=== PATIENT | male | born 1950 | race Caucasian/White ===

== ENCOUNTER 2018-08-12 10:24 | Outpatient (CLI) | payer BC ==
--- NOTE | 2018-08-12 13:38 | ULT ---
BILATERAL LOWER EXTREMITY ULTRASOUND WITH VENOUS DOPPLER DUPLEX: CPT: 16622 ICD-10-PCS: B54D INDICATIONS: Lower extremity edema. TECHNIQUE: Color-flow Doppler, spectral wave-form analysis of pulsed Doppler, and sargent-scale imaging with compre ssion and augmentation, were used to evaluate the bilateral common femoral, femoral, popliteal, poste rior tibial, and superficial femoral veins, and the proximal portions of the profunda femoral and gre ater saphenous veins. FINDINGS: There is appropriate compressibility and flow within the imaged deep venous system of each lower extr emity. There is a heterogeneous, oval-shaped mass of the right inguinal region, slightly greater than 4 cm i n length. This may relate to an enlarged lymph node. There is incidental note of soft tissue edema. IMPRESSION: 1. No deep venous thrombosis of the visualized bilateral lower extremity. 2. Probable enlarged right inguinal lymph node. Recommend clinical correlation. 3. Soft tissue edema. POS: [facility]
== END 2018-08-12 10:25 | disposition home or self-care (01) ==
LOC: BICULT 10:24
PROVIDERS: ATTEND Family Medicine
DX: R60.0 Localized edema (principal)
CPT/HCPCS: 93970

== ENCOUNTER 2018-11-09 08:25 | Outpatient (CLI) | payer BC, OTHER ==
[2018-11-09 09:23] LABS: #Basophils 0.1 thou/uL (0.0-0.2); #Eosinphils 0.2 thou/uL (0.0-0.7); #Lymphocytes 0.7 thou/uL (1.20-3.40); #Monocytes 1.2 thou/uL (0.11-0.59); #Neutrophils 6.3 thou/uL (1.40-6.50); %Basophils 0.8 % (0.0-1.0); %Eosinophils 2.9 % (0.0-10.0); %Lymphocytes 8.4 % (21.0-51.0); %Neutrophils 73.8 % (42.0-75.0); Hemoglobin 13.9 g/dL (14.0-18.0); Mean Corpuscular HGB CONC 32.2 g/dL (32.0-36.0); Mean Corpuscular Hemoglobin 28.1 pg (27.0-31.0); Mean Corpuscular Volume 87.2 fL (78.0-98.0); Mean Platelet Volume 9.3 fL (7.4-10.4); Platelet Count 187 thou/uL (130-400); RBC Distribution Width 14.9 % (11.5-14.5); Red Blood Cell (RBC) Count 4.94 mill/uL (4.70-6.10); White Blood Cell (WBC) Count 8.5 thou/uL (4.8-10.8)
[2018-11-09 09:37] LABS: ALT (SGPT) 25 U/L (8-55); AST (SGOT) 24 U/L (5-34); Albumin 3.9 g/dL (3.4-4.8); Alkaline Phosphatase 144 U/L (40-150); Anion Gap 15 mmol/L (10-20); BUN (Urea Nitrogen) 25 mg/dL (8.4-25.7); Calc. Creatinine Clearance 0 mL/min (70-130); Calcium 9.9 mg/dL (7.8-10.44); Carbon Dioxide 27 mmol/L (23-31); Chloride 96 mmol/L (98-107); Estimated GFR-MDRD 72; Globulin 3.4 g/dL (2.4-3.5); Glucose 265 mg/dL (80-115); Potassium 4.5 mmol/L (3.5-5.1); Protein, Total 7.3 g/dL (5.8-8.1); Sodium 133 mmol/L (136-145)
== END 2018-11-09 08:26 | disposition home or self-care (01) ==
LOC: LABBT 08:25
PROVIDERS: ATTEND Internal Medicine Cardiovascular Disease
DX: Z01.812 Encounter for preprocedural laboratory examination (principal); I42.9 Cardiomyopathy, unspecified
CPT/HCPCS: 80053; 85025

== ENCOUNTER 2018-11-11 05:52 | Day surgery (SDC) | payer BC, OTHER ==
[2018-11-03 09:05] VITALS: BMI 33.6
[2018-11-11] MEDS ORDERED: Midazolam HCl 2 mg/2 ml Vial ONE (06:30)
[2018-11-11] MEDS ORDERED: Fentanyl 100 MCG/2 ML VIAL ONE (06:31)
[2018-11-11] MEDS ORDERED: Lidocaine 1% (PF) 30 ML VIAL ONE (07:10)
[2018-11-11] MEDS ORDERED: Iopamidol 370 76% 100 ML VIAL ONE (10:14)
== END 2018-11-11 12:50 | disposition home or self-care (01) ==
LOC: CCL 05:52
PROVIDERS: ATTEND Internal Medicine Cardiovascular Disease
PROC: 4A023N7 Measurement of Cardiac Sampling and Pressure, Left Heart, Percutaneous Approach (ICD-10-PCS; principal; 2018-11-11)
PROC: B2111ZZ Fluoroscopy of Multiple Coronary Arteries using Low Osmolar Contrast (ICD-10-PCS; principal; 2018-11-11)
DX: I25.10 Atherosclerotic heart disease of native coronary artery without angina pectoris (principal); I42.9 Cardiomyopathy, unspecified; E11.9 Type 2 diabetes mellitus without complications; I10 Essential (primary) hypertension; E78.5 Hyperlipidemia, unspecified; K21.9 Gastro-esophageal reflux disease without esophagitis; I48.1 Persistent atrial fibrillation; I83.893 Varicose veins of bilateral lower extremities with other complications; Z79.01 Long term (current) use of anticoagulants; Z79.4 Long term (current) use of insulin; Z79.82 Long term (current) use of aspirin; Z79.899 Other long term (current) drug therapy; Z88.2 Allergy status to sulfonamides
CPT/HCPCS: 36416; 76942; 93458; C1769; J1644; J2001; J2250; J3010; Q9967

== ENCOUNTER 2018-12-21 17:10 | Inpatient (IN) | payer BC, OTHER ==
[2018-12-21 17:58] LABS: #Eosinphils 0.8 thou/uL (0.0-0.7); #Lymphocytes 0.5 thou/uL (1.20-3.40); #Neutrophils 4.9 thou/uL (1.40-6.50); %Basophils 0.2 % (0.0-1.0); %Eosinophils 11.3 % (0.0-10.0); %Monocytes 13.6 % (0.0-10.0); Mean Corpuscular HGB CONC 32.1 g/dL (32.0-36.0); Mean Corpuscular Hemoglobin 27.2 pg (27.0-31.0); Mean Corpuscular Volume 84.6 fL (78.0-98.0); Mean Platelet Volume 8.6 fL (7.4-10.4); Platelet Count 224 thou/uL (130-400); RBC Distribution Width 15.3 % (11.5-14.5); Red Blood Cell (RBC) Count 4.79 mill/uL (4.70-6.10); White Blood Cell (WBC) Count 7.2 thou/uL (4.8-10.8)
[2018-12-21 18:26] LABS: ALT (SGPT) 13 U/L (8-55); AST (SGOT) 22 U/L (5-34); Albumin 3.6 g/dL (3.4-4.8); Alkaline Phosphatase 198 U/L (40-150); Anion Gap 11 mmol/L (10-20); BUN (Urea Nitrogen) 12 mg/dL (8.4-25.7); Bilirubin, Total 1.2 mg/dL (0.2-1.2); CK (CPK) 52 U/L (30-200); Calc. Creatinine Clearance 0 mL/min (70-130); Calcium 9.5 mg/dL (7.8-10.44); Carbon Dioxide 26 mmol/L (23-31); Chloride 99 mmol/L (98-107); Estimated GFR-MDRD 87; Lipase 58 U/L (8-78); Potassium 4.3 mmol/L (3.5-5.1); Protein, Total 6.6 g/dL (5.8-8.1); Sodium 132 mmol/L (136-145)
[2018-12-21 18:31] LABS: Glucose 58 mg/dL (80-115)
--- NOTE | 2018-12-21 19:04 | RAD ---
EXAM: CHEST ONE VIEW HISTORY: Dyspnea and shortness of breath which started today. COMPARISON: 08/25/2018 FINDINGS: Cardiac silhouette is magnified by projection but does appear mildly enlarged. The left lung base is not well evaluated due to the enlarged cardiac silhouette and portable technique of the study. Visualized lungs are otherwise clear. Degenerative changes are again seen in the spine. Vascular calc ifications are seen in the thoracic aorta. IMPRESSION: 1. Suboptimal evaluation left lung base, but there is otherwise no acute cardiopulmonary process. 2. Mild cardiomegaly.
[2018-12-21 22:08] VITALS: BMI 36.8
[2018-12-21] MEDS ORDERED: HYDROcodone/Acetaminophen 5/325 mg Tablet PO PRN (23:00)
[2018-12-21] MEDS ORDERED: Ondansetron ODT 4 MG TAB PO PRN (23:00)
[2018-12-21] MEDS ORDERED: Acetaminophen 325 MG TAB PO PRN (23:00)
[2018-12-21] MEDS ORDERED: Dextrose 50% Abboject 50 ML SYRINGE SLOW IVP PRN (23:06)
[2018-12-21] MEDS ORDERED: Mupirocin 2% Ointment 22 GM Tube TOP PRN (23:06)
[2018-12-21] MEDS ORDERED: Insulin Regular 300 UNITS/3 ML VIAL SC PRN (23:06)
[2018-12-21] MEDS ORDERED: Dextrose 5% in Water 1,000 ML IV PRN (23:06)
[2018-12-21] MEDS ORDERED: Metolazone 5 MG TAB PO SCH (23:30)
[2018-12-22] MEDS: Clindamycin/D5W 600 MG in Premix Bag 1 BAG IVPB SCH ×3 (00:28→17:10)
[2018-12-22] MEDS ORDERED: HumaLOG 300 UNITS/3 ML VIAL SC SCH (01:00)
--- NOTE | 2018-12-22 03:23 | HP ---
HISTORY OF PRESENT ILLNESS: This is a 68-year-old white male with history of polio, atrial fibrillation, cardiomyopathy, who presents with a 1-hour history of shortness of breath. The patient was at home watching TV and suddenly became short of breath. States he felt his abdomen was swelling. 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 He wears a LifeVest sporadically, he is supposed to wear 24 hours. He was also placed on warfarin for anticoagulation; however, he stopped this due to the diarrhea and dizziness. He was also found to be allergic to Eliquis, Pradaxa, as well as Lasix, important medicines in his condition. The patient even had a recent venous Doppler which was unremarkable. He also forgot to bring his LifeVest to the hospital. Other than some noncompliance, he is a relatively pleasant individual. He has been followed by Dr. Henry and Dr. Watkins for years. He also was found to have a drug eruption rash due to Lasix. He did see Dermatology. He was on clindamycin for a period time; however, his skin infection is returning. He has multiple sores all over. PAST MEDICAL HISTORY: Polio with left leg atrophy since 1951, severe hypertension, hyperlipidemia, recurrent umbilical hernia, history of elevated liver function test, peptic ulcer disease, hypertension, hyperlipidemia, chronic atrial fibrillation, and cardiomyopathy with ejection fraction of 33%. PAST SURGICAL HISTORY: Tonsillectomy. FAMILY HISTORY: Father at 90, mother at 68. Does have siblings with pancreatic cancer, brain cancer. SOCIAL HISTORY: He is a nonsmoker. Does not drink alcohol. He lives with his children. ALLERGIES: PENICILLIN, WHICH CAUSES ANAPHYLAXIS. ELIQUIS AND PRADAXA CAUSE A RASH. WARFARIN CAUSES DIZZINESS AND FEELING OF CHOKING, AND LASIX CAUSES A DRUG ERUPTION RASH. REVIEW OF SYSTEMS: As above. PHYSICAL EXAMINATION: VITAL SIGNS: Temp 97.5, pulse 74, respirations 20, blood pressure 164/108. GENERAL: The patient in no acute distress at this time. He is doing well on his O2. HEENT: Clear. NECK: Supple. HEART: Regular rate and rhythm. LUNGS: Bibasilar rales. ABDOMEN: Soft, nontender. EXTREMITIES: Erythema, multiple ulcer type lesions consistent with drug eruption. ASSESSMENT: 1. Coronary artery disease with acute exacerbation of congestive heart failure. 2. Shortness of breath. 3. Noncompliance with LifeVest and anticoagulation. 4. Chronic atrial fibrillation. 5. Cellulitis of the lower extremity. 6. Drug eruption from Lasix. PLAN: 1. Admit. 2. The patient needs diuresis. However, Lasix causes a drug eruption type rash. We will give a 5 mg of metolazone tonight. I doubt the patient will tolerate torsemide either. 3. We will do Accu-Cheks. 4. We will start clindamycin for cellulitis. He has responded to this in the past. 5. Consult Dr. Watkins in the a.m. Need to figure out what we can do for anticoagulation. 6. We will continue to follow. Job ID: [id number]
[2018-12-22 07:06] LABS: Hemoglobin 12.5 g/dL (14.0-18.0); Mean Corpuscular HGB CONC 31.3 g/dL (32.0-36.0); Mean Corpuscular Hemoglobin 26.7 pg (27.0-31.0); Mean Corpuscular Volume 85.3 fL (78.0-98.0); Mean Platelet Volume 8.9 fL (7.4-10.4); Platelet Count 223 thou/uL (130-400); RBC Distribution Width 15.3 % (11.5-14.5); Red Blood Cell (RBC) Count 4.68 mill/uL (4.70-6.10); White Blood Cell (WBC) Count 6.2 thou/uL (4.8-10.8)
[2018-12-22 07:16] LABS: ALT (SGPT) 13 U/L (8-55); AST (SGOT) 18 U/L (5-34); Albumin 3.5 g/dL (3.4-4.8); Alkaline Phosphatase 187 U/L (40-150); Anion Gap 14 mmol/L (10-20); BUN (Urea Nitrogen) 12 mg/dL (8.4-25.7); Bilirubin, Total 1.2 mg/dL (0.2-1.2); Calc. Creatinine Clearance 132 mL/min (70-130); Calcium 9.3 mg/dL (7.8-10.44); Carbon Dioxide 25 mmol/L (23-31); Chloride 98 mmol/L (98-107); Estimated GFR-MDRD Greater than 90; Globulin 3.2 g/dL (2.4-3.5); Glucose 102 mg/dL (80-115); Protein, Total 6.7 g/dL (5.8-8.1); Sodium 133 mmol/L (136-145)
[2018-12-22 08:20] LABS: Band 4 % (5-11); Eosinophils 20 % (0-10); Lymphocytes 5 % (21-51); MDiff Complete? YES; Monocytes 13 % (0-10); Neutrophil 56 % (42-75); Platelet Morphology Comment Appears Adequate; Polychromasia SLIGHT = 2-3 cells (100X) (0-2/hpf); Reactive Lymphocytes 1 % (0-10)
[2018-12-22] MEDS: Alogliptin 6.25 MG TAB PO SCH ×2 (08:53→21:35)
[2018-12-22] MEDS: Rosuvastatin 5 MG TAB PO SCH (08:54)
[2018-12-22] MEDS: metFORMIN 500 MG TAB PO SCH ×2 (08:54→21:35)
[2018-12-22] MEDS: Metolazone 5 MG TAB PO SCH (08:54)
[2018-12-22] MEDS: Carvedilol 6.25 MG TAB PO SCH (08:55)
[2018-12-22] MEDS: Aspirin 325 MG TAB PO SCH (08:55)
[2018-12-22] MEDS ORDERED: Lisinopril 10 MG TAB PO SCH (09:00)
[2018-12-22] MEDS ORDERED: Enoxaparin Sodium 100 MG/ML SYRINGE SC SCH (09:00)
--- NOTE | 2018-12-22 10:24 | PRG ---
DATE OF SERVICE: 12/22/2018 SUBJECTIVE: The patient is breathing easier this morning. He is feeling better. States that his leg swelling has gone down from yesterday also. OBJECTIVE: VITAL SIGNS: Temperature 97.4, pulse 71, respirations 20, pulse ox 97, and blood pressure 155/87. I's and O's, the patient is a -410 for the night. He did put out 650 mL and took in 240 mL. HEART: Regular rate and rhythm. LUNGS: Decreased bibasilar rales. ABDOMEN: Soft. EXTREMITIES: Still with marked erythema, may be slightly less edematous. Although, the patient states his legs are feeling better. ASSESSMENT: 1. Acute exacerbation of congestive heart failure with improvement on metolazone only. The patient is allergic to Lasix, which has caused a drug eruption. 2. Shortness of breath, improved. 3. Cellulitis of the lower extremities, presently on clindamycin. 4. Noncompliance with LifeVest and anticoagulation. 5. Chronic atrial fibrillation. 6. Drug eruption from Lasix. PLAN: 1. Continue with metolazone for now. 2. Consult Dr. Watkins today. 3. Continue clindamycin. 4. Elevate legs. 5. CBC and comp still pending. Job ID: [id number]
[2018-12-22] MEDS: HumaLOG 300 UNITS/3 ML VIAL SC SCH (14:05)
[2018-12-22] MEDS ORDERED: Enoxaparin Sodium 40 MG/0.4 ML SYRINGE SC SCH (21:00)
[2018-12-22] MEDS: Enoxaparin Sodium 100 MG/ML SYRINGE SC SCH (21:36)
[2018-12-23] MEDS: Clindamycin/D5W 600 MG in Premix Bag 1 BAG IVPB SCH ×3 (00:06→15:59)
--- NOTE | 2018-12-23 01:25 | CON ---
DATE OF CONSULTATION: 12/22/2018 REASON FOR CONSULTATION: Congestive heart failure. PRIMARY PICTURE COPYIST: Dr. Watkins. HISTORY OF PRESENT ILLNESS: Mr. Aguilar is a pleasant 68-year-old gentleman with severely depressed left ventricular function. He had undergone cardiac catheterization here recently and found to have nonobstructive atherosclerotic heart disease. He had a nonischemic cardiomyopathy diagnosed. The patient is being maintained on furosemide, but developed a rash and it was thought that this was likely the source of the rash. He was taken off furosemide, but developed increasing swelling and then more and more trouble breathing. Finally came to the emergency room, was found to be in congestive heart failure. The patient did receive diuretics here and is breathing better. He is responding to the diuretics here. No chest pain or pressure. MEDICATION: At home, he was takin. Rosuvastatin. 2. Insulin. 3. Lisinopril. 4. Carvedilol. 5. Not on a diuretic from the list, that is on the chart. ALLERGIES: 1. POSSIBLY TO LASIX. 2. ? APIXABAN. 3. WARFARIN IS ALSO LISTED. 4. DABIGATRAN IS LISTED. 5. IT IS NOT CERTAIN, IF HE IS ALLERGIC TO FUROSEMIDE, BUT IT IS THOUGHT THIS IS POSSIBLE. REVIEW OF SYSTEMS: CONSTITUTIONAL: No significant weight loss. He is retaining fluid. VISION: No changes. HEARING: No changes. PULMONARY: No cough or wheezing. GASTROINTESTINAL: No nausea, vomiting or diarrhea. SKIN: No rashes. NEUROLOGIC: No unilateral weakness or numbness. PSYCHIATRIC: No unusual depression or anxiety. PHYSICAL EXAMINATION: GENERAL: This is a pleasant gentleman, 5 feet 8 inches tall, 244 pounds. EYES: Sclerae nonicteric. MOUTH: Mucous membranes moist. NECK: Supple. No lymphadenopathy. LUNGS: Clear. CARDIAC: Normal S1, normal S2. I do not hear murmur, rub, or gallop. ABDOMEN: Soft and nontender. No hepatosplenomegaly. EXTREMITIES: Warm, dry. No clubbing or cyanosis. There is moderate edema. There is some reddish discoloration of the lower extremities from the midcalf down compatible with cellulitis. PERTINENT LABORATORY DATA: Hemoglobin is 12.5, WBC 6.2, sodium is 133, potassium is 4.0. Cardiac enzymes were negative. BNP is 2214. IMAGING: EKG does reveal atrial fibrillation. ASSESSMENT: 1. Congestive heart failure, systolic-diastolic mixed. 2. Volume overloaded. 3. Possible allergic response to furosemide. 4. Atrial fibrillation. 5. ? allergy to apixaban and dabigatran and Coumadin according to the notes. 6. Diabetes. PLAN: 1. Continue anticoagulation with enoxaparin. 2. Stop lisinopril. 3. Substitute Entresto and increase dose as tolerated. 4. We will need to hold that for at least one dose at 36 to 48 hours before the Entresto can be started. 5. He is on metolazone. 6. Dr. Watkins will resume care tomorrow. Most likely, the patient will be here a few nights to compensate his congestive heart failure, which is currently not compensated. Job ID: [id number]
[2018-12-23 06:14] LABS: ALT (SGPT) 13 U/L (8-55); AST (SGOT) 20 U/L (5-34); Albumin 3.4 g/dL (3.4-4.8); Alkaline Phosphatase 195 U/L (40-150); Anion Gap 11 mmol/L (10-20); BUN (Urea Nitrogen) 15 mg/dL (8.4-25.7); Bilirubin, Total 1.1 mg/dL (0.2-1.2); Calc. Creatinine Clearance 108 mL/min (70-130); Calcium 9.2 mg/dL (7.8-10.44); Carbon Dioxide 29 mmol/L (23-31); Chloride 98 mmol/L (98-107); Estimated GFR-MDRD 73; Glucose 90 mg/dL (80-115); Potassium 3.9 mmol/L (3.5-5.1); Protein, Total 6.4 g/dL (5.8-8.1); Sodium 134 mmol/L (136-145)
[2018-12-23 06:26] LABS: Eosinophils 1 % (0-10); Hemoglobin 12.2 g/dL (14.0-18.0); Hypochromia SLIGHT = 6-15 cells (100X) (0-5/hpf); Lymphocytes 4 % (21-51); MDiff Complete? YES; Mean Corpuscular HGB CONC 31.6 g/dL (32.0-36.0); Mean Corpuscular Volume 85.4 fL (78.0-98.0); Mean Platelet Volume 8.4 fL (7.4-10.4); Monocytes 6 % (0-10); Neutrophil 89 % (42-75); Platelet Count 213 thou/uL (130-400); Platelet Morphology Comment Appears Adequate; RBC Distribution Width 15.4 % (11.5-14.5); Red Blood Cell (RBC) Count 4.54 mill/uL (4.70-6.10)
[2018-12-23] MEDS: Metolazone 5 MG TAB PO SCH (08:04)
[2018-12-23] MEDS: Alogliptin 6.25 MG TAB PO SCH ×2 (08:05→20:47)
[2018-12-23] MEDS: Carvedilol 6.25 MG TAB PO SCH (08:05)
[2018-12-23] MEDS: Aspirin 325 MG TAB PO SCH (08:05)
[2018-12-23] MEDS: metFORMIN 500 MG TAB PO SCH ×2 (08:05→20:47)
[2018-12-23] MEDS: Rosuvastatin 5 MG TAB PO SCH (08:05)
[2018-12-23] MEDS: Enoxaparin Sodium 100 MG/ML SYRINGE SC SCH (08:05)
--- NOTE | 2018-12-23 10:48 | PRG ---
DATE OF SERVICE: 12/23/2018 SUBJECTIVE: The patient has 2 major issues. One is congestive heart failure with limited ability to treat due to allergy to Lasix. He was started on Entresto by Dr. Bates. The patient is breathing easier and is slowly improving. He has a positive diuresis. His second issue is cellulitis of his lower extremity. He does have a drug eruption and is on clindamycin. His redness and swelling are slowly resolving, but still significantly present. Both situations may require the patient to stay several more days in the hospital. He is trying to elevate as much as possible. OBJECTIVE: VITAL SIGNS: Temperature 97.3, pulse 70, respirations 20, and blood pressure 176/86. GENERAL: No acute distress on 2 L O2 nasal cannula. HEART: Regular rate. LUNGS: Appears to be improved from yesterday. Left basilar rales present. ABDOMEN: Soft. EXTREMITIES: The diffuse erythema is starting to show blotchy areas of improvement. Drug eruption type rash is improving also. LABORATORY DATA: White count 7.0, hemoglobin and hematocrit of 12 and 38, platelet of 213. Sodium 134, creatinine 1.01. Blood sugar 133, 85, and 71. ASSESSMENT: 1. Acute exacerbation of combined systolic/diastolic congestive heart failure with an allergy to Lasix. 2. Drug eruption, improving. 3. Cellulitis of the lower extremity, presently on clindamycin, improving. 4. Noncompliance with LifeVest and anticoagulation. 5. Chronic atrial fibrillation, presently on Lovenox. 6. Drug eruption from Lasix, improving. PLAN: 1. Continue metolazone. 2. Entresto to begin. 3. Continue clindamycin. 4. Continue with leg elevation. 5. We will continue to follow the patient in the hospital for the next several days. Job ID: [id number]
[2018-12-23] MEDS: HumaLOG 300 UNITS/3 ML VIAL SC SCH (13:51)
--- NOTE | 2018-12-23 17:36 | PDOC.CTH ---
Cardiology Progress Note - Subjective Feels beter today. Has diuresed - Objective Vital Signs Temp Pulse Resp BP BP Pulse Ox 12/23/18 16:00 97.4 F L 68 20 137/87 98 12/23/18 12:00 97.6 F 69 20 144/82 H 97 12/23/18 08:05 176/86 H 12/23/18 07:55 97.3 F L 70 20 176/86 H 98 Weight 240 lb 11.2 oz 12/22/18 12/23/18 12/24/18 06:59 06:59 06:59 Intake Total 240 1100 Output Total 650 1350 Balance -410 -250 - Physical Examination General/Neuro: NAD Neck: carotid US brisk, no JVD present Lungs: unlabored respirations Heart: PMI normal, other: (irr) Abdomen: NT/ND, soft Extremities: + femoral B Other PE findings: diffuse rash, mainly to LE - Labs Result Diagrams: 12/23/18 05:35 12/23/18 05:35 - Assessment/Plan NICM Afib Rash Rash may be related to lasix I called pharmacy Ethacrynic acid is an alternative but not available Continue with zaroxyln Restart eliquis; unlikely culprit for rash
[2018-12-23] MEDS: Apixaban 5 MG TAB PO SCH (20:46)
[2018-12-24] MEDS: Clindamycin 150 MG CAP PO SCH ×3 (00:15→15:46)
[2018-12-24 04:46] LABS: Hemoglobin 12.5 g/dL (14.0-18.0); Platelet Count 238 thou/uL (130-400)
[2018-12-24 05:05] LABS: Anion Gap 13 mmol/L (10-20); BUN (Urea Nitrogen) 14 mg/dL (8.4-25.7); Calc. Creatinine Clearance 119 mL/min (70-130); Calcium 9.1 mg/dL (7.8-10.44); Carbon Dioxide 28 mmol/L (23-31); Chloride 96 mmol/L (98-107); Estimated GFR-MDRD 82; Glucose 82 mg/dL (80-115); Potassium 3.6 mmol/L (3.5-5.1); Sodium 133 mmol/L (136-145)
--- NOTE | 2018-12-24 06:44 | PDOC.CTH ---
Cardiology Progress Note - Subjective Feels better. Rasha lso better. - Objective Vital Signs Temp Pulse Resp BP Pulse Ox 12/24/18 03:49 97.8 F 67 19 134/86 98 12/23/18 19:34 97.4 F L 64 18 137/64 98 Weight 240 lb 9.6 oz 12/22/18 12/23/18 12/24/18 06:59 06:59 06:59 Intake Total 240 1100 960 Output Total 650 1350 1475 Balance -410 -825 -846 - Physical Examination General/Neuro: alert & oriented x3, NAD Neck: carotid US brisk, no JVD present Lungs: unlabored respirations Heart: PMI normal, other: Abdomen: no HSM, NT/ND, soft - Telemetry Telemetry Rhythm: irr - Labs Result Diagrams: 12/24/18 04:12 12/24/18 04:12 - Assessment/Plan NICM Afib Rash REC Avoid lasix Continued diuresis with metolazone home soon? Restart ACT REC 12/23/2018 Rash may be related to lasix I called pharmacy Ethacrynic acid is an alternative but not available Continue with zaroxyln Restart eliquis; unlikely culprit for rash
[2018-12-24] MEDS: Metolazone 5 MG TAB PO SCH (08:16)
[2018-12-24] MEDS: Carvedilol 6.25 MG TAB PO SCH (08:16)
[2018-12-24] MEDS: Alogliptin 6.25 MG TAB PO SCH ×2 (08:17→20:24)
[2018-12-24] MEDS: metFORMIN 500 MG TAB PO SCH ×2 (08:17→20:25)
[2018-12-24] MEDS: Aspirin 325 MG TAB PO SCH (08:18)
[2018-12-24] MEDS: Apixaban 5 MG TAB PO SCH ×2 (08:18→20:25)
[2018-12-24] MEDS: Rosuvastatin 5 MG TAB PO SCH (08:18)
[2018-12-24] MEDS: Sacubitril 24.5 MG/Valsartan 25.5 MG TABLET PO SCH ×2 (08:18→20:25)
[2018-12-24] MEDS: Mupirocin 2% Ointment 22 GM Tube TOP SCH ×3 (08:19→20:25)
[2018-12-24] MEDS: Hydrocerin (Eucerin) Cream 120 gm Jar TOP SCH (10:27)
[2018-12-24] MEDS: HumaLOG 300 UNITS/3 ML VIAL SC SCH (12:25)
--- NOTE | 2018-12-24 16:36 | PRG ---
DATE OF SERVICE: 12/24/2018 SUBJECTIVE: The patient without complaints. No complaints of chest pain, shortness of breath, nausea, or vomiting. Does complain of itchiness of his lower extremity. OBJECTIVE: VITAL SIGNS: Temperature 97.8, pulse 67, respirations 19, pulse ox 98, and blood pressure 134/86. HEART: Irregular rhythm. LUNGS: Clear. ABDOMEN: Soft. EXTREMITIES: Lower extremity, erythema much improved. Erythema of the foots resolved. Still has of the lower extremity. Skin lesions are slowly improving. 1+ edema is present in the lower extremity. LABORATORY DATA: H and H 12 and 39. Sodium 133 and potassium 3.6. BNP 1778. ASSESSMENT: 1. Acute exacerbation combined systolic/diastolic congestive heart failure. 2. Drug eruption secondary to Lasix. 3. Cellulitis of lower extremity, presently on clindamycin, slowly improving. 4. Chronic atrial fibrillation. Eliquis restarted. PLAN: 1. Obtain a PT consult. Need to immobilize the patient. 2. Eliquis started. 3. Clindamycin, change to p.o. 4. Bactroban and Eucerin ointment to lower extremities b.i.d. Job ID: [id number]
[2018-12-25] MEDS: Clindamycin 150 MG CAP PO SCH ×3 (00:09→15:02)
[2018-12-25 05:35] LABS: Anion Gap 10 mmol/L (10-20); BUN (Urea Nitrogen) 12 mg/dL (8.4-25.7); Calc. Creatinine Clearance 124 mL/min (70-130); Calcium 9.3 mg/dL (7.8-10.44); Carbon Dioxide 33 mmol/L (23-31); Chloride 95 mmol/L (98-107); Estimated GFR-MDRD 88; Glucose 106 mg/dL (80-115); Potassium 3.9 mmol/L (3.5-5.1); Sodium 134 mmol/L (136-145)
[2018-12-25] MEDS: Metolazone 5 MG TAB PO SCH (08:12)
[2018-12-25] MEDS: Carvedilol 6.25 MG TAB PO SCH (08:13)
[2018-12-25] MEDS: Alogliptin 6.25 MG TAB PO SCH (08:13)
[2018-12-25] MEDS: Apixaban 5 MG TAB PO SCH (08:13)
[2018-12-25] MEDS: Aspirin 325 MG TAB PO SCH (08:13)
[2018-12-25] MEDS: Rosuvastatin 5 MG TAB PO SCH (08:14)
[2018-12-25] MEDS: Hydrocerin (Eucerin) Cream 120 gm Jar TOP SCH (08:14)
[2018-12-25] MEDS: Sacubitril 24.5 MG/Valsartan 25.5 MG TABLET PO SCH (08:14)
[2018-12-25] MEDS: metFORMIN 500 MG TAB PO SCH (08:14)
[2018-12-25] MEDS: Mupirocin 2% Ointment 22 GM Tube TOP SCH ×2 (08:15→15:03)
[2018-12-25 12:20] VITALS: BP 112/58; TEMP 98.3
[2018-12-25] MEDS: HumaLOG 300 UNITS/3 ML VIAL SC SCH (12:30)
--- NOTE | 2018-12-25 14:20 | CON ---
DATE OF CONSULTATION: 12/25/2018 TIME: 8 a.m. SUBJECTIVE: The patient continues to improve. He was seen by Dr. Watkins this morning and stated that from a cardiac standpoint, he is ready to go home. His redness of his lower extremities has improved dramatically. The patient is desiring to go home. He did well with Physical Therapy yesterday. OBJECTIVE: VITAL SIGNS: Temperature 98.1, pulse 68, respirations 20, pulse ox 98 on 2 L, and blood pressure 132/72. HEART: Irregular rhythm. LUNGS: Clear. ABDOMEN: Soft. EXTREMITIES: The patient's cellulitis continues to improve on a daily basis. LABORATORY DATA: Sodium 134, potassium 3.9. Blood sugar 106, 128. ASSESSMENT: 1. Acute exacerbation of combined systolic/diastolic congestive heart failure. 2. Drug eruption secondary to Lasix. 3. Cellulitis of lower extremity, improving. 4. Chronic atrial fibrillation. PLAN: 1. The patient to receive physical therapy today. 2. Wean O2. 3. Continue clindamycin p.o. for another 10 days. 4. Continue Eliquis. 5. Continue Bactroban and Eucerin to the lower extremities. 6. Instructed the patient to continue to elevate his legs at home. 7. To follow up with Dr. Henry next week. Job ID: [id number]
--- NOTE | 2018-12-26 02:34 | DIS ---
DATE OF ADMISSION: 12/21/2018 DATE OF DISCHARGE: 12/25/2018 DISCHARGE DIAGNOSES: 1. Acute exacerbation of combined systolic/diastolic congestive heart failure with a previous ejection fraction of 30%. 2. Drug eruption secondary to Lasix. 3. Cellulitis of the lower extremity. 4. Chronic atrial fibrillation. 5. Coronary artery disease status post stent. DISCHARGE MEDICATIONS: Include; 1. Entresto 24.5/25.5 p.o. b.i.d. 2. Crestor 5 daily. 3. Bactroban b.i.d. 4. Metolazone 5 mg p.o. daily. 5. Glucophage 1000 p.o. b.i.d. 6. NovoLog 18 units subcu daily. 7. Clindamycin 300 p.o. t.i.d. #30. 8. Alogliptin 12.5 p.o. b.i.d. 9. Eliquis 5 b.i.d. 10. Aspirin 325 daily. 11. Coreg 6.25 daily. BRIEF HISTORY: This is a 68-year-old white male with history of polio, atrial fibrillation, and cardiomyopathy, who presents with a 1 hour history of shortness of breath of sudden onset while watching TV. He felt his abdomen swelling. He has a long history of AFib. He was prescribed a LifeVest; however, he has not been wearing it lately. He was also started on warfarin, but stopped this due to diarrhea and dizziness. He was recently discovered to be allergic to Lasix and broke out in a rash. He did see Dermatology who confirmed a drug rash. He is followed by Dr. Henry and Dr. Watkins. HOSPITAL COURSE: The patient was started on metolazone 5 mg in over several days, he did diurese slowly. His drug eruption rash also improved slowly during his hospital stay. The redness and swelling of his legs also improved dramatically. He still has some erythema of his lower extremity. We have also been using Bactroban and Eucerin cream to his extremities. He is doing well. He is breathing easier. He has diuresed. We will keep him on metolazone. Entresto was also started. He has been instructed to keep his legs elevated as much as possible. He has also been instructed on the importance of wearing the LifeVest 24/7. He will follow up with Dr. Henry next week. His new medications to include Entresto, Bactroban, clindamycin, and Eliquis will be called out to his pharmacy. Latest H and H 12 and 39, electrolytes normal; blood sugars 106, 128, 139; creatinine 0.86, BUN 12. Job ID: [id number]
== END 2018-12-25 15:16 | disposition home or self-care (01) | DRG 292 ==
LOC: ERS 17:10 → OBSVTOIN 21:55 → 2SW 21:55 → 2NO 12-23 19:37
PROVIDERS: ADMIT Family Medicine; ATTEND Family Medicine
DX: I11.0 Hypertensive heart disease with heart failure (principal); L03.116 Cellulitis of left lower limb; L03.115 Cellulitis of right lower limb; I48.2 Chronic atrial fibrillation; I50.43 Acute on chronic combined systolic (congestive) and diastolic (congestive) heart failure; E78.5 Hyperlipidemia, unspecified; I25.10 Atherosclerotic heart disease of native coronary artery without angina pectoris; I42.8 Other cardiomyopathies; Z88.0 Allergy status to penicillin; Z86.12 Personal history of poliomyelitis; Z88.8 Allergy status to other drugs, medicaments and biological substances; Z87.11 Personal history of peptic ulcer disease; Z79.01 Long term (current) use of anticoagulants; Z91.14 Patient's other noncompliance with medication regimen
CPT/HCPCS: 36415; 36416; 71045; 80048; 80053; 82550; 83690; 83735; 83880; 85014; 85018; 85025; 85049; 93005; 93798; 94760; J1650; J3490

== ENCOUNTER 2019-02-27 08:58 | Emergency (ER) | payer BC, OTHER ==
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
== END 2019-02-27 11:02 | disposition home or self-care (01) ==
LOC: ERS 08:58
DX: M25.512 Pain in left shoulder (principal); I11.0 Hypertensive heart disease with heart failure; I50.9 Heart failure, unspecified; I49.9 Cardiac arrhythmia, unspecified; I48.91 Unspecified atrial fibrillation; E11.9 Type 2 diabetes mellitus without complications; E78.5 Hyperlipidemia, unspecified; E78.00 Pure hypercholesterolemia, unspecified; V49.9XXA Car occupant (driver) (passenger) injured in unspecified traffic accident, initial encounter
CPT/HCPCS: 71046; 72040

== ENCOUNTER 2019-06-04 08:44 | Day surgery (SDC) | payer BC, OTHER ==
[2019-06-03 13:01] VITALS: BMI 28.3
[2019-06-04] MEDS ORDERED: Lidocaine 1% PF 5 ML VIAL ONE ×2 (09:14→11:46)
[2019-06-04] MEDS ORDERED: PROPOFOL 0 ML ONE (09:14)
[2019-06-04] MEDS ORDERED: PROPOFOL 20 ML ONE (09:15)
[2019-06-04 09:31] LABS: Hemoglobin 16.1 g/dL (14.0-18.0); Mean Corpuscular HGB CONC 34.5 g/dL (32.0-36.0); Mean Corpuscular Hemoglobin 29.4 pg (27.0-31.0); Mean Corpuscular Volume 85.3 fL (78.0-98.0); Mean Platelet Volume 7.7 fL (7.4-10.4); Platelet Count 203 thou/uL (130-400); Red Blood Cell (RBC) Count 5.48 mill/uL (4.70-6.10); White Blood Cell (WBC) Count 6.5 thou/uL (4.8-10.8)
[2019-06-04 09:32] LABS: INR-International Normal Ratio 1.2; PTT 31.1 SEC (22.9-36.1); Prothrombin Time 15.4 SEC (12.0-14.7)
[2019-06-04 09:48] LABS: Band 5 % (5-11); Eosinophils 7 % (0-10); Lymphocytes 12 % (21-51); MDiff Complete? YES; Monocytes 22 % (0-10); Neutrophil 51 % (42-75); Platelet Morphology Comment Appears Adequate; RBC Morphology Normal; Reactive Lymphocytes 2 % (0-10)
[2019-06-04 09:50] LABS: Anion Gap 12 mmol/L (10-20); BUN (Urea Nitrogen) 13 mg/dL (8.4-25.7); Calc. Creatinine Clearance 82 mL/min (70-130); Calcium 9.9 mg/dL (7.8-10.44); Carbon Dioxide 29 mmol/L (23-31); Chloride 89 mmol/L (98-107); Estimated GFR-MDRD 73; Glucose 376 mg/dL (80-115); Potassium 4.4 mmol/L (3.5-5.1); Sodium 126 mmol/L (136-145)
[2019-06-04] MEDS ORDERED: PROPOFOL 200 MG/20 ML VIAL ONE (11:46)
--- NOTE | 2019-06-04 16:38 | OP ---
DATE OF PROCEDURE: 06/04/2019 PROCEDURE PERFORMED: Electrical cardioversion. REFERRING PHYSICIANS: Leobardo Henry DO REASON FOR PROCEDURE: Mr. Aguilar is a pleasant 69-year-old gentleman with history of nonischemic cardiomyopathy, severely reduced LVEF, who had persisting atrial fibrillation. He had never had prior cardioversion and a cardioversion is planned, hence adequate anticoagulation is on board. DESCRIPTION OF PROCEDURE: The patient received propofol by Anesthesia specialist. After adequate level of sedation achieved, a synchronized 200-joule shock promptly converted the patient back to sinus rhythm. Converted rhythm is sinus rhythm at 80 beats per minute. The patient tolerated the procedure well. No complications noted. CONCLUSION: Successful cardioversion. PLAN: Check ICD and monitor for recurrent arrhythmias. Consider antiarrhythmic agents versus ablation if symptomatic atrial fibrillation recurs. Job ID: [id number]
== END 2019-06-04 10:55 | disposition home or self-care (01) ==
LOC: CCL 08:44
PROVIDERS: ATTEND Internal Medicine Cardiovascular Disease
PROC: 5A2204Z Restoration of Cardiac Rhythm, Single (ICD-10-PCS; principal; 2019-06-04)
DX: I48.11 Longstanding persistent atrial fibrillation (principal); I11.0 Hypertensive heart disease with heart failure; I50.22 Chronic systolic (congestive) heart failure; E11.9 Type 2 diabetes mellitus without complications; E78.00 Pure hypercholesterolemia, unspecified; I25.10 Atherosclerotic heart disease of native coronary artery without angina pectoris; Z79.01 Long term (current) use of anticoagulants; Z79.899 Other long term (current) drug therapy; Z88.0 Allergy status to penicillin; Z88.8 Allergy status to other drugs, medicaments and biological substances; Z95.810 Presence of automatic (implantable) cardiac defibrillator
CPT/HCPCS: 80048; 85025; 85610; 85730; 92960; J2001; J2704

== ENCOUNTER 2019-06-12 00:31 | Emergency (ER) | payer BC, OTHER ==
[2019-06-12] MEDS ORDERED: Oxymetazoline HCl 0.05% (30 ML BOT) ONE (00:54)
== END 2019-06-12 02:09 | disposition home or self-care (01) ==
LOC: ERS 00:31
DX: R04.0 Epistaxis (principal); I11.0 Hypertensive heart disease with heart failure; I50.9 Heart failure, unspecified; I25.10 Atherosclerotic heart disease of native coronary artery without angina pectoris; I49.9 Cardiac arrhythmia, unspecified; I48.91 Unspecified atrial fibrillation; E11.9 Type 2 diabetes mellitus without complications; E78.5 Hyperlipidemia, unspecified; E78.00 Pure hypercholesterolemia, unspecified
CPT/HCPCS: 99283

== ENCOUNTER 2019-12-28 14:40 | Inpatient (IN) | payer BC, OTHER, MEDICARE ==
[2019-12-28 16:31] LABS: Hemoglobin 5.9 g/dL (14.0-18.0); Mean Corpuscular HGB CONC 29.7 g/dL (32.0-36.0); Mean Corpuscular Volume 60.8 fL (78.0-98.0); RBC Distribution Width 17.5 % (11.5-14.5); Red Blood Cell (RBC) Count 3.25 mill/uL (4.70-6.10)
[2019-12-28 16:34] LABS: INR-International Normal Ratio 1.4; PTT 37.2 sec (22.9-36.1); Prothrombin Time 17.4 sec (12.0-14.7)
[2019-12-28 16:46] LABS: ALT (SGPT) 10 U/L (8-55); AST (SGOT) 13 U/L (5-34); Albumin 3.9 g/dL (3.4-4.8); Alkaline Phosphatase 54 U/L (40-110); Anion Gap 12 mmol/L (10-20); BUN (Urea Nitrogen) 12 mg/dL (8.4-25.7); Bilirubin, Total 0.8 mg/dL (0.2-1.2); Calc. Creatinine Clearance 0 mL/min (70-130); Carbon Dioxide 28 mmol/L (23-31); Chloride 87 mmol/L (98-107); Estimated GFR-MDRD Greater than 90; Globulin 2.7 g/dL (2.4-3.5); Glucose 133 mg/dL (80-115); Potassium 3.7 mmol/L (3.5-5.1); Protein, Total 6.6 g/dL (5.8-8.1); Sodium 123 mmol/L (136-145)
[2019-12-28 16:56] LABS: Band 13 % (5-11); Eosinophils 5 % (0-10); Hypochromia MODERATE=16-30 cells (100X) (0-5/hpf); Large Platelets SLIGHT; Lymphocytes 5 % (21-51); MDiff Complete? YES; Mean Platelet Volume 12.2 fL (7.4-10.4); Microcytosis MODERATE=15-30 cells (100X) (0-5/hpf); Monocytes 16 % (0-10); Neutrophil 60 % (42-75); Platelet Count 225 thou/uL (130-400); Platelet Morphology Comment Appears Adequate; Polychromasia SLIGHT = 2-3 cells (100X) (0-2/hpf); Schistocytes SLIGHT = 2-5 cells (100X) (0-1/hpf); Target Cells SLIGHT = 2-5 cells (100X) (0-1/hpf)
[2019-12-28] MEDS ORDERED: Pantoprazole 40 MG VIAL ONE (17:45)
--- NOTE | 2019-12-28 17:59 | RAD ---
AP CHEST: 12/28/19 INDICATIONS: CHF. Comparison made to exam of 02/27/19. Mild cardiomegaly. Dual lead pacemaker device is unchanged. The lungs appear clear. No infiltrate. No evidence of vascular congestion or edema. No significant effusion. IMPRESSION: No acute lung process. POS: AGW
[2019-12-28] MEDS ORDERED: Furosemide 40 MG/4 ML VIAL SLOW IVP SCH (19:00)
[2019-12-28] MEDS ORDERED: Dextrose 5% in Water 1,000 ML IV PRN (19:07)
[2019-12-28] MEDS ORDERED: Ondansetron PF 4 MG/2 ML Vial IVP PRN (19:07)
[2019-12-28] MEDS ORDERED: Dextrose 50% Abboject 50 ML SYRINGE SLOW IVP PRN (19:07)
[2019-12-28] MEDS ORDERED: Guaifenesin DM 100-10/5 ML UDCUP PO PRN (19:07)
[2019-12-28] MEDS ORDERED: Acetaminophen 325 MG TAB PO PRN (19:07)
[2019-12-28 20:04] LABS: Troponin I 0.014 ng/mL (< 0.028)
[2019-12-28] MEDS: Carvedilol 6.25 MG TAB PO SCH (20:11)
[2019-12-28] MEDS: Sacubitril 49 MG/Valsartan 51 MG TABLET PO SCH (20:11)
[2019-12-28] MEDS ORDERED: Triamterene/Hydrochlorothiazide 37.5 mg/25 mg Tablet PO SCH (21:00)
--- NOTE | 2019-12-28 21:02 | HP ---
REASON FOR ADMISSION: Acute blood loss anemia and GI bleed. HISTORY OF PRESENTING ILLNESS: The patient gives history of having gone to his primary care physician yesterday for blood work. Around 2 p.m., the patient was called and told that his hemoglobin is 6.1 g and he needs to go to the emergency room immediately. He has history of having black stools off and on for the last 3 months. The patient in fact had seen Dr. Samayoa, billiard player when his hemoglobin was 8.2 g. He had seen her last week, I believe. The plan was for colonoscopy in the hospital due to him having a defibrillator in the coming weeks. On arrival here, the patient was found to have had hemoglobin of 5.9 g and 2 units of packed cell transfusion has been ordered here. He has no complaints of abdominal pain, nausea, or vomiting. His last colonoscopy was in 1991. He is on Eliquis for atrial fibrillation. PAST MEDICAL AND SURGICAL HISTORY: Chronic atrial fibrillation, hypertension, diabetes mellitus type 2, dyslipidemia, history of CHF which has improved from 20% ejection fraction to 47% around 2 months back when he saw Dr. Watkins GERD, AICD with a pacemaker, prior cardiac catheterization with mild coronary artery disease, cardioversion for his atrial fibrillation in the past. History of polio with left lower extremity paralysis, ambulates with a brace. CURRENT MEDICATIONS: The patient is on 1. Entresto 24/26 mg twice daily. 2. Doxycycline, which was initiated yesterday for multiple skin sores by his primary care physician. 3. Coreg 6.25 mg twice daily. 4. Metolazone 5 mg daily. Please note, the patient is allergic to Lasix. 5. Rosuvastatin 5 mg p.o. daily. 6. Janumet mg twice daily. 7. Eliquis 5 mg twice daily. ALLERGIES: PRADAXA, LASIX, PENICILLIN, AND COUMADIN. PERSONAL HISTORY: Drinks 2-4 beers daily. Does not abuse drugs or smoke. The patient usually ambulates with braces on his left lower extremity due to polio. If not, he will need crutches to ambulate. FAMILY HISTORY: Both parents of natural causes, mother was 70, father was 89. REVIEW OF SYSTEMS: CONSTITUTIONAL: Negative for weight loss or gain, ability to conduct usual activities. SKIN: Negative for rash, itching. EYES: Negative for double vision, pain. ENT/MOUTH: Negative for nose bleeding, neck stiffness, pain, tenderness. CARDIOVASCULAR: Negative for palpitations, dyspnea on exertion, orthopnea. RESPIRATORY: Negative for shortness of breath, wheezing, cough, hemoptysis, fever or night sweats. GASTROINTESTINAL: Negative for poor appetite, abdominal pain, heartburn, nausea, vomiting, constipation, or diarrhea. GENITOURINARY: Negative for urgency, frequency, dysuria, nocturia. MUSCULOSKELETAL: Negative for pain, swelling. NEUROLOGIC/PSYCHIATRIC: Negative for anxiety, depression. ALLERGY/IMMUNOLOGIC: Negative for skin rash, bleeding tendency. CODE STATUS: Full. POWER OF REGISTERED MEDICAL ASSISTANT: His son, Mr. Yarbrough. PHYSICAL EXAMINATION: GENERAL: The patient is a 69-year-old male, who is currently not in any acute distress. VITAL SIGNS: Blood pressure 136/64, pulse 80 per minute, respiratory rate 18 per minute, temperature 98.4 degrees Fahrenheit, saturating 99% on room air. NECK: Supple. There is elevated JVD. HEENT: Eyes, extraocular muscles are intact. Pupils, reacting to light. Oral cavity, mucous membranes are moist. No exudates or congestion. CARDIOVASCULAR: S1, S2 heard. Regular rhythm. RESPIRATORY: Air entry 1+ bilateral. Scattered rales in the infrascapular area. No rhonchi or wheezes. ABDOMEN: Soft. Bowel sounds heard. The patient has a chronic ventral hernia which is reducible. EXTREMITIES: There is 2+ peripheral edema in the right lower extremity and 1+ peripheral edema in the left lower extremity. Left lower extremity, there is gross wasting of muscles due to polio. CENTRAL NERVOUS SYSTEM: No new gross deficits noted. The patient has paralysis in the left lower extremity due to polio. He is alert, awake, and oriented well. PSYCHIATRIC: No obvious hallucinations or delusions. LABORATORY DATA: Chest x-ray done shows no acute lung process. Stool occult blood was positive. BNP 1079. Troponin I 0.01, albumin 3.9. Liver enzymes within normal limits. Serum glucose 133, sodium 123, chloride 87, serum bicarb 28, BUN 12, creatinine 0.8. PT/INR 17.4 and 1.4, PTT 37.2. White count of 6, H and H 5.9 and 19.8, platelet count is 225 with 60% neutrophils, 13% bands, 5% lymphocytes. MCV is 60.8. CLINICAL IMPRESSION AND PLAN: The patient will be admitted to telemetry for acute blood loss anemia with gastrointestinal bleed and the patient being on Eliquis for chronic atrial fibrillation. He will be given 2 units of packed cell transfusion with Zaroxolyn in between transfusions. H and H q.6 hourly will be obtained. We will obtain GI consultation with Dr. Simon Little who is air sampling and monitoring. The patient will be transfused as needed and will also be closely monitored for volume overload in view of elevated BNP and clinically having elevated jugular venous distention. He has known history of congestive heart failure and we will continue his Entresto as before along with Coreg. He will be closely monitored on telemetry. Job ID: [id number]
[2019-12-28 23:18] LABS: Troponin I 0.017 ng/mL (< 0.028)
[2019-12-29 00:32] LABS: Hemoglobin 6.5 g/dL (14.0-18.0)
[2019-12-29 06:53] LABS: Hemoglobin 7.4 g/dL (14.0-18.0)
[2019-12-29 07:08] LABS: Anion Gap 12 mmol/L (10-20); BUN (Urea Nitrogen) 10 mg/dL (8.4-25.7); Calc. Creatinine Clearance 118 mL/min (70-130); Calcium 8.9 mg/dL (7.8-10.44); Carbon Dioxide 24 mmol/L (23-31); Chloride 92 mmol/L (98-107); Estimated GFR-MDRD Greater than 90; Glucose 135 mg/dL (80-115); Potassium 3.4 mmol/L (3.5-5.1); Sodium 125 mmol/L (136-145)
[2019-12-29] MEDS: Metolazone 5 MG TAB PO SCH (08:06)
[2019-12-29] MEDS: Sacubitril 49 MG/Valsartan 51 MG TABLET PO SCH ×2 (08:07→20:02)
[2019-12-29] MEDS: Carvedilol 6.25 MG TAB PO SCH ×2 (08:07→20:02)
[2019-12-29] MEDS: Triamterene/Hydrochlorothiazide 37.5 mg/25 mg Tablet PO SCH (08:07)
[2019-12-29] MEDS: Rosuvastatin 5 MG TAB PO SCH (08:07)
[2019-12-29] MEDS: HumaLOG 300 UNITS/3 ML VIAL SC PRN ×2 (12:12→20:03)
--- NOTE | 2019-12-29 12:32 | CON ---
DATE OF CONSULTATION: 12/29/2019 CONSULTING PHYSICIAN: Dr. Castillo. REASON FOR CONSULT: Need for diuretics and Lasix allergy, edema and hyponatremia. REASON FOR ADMISSION: GI bleed. HISTORY OF PRESENT ILLNESS: This is a 69-year-old male with history of atrial fibrillation, hypertension, type 2 diabetes, CHF, came to the hospital with above complaints and was found to be hyponatremic. He is fluid overload, but is allergic to Lasix. He was tried on triamterene/hydrochlorothiazide plus metolazone. He had urine output and swelling is better. No fever or chills. He was also anemic and is being evaluated for gastrointestinal bleed. PAST MEDICAL HISTORY: Positive for atrial fibrillation, hypertension, type 2 diabetes, hyperlipidemia, CHF. PAST SURGICAL HISTORY: Cardiac cath, cardioversion. HOME MEDICATIONS: Reviewed. ALLERGIES: REVIEWED. NO SULFA ALLERGY. ALLERGIC TO PENICILLIN, LASIX, PRADAXA, AND COUMADIN. SOCIAL HISTORY: Drinks 2 to 4 beers, 12 to 16 ounce cans, and drinks a lot of Coke. No smoking. FAMILY HISTORY: No history of kidney disease. REVIEW OF SYSTEMS: CONSTITUTIONAL: Negative for weight loss or gain, ability to conduct usual activities. SKIN: Negative for rash, itching. EYES: Negative for double vision, pain. ENT/MOUTH: Negative for nose bleeding, neck stiffness, pain, tenderness. CARDIOVASCULAR: Negative for palpitations, dyspnea on exertion, orthopnea. RESPIRATORY: Negative for shortness of breath, wheezing, cough, hemoptysis, fever or night sweats. GASTROINTESTINAL: Negative for poor appetite, abdominal pain, heartburn, nausea, vomiting, constipation, or diarrhea. GENITOURINARY: Negative for urgency, frequency, dysuria, nocturia. MUSCULOSKELETAL: Negative for pain, swelling. NEUROLOGIC/PSYCHIATRIC: Negative for anxiety, depression. ALLERGY/IMMUNOLOGIC: Negative for skin rash, bleeding tendency. PHYSICAL EXAMINATION: GENERAL: This is a well-built male, in no apparent distress. VITAL SIGNS: Temperature 98, pulse 60, respiratory rate 18, blood pressure 132/63. HEENT: Atraumatic, normocephalic. Oral mucosa moist. NECK: Supple. CV: S1 and S2. Rate and rhythm regular. RESPIRATORY: Clear. GI: Abdomen is soft. MUSCULOSKELETAL: 1+ edema. DERMATOLOGIC: No skin rash. NEUROLOGIC: Alert and awake. PSYCHIATRIC: Mood and affect normal. LABORATORY DATA: Hemoglobin is 7.4 from 5.9. Sodium is 125, potassium 3.4, BUN 10, creatinine 0.7. ASSESSMENT AND PLAN: 1. Hyponatremia most likely from increased fluid intake. Advised limit fluid intake. Continue diuretics. 2. Edema. Continue diuretics. Consider Bumex. Seems like the patient does not have sulfa allergy and he says he is tolerating metolazone and hydrochlorothiazide and he has taken sulfa antibiotics in the past without any allergies. Okay with trying Bumex with close monitoring here at the hospital. Advised to use metolazone as needed and limit fluid and salt intake. 3. Hypokalemia. 4. History of hypertension. 5. Anemia. Follow up with GI. 6. We will continue close monitoring. Continue diuretics. Job ID: [id number]
--- NOTE | 2019-12-29 12:35 | PDOC.HOSPP ---
- Subjective Encounter Date: 12/29/19 Encounter Time: 10:45 Subjective: no further bleeding per rectum no nausea or abd pain has tolerated triamterene with hctz 2 doses so far without side effects no sob or chest pain - Objective Vital Signs & Weight: Vital Signs (12 hours) Temp Pulse Pulse Pulse Pulse Resp BP 12/29/19 11:10 98.1 F 60 18 12/29/19 10:32 71 60 131/64 12/29/19 07:03 98.8 F 60 18 12/29/19 03:41 97.6 F 61 18 12/29/19 01:27 98.3 F 60 16 BP BP BP Pulse Ox Pulse Ox Pulse Ox 12/29/19 11:10 122/58 L 99 12/29/19 10:32 124/60 99 100 12/29/19 07:03 132/63 98 12/29/19 03:41 134/64 98 12/29/19 01:27 134/67 Weight Weight 192 lb 14.4 oz I&O: 12/28/19 12/29/19 12/30/19 06:59 06:59 06:59 Intake Total 800 Output Total 1900 Balance -1100 Result Diagrams: 12/29/19 06:43 12/29/19 06:43 Additional Labs: Accuchecks 12/29/19 12/28/19 11:12 20:13 POC Glucose 209 H 172 H Hospitalist ROS - Medication Medications: Active Medications Generic Name Dose Route Start Last Admin Trade Name Freq PRN Reason Stop Dose Admin Carvedilol 6.25 mg 12/28/19 21:00 12/29/19 08:07 Coreg PO 6.25 mg BID NEVA Administration Insulin Human Lispro 0 units 12/28/19 19:07 12/29/19 12:12 Humalog SC 4 unit .MODERATE SLIDING SC PRN Administration Moderate Correctional Scale Metolazone 5 mg 12/29/19 09:00 12/29/19 08:06 Zaroxolyn PO 5 mg DAILY NEVA Administration Rosuvastatin Calcium 5 mg 12/29/19 09:00 12/29/19 08:07 Crestor PO 5 mg DAILY NEVA Administration Sacubitril/Valsartan 1 tab 12/28/19 21:00 12/29/19 08:07 Entresto 49 Mg-51 Mg Tablet PO 1 tab BID NEVA Administration Triamterene/HCTZ 1 tab 12/29/19 09:00 12/29/19 08:07 Maxzide-25 PO 1 tab DAILY NEVA Administration - Exam General Appearance: awake alert Eye: PERRL, anicteric sclera ENT: no oropharyngeal lesions, moist mucosa Neck: supple, no JVD Heart: RRR, no murmur Respiratory: no wheezes, no ronchi, rales Gastrointestinal: soft, non-tender, non-distended, normal bowel sounds Extremities: no cyanosis, 1+ LE edema Neurological: cranial nerve grossly intact, no new deficit Psychiatric: normal affect, A&O x 3 Hosp A/P (1) Acute blood loss anemia Code(s): D62 - ACUTE POSTHEMORRHAGIC ANEMIA Status: Acute (2) GI bleed Code(s): K92.2 - GASTROINTESTINAL HEMORRHAGE, UNSPECIFIED Status: Acute Qualifiers: GI bleed type/associated pathology: unspecified gastrointestinal hemorrhage type Qualified Code(s): K92.2 - Gastrointestinal hemorrhage, unspecified (3) Afib Code(s): I48.91 - UNSPECIFIED ATRIAL FIBRILLATION Status: Chronic Qualifiers: Atrial fibrillation type: paroxysmal Qualified Code(s): I48.0 - Paroxysmal atrial fibrillation (4) Acute exacerbation of CHF (congestive heart failure) Code(s): I50.9 - HEART FAILURE, UNSPECIFIED Status: Acute Qualifiers: Heart failure type: combined systolic and diastolic Qualified Code(s): I50.43 - Acute on chronic combined systolic (congestive) and diastolic ( congestive) heart failure (5) DM type 2 (diabetes mellitus, type 2) Status: Chronic Qualifiers: Diabetes mellitus group home insulin use: without termite control representative use (6) Dyslipidemia Code(s): E78.5 - HYPERLIPIDEMIA, UNSPECIFIED Status: Chronic (7) HTN (hypertension) Code(s): I10 - ESSENTIAL (PRIMARY) HYPERTENSION Status: Chronic Qualifiers: Hypertension type: essential hypertension Qualified Code(s): I10 - Essential (primary) hypertension (8) H/O post-polio syndrome Code(s): Z86.12 - PERSONAL HISTORY OF POLIOMYELITIS Status: Chronic (9) Alcohol abuse Code(s): F10.10 - ALCOHOL ABUSE, UNCOMPLICATED Status: Chronic - Plan recieved 2 u prbc, Hb around 7g await gi opinion will switch him from triamterene/hctz to bumex with or without metolazone to see if he tolerates chronic hyponatremia has diuresed well so far PT to mobilize as tolerated continue liq diet until GI clears him d/w son and patient at bedside
--- NOTE | 2019-12-29 13:28 | CON ---
DATE OF CONSULTATION: REASON FOR CONSULTATION: History of congestive heart failure. HISTORY OF PRESENT ILLNESS: Mr. Aguilar is a very pleasant 69-year-old gentleman with previous history of nonischemic cardiomyopathy. He was last seen and evaluated on November 23, 2019. He recently presented with anemia. Hemoglobin was 5.9. He denied chest pain, pressure, shortness of breath, or other associated symptoms. He did have some mild crackles noted in the bases bilaterally after infusion of blood overnight. GI consult is pending. HOME MEDICATIONS: Include, 1. Entresto / one p.o. b.i.d. 2. Eliquis 5 mg b.i.d. 3. Metolazone. 4. Rosuvastatin. 5. Carvedilol. 6. Janumet. PAST MEDICAL HISTORY: Diabetes mellitus, hyperlipidemia, nonischemic cardiomyopathy, umbilical hernia, peptic ulcer disease, acid reflux, hypertension, chronic atrial fibrillation, hernia repair, tonsillectomy. FAMILY HISTORY: Negative for CAD. SOCIAL HISTORY: No current tobacco or alcohol use. ALLERGIES: PENICILLIN AND LASIX. REVIEW OF SYSTEMS: A 10-point review of systems is reviewed and as above, otherwise negative. PHYSICAL EXAMINATION: GENERAL: Patient is a pleasant gentleman, who is in no acute distress. The patient appears their stated age. VITAL SIGNS: Blood pressure 122/58, pulse 60, temperature 98.1. NEUROLOGIC: The patient is alert and oriented x3 with no focal neurologic deficits. HEENT: Sclerae without icterus. Mouth has moist mucous membranes with normal pallor. NECK: No JVD. Carotid upstroke brisk. No bruits bilaterally. LUNGS: Clear to auscultation with unlabored respirations. BACK: No scoliosis or kyphosis. CARDIAC: Regular rate and rhythm with normal S1 and S2. No S3 or S4 noted. No significant rubs, murmurs, thrills, or gallops noted throughout the precordium. PMI is not displaced. There is no parasternal heave. ABDOMEN: Soft, nontender, nondistended. No peritoneal signs present. No hepatosplenomegaly. No abnormal striae. EXTREMITIES: 2+ femoral and 2+ dorsalis pedis pulses. No cyanosis, clubbing, or edema. SKIN: No gross abnormalities. PERTINENT LABORATORY DATA: Hemoglobin 7.4. Initial hemoglobin 5.9. Troponin negative. BNP of 1079. IMPRESSION: 1. Anemia. 2. Nonischemic cardiomyopathy. 3. Elevated BNP. RECOMMENDATIONS: Mr. Aguilar appears to be clinically stable. He does have mild crackles noted at bases bilaterally. I would agree with diuretic therapy. Would otherwise place him on his outpatient medications as blood pressure and heart rate tolerated. He is currently on carvedilol in addition to Entresto and rosuvastatin. Otherwise, I have no further recommendations. Job ID: [id number]
[2019-12-29 14:07] LABS: Hemoglobin 7.7 g/dL (14.0-18.0)
--- NOTE | 2019-12-29 17:49 | CON ---
DATE OF CONSULTATION: 12/29/2019 REASON FOR CONSULTATION: Hematochezia/melena, iron-deficiency anemia. CONSULTING PROVIDER: Jeana Castillo MD HISTORY OF PRESENT ILLNESS: The patient is a 69-year-old male with past medical history of atrial fibrillation, on anticoagulation; hypertension; diabetes; hyperlipidemia; congestive heart failure with AICD placement; GERD; coronary artery disease; and polio with left lower extremity paralysis, presenting with complaints of hematochezia and anemia. Per the patient's chart review, both in the outpatient clinic and during this hospitalization, the patient states that he had been having hematochezia that has been present for the last 3 months. The hematochezia was characterized as maroon and dark/black-colored stools, they would occur approximately 2 times per week and were associated with increased diarrhea with those particular bowel movements. However, in between these episodes of bloody type stools, he would have more normal solid type stools that were brown in coloration. As part of a wellness workup from his PCP, he had a CBC performed as an outpatient, which showed a hemoglobin of approximately 8.1, as well as a decreased MCV and elevated RDW, concerning for iron-deficiency anemia. He was subsequently referred to Gastroenterology, for which he was seen by Dr. Samayoa on 12/22/2019, with plans to proceed with both EGD and colonoscopy as part of evaluation of a probable iron-deficiency anemia. However, the patient was followed up by his PCP earlier this /Friday, and was informed on Friday that his hemoglobin and hematocrit had decreased even further when compared to his prior CBC and urged an ER evaluation for transfusion of blood. While in the ER, he was noted to have a hemoglobin of 5.9 and was ultimately admitted to the hospital for further evaluation of a probable GI bleed. At the current time, he states that he is doing well with no acute events or problems overnight. He currently denies any nausea, vomiting, fevers, chills, hematemesis, dysphagia, odynophagia, constipation, or weight loss. He did receive approximately 2 units of PRBCs last night and tolerated them well with no transfusion-related reactions. He has also been seen by both Cardiology and Nephrology Services thus far for his cardiac disease and hyponatremia respectively. REVIEW OF SYSTEMS: A 10-category review of systems was obtained with all responses negative except for the pertinent positives as listed in HPI. PAST MEDICAL HISTORY: As per HPI. PAST SURGICAL HISTORY: 1. Cardiac catheterization. 2. Pacemaker placement with AICD. 3. Cardioversion secondary to atrial fibrillation. FAMILY HISTORY: Denies any GI malignancies. SOCIAL HISTORY: He drinks approximately 2 to 4 beers daily, but denies any tobacco or illicit drug use. OUTPATIENT MEDICATIONS: Reviewed. ALLERGIES: PRADAXA, LASIX, PENICILLIN, AND COUMADIN. PHYSICAL EXAMINATION: VITAL SIGNS: Temperature 98, pulse 60, blood pressure 131/64, respiratory rate 18, and saturating 100% on room air. GENERAL: The patient was lying in bed, in no acute distress. Alert and oriented x4. HEENT: Normocephalic and atraumatic. Neck is supple. No JVD or scleral icterus noted. CARDIOVASCULAR: Regular rate and rhythm with no discernable murmurs, gallops, or rubs. RESPIRATORY: Clear to auscultation bilaterally with no discernable wheezes or rales. ABDOMEN: Normoactive bowel sounds. Soft, nontender, and nondistended. A large ventral hernia was noted in the periumbilical region, that was not tender to palpation and easy to reduce. EXTREMITIES: No cyanosis, clubbing, or edema. LABORATORY DATA: CBC with a white blood cell count of 6, hemoglobin 7.4, hematocrit 23.8, and platelets 225. INR 1.4. Chemistry with a sodium of 125, potassium 3.4, chloride 92, CO2 of 24, BUN 10, creatinine 0.73, and glucose 135. AST 13, ALT 10, alkaline phosphatase 54, and total bilirubin 0.8. BNP 1079. IMAGING DATA: Chest x-ray performed on 12/28/2019 showed mild cardiomegaly with dual-lead pacemaker unchanged in terms of position. There was no evidence of vascular congestion or edema and no significant effusion, ultimately read as no acute cardiopulmonary process. ASSESSMENT AND PLAN: The patient is a 69-year-old male with a past medical history of atrial fibrillation, on anticoagulation (Eliquis); hypertension; diabetes; hyperlipidemia; congestive heart failure with automatic implantable cardioverter-defibrillator placement secondary to low ejection fraction in the 20%, gastroesophageal reflux disease, coronary artery disease, and polio with left lower extremity paralysis, presenting with iron-deficiency anemia and hematochezia. Iron deficiency anemia/hematochezia: The patient is presenting with a 3-month history of intermittent hematochezia, characterized as maroonish and dark/black colored stools, that would occur around twice weekly. On evaluation of his CBC a few weeks ago by his primary physician, he was noted to have a significantly decreased hemoglobin of 8.1 as well as indices consistent with iron-deficiency anemia. He was ultimately evaluated by the GI service (Dr. Samayoa) on 12/22/2019 for this iron-deficiency anemia with plans to undergo both esophagogastroduodenoscopy and colonoscopy at [facility] secondary to the defibrillator placement and need for closer monitoring both during and after the procedure. However, repeat CBC performed during this week showed continued decrease in his hemoglobin and hematocrit, which was echoed on the CBC obtained on admission to the ER during this hospitalization. He was subsequently given 2 units of packed red blood cells and has responded appropriately to the transfusion thus far. He has not had any further episodes of hematochezia during the course of this admission nor does he describe any other symptoms concerning for bleeding or bleeding source. At this time, the origin of his hematochezia is unknown, but is potentially made worse with the concurrent administration of Eliquis. Differential could include esophagitis, gastritis, duodenitis, peptic ulcer disease, arteriovenous malformation, Dieulafoy lesion, inflammatory bowel disease (less likely), hemorrhoidal bleeding (less likely), and/or gastrointestinal malignancy. RECOMMENDATIONS: 1. Would continue to trend the patient's hemoglobin and hematocrit and transfuse as necessary to maintain the hemoglobin and hematocrit of 7/21. 2. Continue to monitor clinically for signs of active GI bleeding. 3. Would continue to hold any anticoagulation in light of active GI bleeding. 4. Given the patient's hyponatremia and elevated BNP secondary to hypervolemia, I would recommend optimization of his cardiac status over the next 24 hours prior to endoscopic evaluation. 5. We will place the patient on a clear liquid diet tomorrow in anticipation of both EGD and colonoscopy on Friday (after cardiac optimization).e will continue to follow. Please call with any questions. Job ID: [id number]
[2019-12-30 05:34] LABS: Carbon Dioxide 22 mmol/L (23-31); Globulin 2.6 g/dL (2.4-3.5)
[2019-12-30 05:46] LABS: Band 4 % (5-11); Eosinophils 11 % (0-10); Hemoglobin 7.5 g/dL (14.0-18.0); Hypochromia MODERATE=16-30 cells (100X) (0-5/hpf); Lymphocytes 6 % (21-51); MDiff Complete? YES; Mean Corpuscular HGB CONC 29.6 g/dL (32.0-36.0); Mean Corpuscular Hemoglobin 19.8 pg (27.0-31.0); Mean Corpuscular Volume 66.9 fL (78.0-98.0); Mean Platelet Volume 12.5 fL (7.4-10.4); Microcytosis SLIGHT = 6-15 cells (100X) (0-5/hpf); Monocytes 15 % (0-10); Neutrophil 63 % (42-75); Platelet Count 267 thou/uL (130-400); Platelet Morphology Comment Appears Adequate; Poikilocytosis SLIGHT = 6-15 cells (100X) (0-5/hpf); Red Blood Cell (RBC) Count 3.77 mill/uL (4.70-6.10); Schistocytes SLIGHT = 2-5 cells (100X) (0-1/hpf); White Blood Cell (WBC) Count 5.7 thou/uL (4.8-10.8)
[2019-12-30 06:31] LABS: ALT (SGPT) 9 U/L (8-55); AST (SGOT) 17 U/L (5-34); Albumin 3.9 g/dL (3.4-4.8); Alkaline Phosphatase 53 U/L (40-110); Anion Gap 17 mmol/L (10-20); BUN (Urea Nitrogen) 8 mg/dL (8.4-25.7); Bilirubin, Total 1.4 mg/dL (0.2-1.2); Calc. Creatinine Clearance 119 mL/min (70-130); Calcium 8.7 mg/dL (7.8-10.44); Chloride 93 mmol/L (98-107); Estimated GFR-MDRD Greater than 90; Glucose 118 mg/dL (80-115); Potassium 3.4 mmol/L (3.5-5.1); Protein, Total 6.5 g/dL (5.8-8.1); Sodium 128 mmol/L (136-145)
[2019-12-30] MEDS: Carvedilol 6.25 MG TAB PO SCH ×2 (08:43→21:57)
[2019-12-30] MEDS: Rosuvastatin 5 MG TAB PO SCH (08:44)
[2019-12-30] MEDS: Metolazone 5 MG TAB PO SCH (08:44)
[2019-12-30] MEDS: Sacubitril 49 MG/Valsartan 51 MG TABLET PO SCH ×2 (08:44→21:57)
[2019-12-30] MEDS: Triamterene/Hydrochlorothiazide 37.5 mg/25 mg Tablet PO SCH (08:44)
--- NOTE | 2019-12-30 09:04 | PRG ---
DATE OF SERVICE: 12/30/2019 SUBJECTIVE: Mr. Aguilar is feeling well. He has 2 units of RBC transfusion and hemoglobin came up from 5.9 to 7.5, stable this morning. He is not having any shortness of breath or chest pain. He started a clear liquid diet this morning. There is no abdominal pain. No other complaints. OBJECTIVE: VITAL SIGNS: Temperature 97.7, pulse 60, blood pressure 143/62, and 99% oxygen saturation on room air. GENERAL: Pale, sitting up in bed comfortably, in no distress. HEART: Regular rate and rhythm. LUNGS: Clear to auscultation bilaterally. ABDOMEN: Soft, nontender to palpation. EXTREMITIES: No peripheral edema. LABORATORY STUDIES: WBC 5.7, hemoglobin 7.5, platelets 267. INR was 1.4 on admission. Note, Eliquis has been held for a couple of days now. Sodium 128, potassium 3.4, BUN 8, creatinine 0.75, glucose 144, total bilirubin 1.4. Alkaline phosphatase 53, AST 17, ALT 9. TSH 1.76. ASSESSMENT AND PLAN: 1. Iron-deficiency anemia. 2. Hematochezia, intermittent for the past 3 months. The patient is feeling well after initial transfusion. Further transfusion plans per Primary Service. We are going to stick with the plan to proceed with EGD and colonoscopy tomorrow for investigation of the anemia and hematochezia. Administer bowel preparation this evening. Please call if there are any issues. 3. Further recommendations following endoscopy tomorrow. Continue to hold anticoagulation in the meantime. Job ID: [id number]
[2019-12-30] MEDS: HumaLOG 300 UNITS/3 ML VIAL SC PRN (11:56)
--- NOTE | 2019-12-30 12:01 | PDOC.HOSPP ---
- Subjective Encounter Date: 12/30/19 Encounter Time: 10:30 Subjective: no sob or further rectal bleed says he is amb in room no abd pain or nausea - Objective Vital Signs & Weight: Vital Signs (12 hours) Temp Pulse Resp BP Pulse Ox 12/30/19 07:33 97.7 F 60 14 143/62 H 99 12/30/19 04:05 97.7 F 60 16 131/62 97 Weight Weight 199 lb 14.4 oz I&O: 12/29/19 12/30/19 12/31/19 06:59 06:59 06:59 Intake Total 800 Output Total 1900 Balance -1100 Result Diagrams: 12/30/19 04:01 12/30/19 04:01 Additional Labs: Accuchecks 12/30/19 12/29/19 12/29/19 05:20 19:47 05:49 POC Glucose 144 H 247 H 159 H Hospitalist ROS - Medication Medications: Active Medications Generic Name Dose Route Start Last Admin Trade Name Freq PRN Reason Stop Dose Admin Carvedilol 6.25 mg 12/28/19 21:00 12/30/19 08:43 Coreg PO 6.25 mg BID NEVA Administration Insulin Human Lispro 0 units 12/28/19 19:07 12/30/19 11:56 Humalog SC 4 unit .MODERATE SLIDING SC PRN Administration Moderate Correctional Scale Metolazone 5 mg 12/29/19 09:00 12/30/19 08:44 Zaroxolyn PO 5 mg DAILY NEVA Administration Rosuvastatin Calcium 5 mg 12/29/19 09:00 12/30/19 08:44 Crestor PO 5 mg DAILY NEVA Administration Sacubitril/Valsartan 1 tab 12/28/19 21:00 12/30/19 08:44 Entresto 49 Mg-51 Mg Tablet PO 1 tab BID NEVA Administration Triamterene/HCTZ 1 tab 12/29/19 09:00 12/30/19 08:44 Maxzide-25 PO 1 tab DAILY NEVA Administration - Exam General Appearance: awake alert Eye: PERRL, anicteric sclera ENT: no oropharyngeal lesions, moist mucosa Neck: supple, no JVD Heart: RRR, no murmur Respiratory: no wheezes, no rales Gastrointestinal: soft, non-tender, non-distended, normal bowel sounds Extremities: no cyanosis, no edema Neurological: cranial nerve grossly intact, no focal deficits Psychiatric: A&O x 3 Hosp A/P (1) Acute blood loss anemia Code(s): D62 - ACUTE POSTHEMORRHAGIC ANEMIA Status: Acute (2) GI bleed Code(s): K92.2 - GASTROINTESTINAL HEMORRHAGE, UNSPECIFIED Status: Acute Qualifiers: GI bleed type/associated pathology: unspecified gastrointestinal hemorrhage type Qualified Code(s): K92.2 - Gastrointestinal hemorrhage, unspecified (3) Afib Code(s): I48.91 - UNSPECIFIED ATRIAL FIBRILLATION Status: Chronic Qualifiers: Atrial fibrillation type: paroxysmal Qualified Code(s): I48.0 - Paroxysmal atrial fibrillation (4) Acute exacerbation of CHF (congestive heart failure) Code(s): I50.9 - HEART FAILURE, UNSPECIFIED Status: Acute Qualifiers: Heart failure type: combined systolic and diastolic Qualified Code(s): I50.43 - Acute on chronic combined systolic (congestive) and diastolic ( congestive) heart failure (5) DM type 2 (diabetes mellitus, type 2) Status: Chronic Qualifiers: Diabetes mellitus shelter insulin use: without shelter use (6) Dyslipidemia Code(s): E78.5 - HYPERLIPIDEMIA, UNSPECIFIED Status: Chronic (7) HTN (hypertension) Code(s): I10 - ESSENTIAL (PRIMARY) HYPERTENSION Status: Chronic Qualifiers: Hypertension type: essential hypertension Qualified Code(s): I10 - Essential (primary) hypertension (8) H/O post-polio syndrome Code(s): Z86.12 - PERSONAL HISTORY OF POLIOMYELITIS Status: Chronic (9) Alcohol abuse Code(s): F10.10 - ALCOHOL ABUSE, UNCOMPLICATED Status: Chronic (10) Hyponatremia Code(s): E87.1 - HYPO-OSMOLALITY AND HYPONATREMIA Status: Chronic - Plan recieved 2 u prbc 12/29/2019, Hb around 7g and stable for egd/colonoscopy in am is on triamterene/hctz and metolazone, he is tolerating well, edema has resolved from his legs chronic hyponatremia has diuresed well so far PT to mobilize as tolerated continue liq diet until GI clears him d/w patient at bedside
--- NOTE | 2019-12-30 13:03 | PRG ---
DATE OF SERVICE: 12/30/2019 SUBJECTIVE: Patient was seen and examined at bedside and overnight events noted. Patient denies any shortness of breath or chest pain or palpitation. No history of nausea or vomiting or diarrhea or fever or chills or cramps. OBJECTIVE: GENERAL: This is a well-built male, in no apparent distress. VITAL SIGNS: Temperature 97.9. Heart rate 61. Respiratory rate . Blood pressure 133/61. HEENT: Atraumatic, normocephalic. Oral mucosa is moist NECK: Supple. CARDIOVASCULAR: S1, S2 heard. Rate and rhythm regular. RESPIRATORY: Clear to auscultation. GASTROINTESTINAL: Abdomen is soft. MUSCULOSKELETAL: No tenderness. No edema. DERMATOLOGIC: No skin rash. NEUROLOGIC: Alert and awake and oriented X3. No focal neurologic deficits. Moving all the extremities. PSYCHIATRIC: Mood and affect normal. LABORATORY DATA: Potassium is 3.4, BUN is 8, creatinine is 0.7. ASSESSMENT AND PLAN: 1. Hyponatremia, better, limit fluid intake. 2. Edema, better with triamterene and hydrochlorothiazide. 3. Hypokalemia. 4. Hypertension. 5. Anemia. Labs are stable. Job ID: [id number]
[2019-12-30] MEDS ORDERED: GoLYTELY 4,000 ml Bottle PO SCH (20:00)
[2019-12-31] MEDS: Sacubitril 49 MG/Valsartan 51 MG TABLET PO SCH ×2 (08:06→20:41)
[2019-12-31] MEDS: Carvedilol 6.25 MG TAB PO SCH ×2 (08:06→20:41)
[2019-12-31 08:30] LABS: Hemoglobin 8.2 g/dL (14.0-18.0); Mean Corpuscular HGB CONC 30.5 g/dL (32.0-36.0); Mean Corpuscular Hemoglobin 20.6 pg (27.0-31.0); Mean Corpuscular Volume 67.6 fL (78.0-98.0); Platelet Count 262 thou/uL (130-400); RBC Distribution Width 23.9 % (11.5-14.5); Red Blood Cell (RBC) Count 3.97 mill/uL (4.70-6.10); White Blood Cell (WBC) Count 5.4 thou/uL (4.8-10.8)
[2019-12-31 08:33] LABS: Anion Gap 10 mmol/L (10-20); BUN (Urea Nitrogen) 6 mg/dL (8.4-25.7); Calc. Creatinine Clearance 120 mL/min (70-130); Calcium 8.7 mg/dL (7.8-10.44); Carbon Dioxide 29 mmol/L (23-31); Chloride 93 mmol/L (98-107); Estimated GFR-MDRD Greater than 90; Glucose 157 mg/dL (80-115); Potassium 3.5 mmol/L (3.5-5.1); Sodium 128 mmol/L (136-145)
[2019-12-31] MEDS ORDERED: Iopamidol-370 76% 500 ML 1 ML ONE (09:32)
[2019-12-31] MEDS ORDERED: Iopamidol 370 76% 50 ML VIAL FS ONE (09:32)
[2019-12-31] MEDS ORDERED: PROPOFOL 200 MG/20 ML VIAL ONE (10:07)
[2019-12-31] MEDS ORDERED: PHENYLEPHRINE-NS 100 MCG/ML 10 ML SYRINGE ONE (10:07)
[2019-12-31 11:33] LABS: Band 3 % (5-11); Eosinophils 3 % (0-10); Hypochromia MODERATE=16-30 cells (100X) (0-5/hpf); Lymphocytes 7 % (21-51); MDiff Complete? YES; Microcytosis MODERATE=15-30 cells (100X) (0-5/hpf); Monocytes 11 % (0-10); Myelocyte 1 % (0-0); Neutrophil 72 % (42-75); Ovalocytes SLIGHT = 2-5 cells (100X) (0-1/hpf); Platelet Morphology Comment Appears Adequate; Polychromasia SLIGHT = 2-3 cells (100X) (0-2/hpf)
--- NOTE | 2019-12-31 11:42 | PDOC.HOSPP ---
- Subjective Encounter Date: 12/31/19 Encounter Time: 11:35 Subjective: no sob or chest pain feels better - Objective Vital Signs & Weight: Vital Signs (12 hours) Temp Pulse Resp BP Pulse Ox 12/31/19 07:45 97.6 F 64 14 120/61 100 12/31/19 03:20 98.0 F 75 18 132/59 L 100 12/30/19 23:45 60 140/63 Weight Weight 195 lb 6.4 oz I&O: 12/30/19 12/31/19 01/01/20 06:59 06:59 06:59 Intake Total 4200 Output Total 2250 Balance 1950 Result Diagrams: 01/01/20 04:44 01/01/20 04:44 Additional Labs: Accuchecks 12/31/19 12/30/19 12/30/19 06:39 20:55 17:08 POC Glucose 173 H 249 H 133 H 12/30/19 11:01 POC Glucose 231 H Hospitalist ROS - Medication Medications: Active Medications Generic Name Dose Route Start Last Admin Trade Name Freq PRN Reason Stop Dose Admin Carvedilol 6.25 mg 12/28/19 21:00 12/31/19 08:06 Coreg PO 6.25 mg BID NEVA Administration Insulin Human Lispro 0 units 12/28/19 19:07 12/30/19 11:56 Humalog SC 4 unit .MODERATE SLIDING SC PRN Administration Moderate Correctional Scale Rosuvastatin Calcium 5 mg 12/29/19 09:00 12/30/19 08:44 Crestor PO 5 mg DAILY NEVA Administration Sacubitril/Valsartan 1 tab 12/28/19 21:00 12/31/19 08:06 Entresto 49 Mg-51 Mg Tablet PO 1 tab BID NEVA Administration Triamterene/HCTZ 1 tab 12/29/19 09:00 12/30/19 08:44 Maxzide-25 PO 1 tab DAILY NEVA Administration - Exam General Appearance: awake alert Eye: PERRL, anicteric sclera ENT: no oropharyngeal lesions, moist mucosa Neck: supple, no JVD Heart: RRR, no murmur Respiratory: no wheezes, no rales Gastrointestinal: soft, non-tender, non-distended, normal bowel sounds Extremities: no cyanosis, no edema Neurological: cranial nerve grossly intact, no focal deficits Hosp A/P (1) Acute blood loss anemia Code(s): D62 - ACUTE POSTHEMORRHAGIC ANEMIA Status: Acute (2) GI bleed Code(s): K92.2 - GASTROINTESTINAL HEMORRHAGE, UNSPECIFIED Status: Acute Qualifiers: GI bleed type/associated pathology: unspecified gastrointestinal hemorrhage type Qualified Code(s): K92.2 - Gastrointestinal hemorrhage, unspecified (3) Afib Code(s): I48.91 - UNSPECIFIED ATRIAL FIBRILLATION Status: Chronic Qualifiers: Atrial fibrillation type: paroxysmal Qualified Code(s): I48.0 - Paroxysmal atrial fibrillation (4) Acute exacerbation of CHF (congestive heart failure) Code(s): I50.9 - HEART FAILURE, UNSPECIFIED Status: Acute Qualifiers: Heart failure type: combined systolic and diastolic Qualified Code(s): I50.43 - Acute on chronic combined systolic (congestive) and diastolic ( congestive) heart failure (5) DM type 2 (diabetes mellitus, type 2) Status: Chronic Qualifiers: Diabetes mellitus termite exterminator helper insulin use: without termite exterminator helper use (6) Dyslipidemia Code(s): E78.5 - HYPERLIPIDEMIA, UNSPECIFIED Status: Chronic (7) HTN (hypertension) Code(s): I10 - ESSENTIAL (PRIMARY) HYPERTENSION Status: Chronic Qualifiers: Hypertension type: essential hypertension Qualified Code(s): I10 - Essential (primary) hypertension (8) H/O post-polio syndrome Code(s): Z86.12 - PERSONAL HISTORY OF POLIOMYELITIS Status: Chronic (9) Alcohol abuse Code(s): F10.10 - ALCOHOL ABUSE, UNCOMPLICATED Status: Chronic (10) Hyponatremia Code(s): E87.1 - HYPO-OSMOLALITY AND HYPONATREMIA Status: Chronic - Plan recieved 2 u prbc 12/29/2019, Hb around 7-8g and stable egd/colonoscopy done this am, gen surg consultation, CEA levels, has rectal mass for surgery is on triamterene/hctz, he is tolerating well, edema has resolved from his legs chronic hyponatremia has diuresed well so far PT to mobilize as tolerated
--- NOTE | 2019-12-31 11:54 | OP ---
DATE OF PROCEDURE: 12/31/2019 ASSESSOR SURGEON: None. PROCEDURES PERFORMED: 1. Esophagogastroduodenoscopy with biopsies. 2. Colonoscopy with biopsies and tattoo placement. INDICATIONS: 1. Iron deficiency anemia. 2. Hematochezia. MEDICATIONS: See Anesthesia record. FINDINGS: After discussion of the risks, benefits, and alternatives of the procedure, informed consent was obtained and witnessed. Pre-endoscopic cardiopulmonary examination was satisfactory. Time-out was performed before sedation was achieved. Sedation was achieved with Anesthesia assistance in the Endoscopy Unit. A Pentax adult upper endoscope was placed into the oropharynx and passed through the cricopharyngeus under direct visualization. The esophageal mucosa appeared normal throughout with a normal-appearing Z-line. The endoscope was advanced through into the stomach. Forward and retroflexed views of the entire gastric mucosa were obtained. There was a serpiginous ulceration with overlying eschar involving the posterior wall of the gastric body. There was some mild scattered nonerosive gastritis throughout the rest of the stomach. There was no active bleeding. Biopsies were obtained from the gastric antrum and body to rule out H pylori infection. The endoscope was advanced beyond the pylorus and into the first and second portions of the duodenum, which appeared normal. The upper endoscope was completely withdrawn and the patient was repositioned. Digital rectal exam was performed, which showed some external hemorrhoidal skin tags. A Pentax adult colonoscope was inserted into the anus and passed forward in the usual fashion. The colon was significantly tortuous and floppy. We used manual pressure and loop straightening and reduction methods to try to advance the scope to the cecum. Unfortunately, I was not able to visualize the cecal base, though I was able to visualize the ascending colon as well as the distal side of the ileocecal valve, but the appendiceal orifice was not visualized. The quality of the prep was fair with a large amount of liquid and semi-liquid stool throughout the colon, but this was adequately suctioned. There was some scattered diverticulosis throughout the colon. In the rectosigmoid colon from 15 to 20 cm from the anal verge, there was a mass, which does appear likely malignant. It involves about one-half of the circumference of the colon and about one-half of the volume of the lumen in that area. It was nonobstructing. It was friable, but there was no active bleeding. Multiple biopsies were obtained from the mass for histology. We then proceeded with tattoo placement. I submucosally injected 4 mL of tattoo ink just proximally and just distally to the mass. Retroflexion in the rectum demonstrated internal hemorrhoids. The colonoscope was completely withdrawn and the patient allowed to recover. The patient tolerated the procedure well. There were no immediate postprocedure complications. IMPRESSION: 1. Serpiginous shallow ulceration in the posterior gastric body, biopsied. 2. Otherwise, normal esophagogastroduodenoscopy. 3. 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 This involves one-half of the lumen and circumference of the colon in this area, nonobstructing, biopsied and tattooed proximally and distally to the lesion. 4. Scattered diverticulosis. 5. Internal hemorrhoids. 6. Inability to visualize the cecal base including the appendiceal orifice, but adequate examination to the level of the ascending colon. RECOMMENDATIONS: 1. Follow up biopsy results on the rectosigmoid mass and gastric biopsies. 2. CT of the abdomen and pelvis with IV contrast, to stage and hopefully rule out metastatic disease. 3. We will obtain surgical consultation. 4. We will get a CEA level. 5. Clear liquid diet today, pending surgical evaluation. 6. Daily PPI. GI will continue to follow along. Please call anytime with questions or concerns. Job ID: [id number]
[2019-12-31] MEDS: Triamterene/Hydrochlorothiazide 37.5 mg/25 mg Tablet PO SCH (11:58)
[2019-12-31] MEDS: Rosuvastatin 5 MG TAB PO SCH (11:59)
[2019-12-31] MEDS ORDERED: Pantoprazole 40 MG VIAL IVP SCH (12:15)
--- NOTE | 2019-12-31 12:28 | PRG ---
DATE OF SERVICE: 12/31/2019 SUBJECTIVE: Patient was seen and examined at bedside and overnight events noted. Patient denies any shortness of breath or chest pain or palpitation. No history of nausea or vomiting or diarrhea or fever or chills or cramps. OBJECTIVE: General: This is a well-built male, in no apparent distress. Vital Signs: Temperature 97.6. Heart Rate 64. Respiratory rate 14. Blood pressure 120/61. HEENT: Atraumatic, normocephalic. Oral mucosa is moist. Neck: Supple. Cardiovascular: S1, S2 heard. Rate and rhythm regular. Respiratory: Clear to auscultation. Gastrointestinal: Abdomen is soft. Musculoskeletal: No tenderness. No edema. Dermatologic: No skin rash. Neurologic: Alert and awake and oriented x3. No focal neurologic deficits. Moving all the extremities. Psychiatric: Mood and affect normal. LABORATORY DATA: Sodium 128, BUN 6, creatinine 0.7. ASSESSMENT AND PLAN: 1. Hyponatremia. Sodium level is stable. Continue on fluid restriction. 2. Edema seems to be better and is tolerating triamterene better. 3. The patient does not seem to have sulfa allergy. He only allergic to Lasix. Okay to have Bumex too if needed. 4. Hypokalemia, stable. 5. Hypertension. 6. Anemia. 7. Metolazone stopped as needed. Continue triamterene with hydrochlorothiazide with limited fluid intake and sodium intake. Will follow. Job ID: [id number]
--- NOTE | 2019-12-31 14:45 | CT ---
EXAM: CT ABDOMEN AND PELVIS HISTORY: Rectosigmoid mass. Eval for metastases. Staging study. COMPARISON: None. Procedure: Multiple contiguous axial images were obtained and a CT of the abdomen and pelvis with IV contrast. C oronal reformats were performed. FINDINGS: Lower Chest: within normal limits. Vessels: Normal caliber aorta. No periaortic fat stranding. Heart: Cardiomegaly. No significant pericardial fluid Abdomen: Portal vein:Patent Gallbladder: No calcified gallstones. Normal caliber wall. Liver: Heterogeneous attenuation suggesting areas of hepatic steatosis and hepatic sparing. No obviou s enhancing masses within the liver. Pancreas: within normal limits. Spleen: within normal limits. Adrenals: within normal limits. Kidneys: Symmetric enhancement. No obstructive uropathy. Hypodensity in the upper pole of the right k idney is too small to characterize but is statistically favored to be a cyst, measuring 0.9 x 1.0 cm Peritoneum: No ascites or free air, no fluid collection. Bowel: No evidence of bowel obstruction. Ileocecal junction is unremarkable. Normal caliber appendix. Scattered fecal material in a nondistended, nondilated colon. There is circumferential mucosal thickening involving the distal sigmoid colon and rectum. Additionally, there is right-sided mucosal hyperemia/hyperdensity/enhancement in the level of the mid sigmoid colon. There is no evidence of associated adjacent mesenteric lymphadenopathy. Mesentery and Retroperitoneum: No enlarged mesenteric or retroperitoneal lymph nodes. Nonenlarged per iaortic and aortocaval lymph nodes Abdominal Wall: Ventral abdominal wall hernia containing a mesenteric sac measuring 10.0 x 4.4 cm. Th e hernia defect is 2.3 cm. Pelvis: Reproductive Organs: Reproductive organs are unremarkable. Pelvis: No mass, lymphadenopathy, free air or free fluid. Bladder: within normal limits. Bones: No acute abnormality. Additional findings: There appears to be fluid in the left hip joint. There is atrophy of the left il iopsoas muscle and left gluteal muscles. Correlate clinically. IMPRESSION: 1. Malignancy involving the sigmoid colon and rectum. 2. No evidence of distant metastases. No evidence of lymphadenopathy in the adjacent mesentery. No ev idence of hepatic metastases.
--- NOTE | 2019-12-31 15:48 | CON ---
DATE OF CONSULTATION: CHIEF COMPLAINT: Blood loss anemia with rectal mass. HISTORY OF PRESENT ILLNESS: This is a 69-year-old male, who reports a 3-month history of bright red blood per rectum. On recent blood count, he was found to be anemic. He was referred for endoscopy. Blood count was repeated and was down from 8 to 6. Sent to the emergency room. There, it was found to be 6.2, was given 2 units of blood. Admitted to the hospital. He has no family history of colon cancer. His last colonoscopy was in 1991. He denies any pain. He says his bowels are working, but they have been loose. He attributed the blood loss to a diuretic metolazone that he takes. PAST MEDICAL HISTORY: Obesity, hypertension, congestive heart failure, atrial fibrillation, diabetes mellitus, and history of polio at age 2. MEDICATIONS: Include; 1. Entresto. 2. Doxycycline. 3. Coreg. 4. Metolazone. 5. Rosuvastatin. 6. Janumet. 7. Eliquis. ALLERGIES: TO PRADAXA, LASIX, PENICILLIN, AND COUMADIN. SOCIAL HISTORY: He is . No tobacco. Drinks 2 to 3 beers a day. He is a present at [employer]. FAMILY HISTORY: Brain cancer. PHYSICAL EXAMINATION: VITAL SIGNS: Temperature 96.8, pulse 66, and blood pressure 161/67. GENERAL: He is awake, alert, in no apparent distress. HEENT: Unremarkable. LUNGS: Clear. HEART: Regular rate and rhythm. ABDOMEN: Very distended. He has epigastric hernia. He said that apparently he had a hernia repair in 1993 there by . He is morbidly obese. EXTREMITIES: He has some deformity from polio. LABORATORY DATA: His white count is 5.4, H and H of 8.2 and 26, and platelet count of 262. Electrolytes are fine. His PT is 17, PTT is 37, done on the 9. He had a colonoscopy done today that shows a mass between 15 to 20 cm, that does appear to be malignant, involves about a half of the circumference of the colon. It was tattooed. ASSESSMENT: Probable colon cancer. PLAN: He has a CT scan later today. Will probably need a low anterior resection. Job ID: [id number]
[2019-12-31] MEDS: HumaLOG 300 UNITS/3 ML VIAL SC PRN (17:14)
[2020-01-01 05:01] LABS: #Eosinphils 0.5 thou/uL (0.0-0.7); #Lymphocytes 0.7 thou/uL (1.20-3.40); #Monocytes 1.1 thou/uL (0.11-0.59); %Basophils 0.5 % (0.0-1.0); %Eosinophils 5.5 % (0.0-10.0); %Monocytes 13.2 % (0.0-10.0); %Neutrophils 72.8 % (42.0-75.0); Hemoglobin 7.7 g/dL (14.0-18.0); Mean Corpuscular HGB CONC 29.4 g/dL (32.0-36.0); Mean Corpuscular Hemoglobin 19.7 pg (27.0-31.0); Mean Corpuscular Volume 66.9 fL (78.0-98.0); Mean Platelet Volume 11.6 fL (7.4-10.4); Platelet Count 268 thou/uL (130-400); RBC Distribution Width 24.1 % (11.5-14.5); Red Blood Cell (RBC) Count 3.91 mill/uL (4.70-6.10); White Blood Cell (WBC) Count 8.2 thou/uL (4.8-10.8)
[2020-01-01 05:18] LABS: Anion Gap 12 mmol/L (10-20); BUN (Urea Nitrogen) 5 mg/dL (8.4-25.7); Calc. Creatinine Clearance 121 mL/min (70-130); Calcium 8.7 mg/dL (7.8-10.44); Carbon Dioxide 26 mmol/L (23-31); Chloride 92 mmol/L (98-107); Estimated GFR-MDRD Greater than 90; Glucose 134 mg/dL (80-115); Potassium 3.6 mmol/L (3.5-5.1); Sodium 126 mmol/L (136-145)
[2020-01-01] MEDS: Triamterene/Hydrochlorothiazide 37.5 mg/25 mg Tablet PO SCH (09:03)
[2020-01-01] MEDS: Carvedilol 6.25 MG TAB PO SCH ×2 (09:03→20:47)
[2020-01-01] MEDS: Sacubitril 49 MG/Valsartan 51 MG TABLET PO SCH ×2 (09:03→20:47)
[2020-01-01] MEDS: Pantoprazole 40 MG VIAL IVP SCH (09:03)
[2020-01-01] MEDS: Rosuvastatin 5 MG TAB PO SCH (09:03)
--- NOTE | 2020-01-01 10:38 | PRG ---
DATE OF SERVICE: 01/01/2020 SUBJECTIVE: The patient states he is feeling fine and had not any obvious rectal bleeding. He is having no pain. He is passing gas. He is tolerating the clear liquids well. OBJECTIVE: VITAL SIGNS: His temperature is 98, pulse 61, blood pressure 116/56. GENERAL: He is awake, alert, does look a little pale. LUNGS: Clear. HEART: Regular rate and rhythm. ABDOMEN: Obese. He has a large ventral hernia just above the umbilicus. It is little softer than yesterday. No tenderness. No definite mass. LABORATORY DATA: His white count is 8.2, H and H of 7.7 and 26, platelet count 268. Electrolytes are okay. ASSESSMENT: Blood loss anemia from colon cancer, not obstructed. PLAN: I would much rather do this surgery on Friday when I have a complete crew available to do it right. I am not sure I can do it laparoscopically due to his morbid obesity and hernia, so I am planning on an open sigmoid colon resection with ventral hernia repair on Friday. We will keep him on clear liquids until then. Tomorrow, we will start some oral neomycin and metronidazole. Job ID: [id number]
--- NOTE | 2020-01-01 11:37 | PDOC.HOSPP ---
- Subjective Encounter Date: 01/01/20 Encounter Time: 10:30 Subjective: no further bleeding or sob feels good is amb in room - Objective Vital Signs & Weight: Vital Signs (12 hours) Temp Pulse Resp BP BP Pulse Ox 01/01/20 09:03 116/56 L 01/01/20 08:55 98.0 F 61 16 116/56 L 100 01/01/20 03:50 97.9 F 64 20 119/58 L 100 Weight Weight 188 lb 3.2 oz I&O: 12/31/19 01/01/20 01/02/20 06:59 06:59 06:59 Intake Total 4200 2400 Output Total 2250 2880 Balance 1950 -480 Result Diagrams: 01/01/20 04:44 01/01/20 04:44 Additional Labs: Accuchecks 01/01/20 01/01/20 12/31/19 11:05 06:06 20:11 POC Glucose 222 H 157 H 166 H 12/31/19 12/31/19 12/29/19 17:13 12:19 16:21 POC Glucose 268 H 182 H 140 H Hospitalist ROS - Medication Medications: Active Medications Generic Name Dose Route Start Last Admin Trade Name Freq PRN Reason Stop Dose Admin Carvedilol 6.25 mg 12/28/19 21:00 01/01/20 09:03 Coreg PO 6.25 mg BID NEVA Administration Insulin Human Lispro 0 units 12/28/19 19:07 12/31/19 17:14 Humalog SC 6 unit .MODERATE SLIDING SC PRN Administration Moderate Correctional Scale Pantoprazole Sodium 40 mg 01/01/20 09:00 01/01/20 09:03 Protonix IVP 40 mg DAILY NEVA Administration Rosuvastatin Calcium 5 mg 12/29/19 09:00 01/01/20 09:03 Crestor PO 5 mg DAILY NEVA Administration Sacubitril/Valsartan 1 tab 12/28/19 21:00 01/01/20 09:03 Entresto 49 Mg-51 Mg Tablet PO 1 tab BID NEVA Administration Triamterene/HCTZ 1 tab 12/29/19 09:00 01/01/20 09:03 Maxzide-25 PO 1 tab DAILY NEVA Administration - Exam General Appearance: awake alert Eye: PERRL, anicteric sclera ENT: no oropharyngeal lesions, moist mucosa Neck: supple, no JVD Heart: RRR, no murmur Respiratory: no wheezes, no rales Gastrointestinal: soft, non-tender, non-distended, normal bowel sounds Extremities: no cyanosis, no edema Neurological: cranial nerve grossly intact, no focal deficits Psychiatric: A&O x 3 Hosp A/P (1) Colonic mass Code(s): K63.89 - OTHER SPECIFIED DISEASES OF INTESTINE Status: Acute (2) Acute blood loss anemia Code(s): D62 - ACUTE POSTHEMORRHAGIC ANEMIA Status: Acute (3) GI bleed Code(s): K92.2 - GASTROINTESTINAL HEMORRHAGE, UNSPECIFIED Status: Acute Qualifiers: GI bleed type/associated pathology: unspecified gastrointestinal hemorrhage type Qualified Code(s): K92.2 - Gastrointestinal hemorrhage, unspecified (4) Afib Code(s): I48.91 - UNSPECIFIED ATRIAL FIBRILLATION Status: Chronic Qualifiers: Atrial fibrillation type: paroxysmal Qualified Code(s): I48.0 - Paroxysmal atrial fibrillation (5) Acute exacerbation of CHF (congestive heart failure) Code(s): I50.9 - HEART FAILURE, UNSPECIFIED Status: Acute Qualifiers: Heart failure type: combined systolic and diastolic Qualified Code(s): I50.43 - Acute on chronic combined systolic (congestive) and diastolic ( congestive) heart failure (6) DM type 2 (diabetes mellitus, type 2) Status: Chronic Qualifiers: Diabetes mellitus detention insulin use: without detention use (7) Dyslipidemia Code(s): E78.5 - HYPERLIPIDEMIA, UNSPECIFIED Status: Chronic (8) HTN (hypertension) Code(s): I10 - ESSENTIAL (PRIMARY) HYPERTENSION Status: Chronic Qualifiers: Hypertension type: essential hypertension Qualified Code(s): I10 - Essential (primary) hypertension (9) H/O post-polio syndrome Code(s): Z86.12 - PERSONAL HISTORY OF POLIOMYELITIS Status: Chronic (10) Alcohol abuse Code(s): F10.10 - ALCOHOL ABUSE, UNCOMPLICATED Status: Chronic (11) Hyponatremia Code(s): E87.1 - HYPO-OSMOLALITY AND HYPONATREMIA Status: Chronic - Plan recieved 2 u prbc 12/29/2019, Hb around 7-8g and stable egd/colonoscopy 12/31/2019, CEA levels, has rectosigmoid mass for surgery on Friday. is on triamterene/hctz, he is tolerating well, edema has resolved from his legs chronic hyponatremia has diuresed well so far PT to mobilize as tolerated will need blood for surgery on Friday
[2020-01-01] MEDS: HumaLOG 300 UNITS/3 ML VIAL SC PRN ×2 (12:09→20:46)
--- NOTE | 2020-01-01 13:10 | PRG ---
DATE OF SERVICE: 01/01/2020 SUBJECTIVE: Mr. Aguilar is feeling well. He is on his clear liquid diet. He has been ambulating about the room. No abdominal pain or overt bleeding. OBJECTIVE: VITAL SIGNS: Temperature 98.0, pulse 61, blood pressure 116/56, and 100% oxygen saturation on room air. GENERAL: No acute distress. HEART: Regular rate and rhythm. LUNGS: Clear to auscultation bilaterally. ABDOMEN: Bowel sounds present. Soft, nontender to palpation. Large ventral hernia. EXTREMITIES: No peripheral edema. LABORATORY DATA: Hemoglobin 7.7, WBC 8.2, and platelets 268. INR 1.4. Sodium 126, potassium 3.6, BUN 5, creatinine 0.72, glucose 222, and calcium 8.7. CEA only 4.98. IMAGING STUDIES: CT of the abdomen and pelvis with contrast was performed yesterday. This demonstrates no obvious enhancing masses within the liver. Normal pancreas and spleen. Patent portal vein. No ascites or free air in the peritoneum. No pelvic lymphadenopathy. There is circumferential mucosal thickening in the distal sigmoid colon and rectum with associated adjacent mesenteric lymphadenopathy. There is a ventral abdominal wall hernia with a mesenteric sac measuring 10 x 4 cm. The hernia defect is 2.3 cm. Pathology is still pending on gastric biopsies and rectosigmoid mass biopsies. ASSESSMENT AND PLAN: 1. Rectosigmoid mass. 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 Pathology is pending. Tattoo was placed during colonoscopy yesterday. I appreciate Dr. Zamora's assistance. Open resection with hernia repair is tentatively set for this coming Friday. CT shows no clear evidence of metastatic disease and CEA is only 4.98, which is a good sign. Following recovery, if malignancy is confirmed on pathology, I would have him see an oncologist as well. We will have him follow up with Dr. Samayoa in the coming weeks. Plan for surveillance colonoscopy at 6- to 12-month interval. 2. Gastric ulcers. He did have nonbleeding gastric ulcers on the posterior wall of the gastric body visualized yesterday. Gastric biopsies pending. Continue PPI, transition to oral twice daily dosing on hospital discharge. If H pylori is present, treat with triple therapy and confirm eradication. GI will sign off and follow more peripherally at this time, but please call back anytime with questions or concerns. Job ID: [id number]
--- NOTE | 2020-01-01 15:34 | PRG ---
DATE OF SERVICE: SUBJECTIVE: Patient was seen and examined at bedside and overnight events noted. Patient denies any shortness of breath or chest pain or palpitation. No history of nausea or vomiting or diarrhea or fever or chills or cramps. OBJECTIVE: General: This is a well-built male, in no apparent distress. Vital Signs: Temperature 97.9, pulse 68, respiratory rate 18, blood pressure 118/68. HEENT: Atraumatic, normocephalic. Oral mucosa is moist. Neck: Supple. Cardiovascular: S1, S2 heard. Rate and rhythm regular. Respiratory: Clear to auscultation. Gastrointestinal: Abdomen is soft. Musculoskeletal: No tenderness. No edema. Dermatologic: No skin rash. Neurologic: Alert and awake and oriented x3. No focal neurologic deficits. Moving all the extremities. Psychiatric: Mood and affect normal. LABORATORY DATA: Sodium is 126, BUN is 5, and creatinine is 0.7 ASSESSMENT AND PLAN: 1. Hyponatremia. 2. Edema, controlled. 3. Hypokalemia. Continue fluid restriction. Continue diuretics. We will follow. Job ID: [id number]
[2020-01-02 05:25] LABS: Anion Gap 13 mmol/L (10-20); BUN (Urea Nitrogen) 5 mg/dL (8.4-25.7); Calc. Creatinine Clearance 120 mL/min (70-130); Calcium 8.6 mg/dL (7.8-10.44); Carbon Dioxide 24 mmol/L (23-31); Chloride 90 mmol/L (98-107); Estimated GFR-MDRD Greater than 90; Glucose 128 mg/dL (80-115); Potassium 3.2 mmol/L (3.5-5.1); Sodium 124 mmol/L (136-145)
[2020-01-02 05:34] LABS: Eosinophils 5 % (0-10); Hemoglobin 7.8 g/dL (14.0-18.0); Lymphocytes 11 % (21-51); MDiff Complete? YES; Mean Corpuscular HGB CONC 30.2 g/dL (32.0-36.0); Mean Corpuscular Hemoglobin 20.2 pg (27.0-31.0); Mean Corpuscular Volume 66.9 fL (78.0-98.0); Mean Platelet Volume 11.5 fL (7.4-10.4); Metamyelocyte 1 % (0-0); Microcytosis MODERATE=15-30 cells (100X) (0-5/hpf); Monocytes 17 % (0-10); Neutrophil 66 % (42-75); Platelet Count 307 thou/uL (130-400); Platelet Morphology Comment Appears Adequate; RBC Distribution Width 23.8 % (11.5-14.5); Red Blood Cell (RBC) Count 3.84 mill/uL (4.70-6.10); White Blood Cell (WBC) Count 4.4 thou/uL (4.8-10.8)
[2020-01-02] MEDS: HumaLOG 300 UNITS/3 ML VIAL SC PRN ×4 (06:03→20:03)
[2020-01-02] MEDS: Carvedilol 6.25 MG TAB PO SCH ×2 (09:26→20:03)
[2020-01-02] MEDS: Sacubitril 49 MG/Valsartan 51 MG TABLET PO SCH ×2 (09:26→20:14)
[2020-01-02] MEDS: Rosuvastatin 5 MG TAB PO SCH (09:26)
[2020-01-02] MEDS: Triamterene/Hydrochlorothiazide 37.5 mg/25 mg Tablet PO SCH (09:26)
[2020-01-02] MEDS: Pantoprazole 40 MG VIAL IVP SCH (09:27)
--- NOTE | 2020-01-02 10:26 | PRG ---
DATE OF SERVICE: 01/02/2020 SUBJECTIVE: The patient is doing fine. He is preop for surgery tomorrow. No pain. No further bleeding. OBJECTIVE: VITAL SIGNS: Temperature 97.9, pulse 62, and blood pressure 134/66. General: He is awake and alert. He is pale. LUNGS: Clear. HEART: Regular rate and rhythm. ABDOMEN: Soft and nondistended. He has this recurrent ventral hernia. LABORATORY DATA: His white count is 4.4, H and H are 7.8 and 25, platelet count is 307. Electrolytes; sodium is low at 124, potassium 3.2, chloride 90, BUN 5, and glucose 128. ASSESSMENT: Sigmoid colon mass with recurrent ventral hernia, suspicious for sigmoid colon cancer. PLAN: Check a CEA level. Typed and screened for 2 units. Sigmoid colectomy tomorrow. Job ID: [id number]
--- NOTE | 2020-01-02 10:49 | PDOC.HOSPP ---
- Subjective Encounter Date: 01/02/20 Encounter Time: 09:00 Subjective: no further bleeding per rectum is tolerating liq diet no nausea or abd pain or sob is amb with crutches in the room - Objective Vital Signs & Weight: Vital Signs (12 hours) Temp Pulse Resp BP Pulse Ox 01/02/20 07:49 97.9 F 62 20 134/66 100 01/02/20 03:20 97.6 F 63 16 132/66 100 01/02/20 00:00 97.6 F 62 16 127/64 100 Weight Weight 185 lb I&O: 01/01/20 01/02/20 01/03/20 06:59 06:59 06:59 Intake Total 2400 2980 Output Total 2880 2850 Balance -480 130 Result Diagrams: 01/02/20 04:29 01/02/20 04:29 Additional Labs: Accuchecks 01/02/20 01/01/20 01/01/20 06:07 20:50 17:43 POC Glucose 167 H 213 H 136 H 01/01/20 11:05 POC Glucose 222 H Hospitalist ROS - Medication Medications: Active Medications Generic Name Dose Route Start Last Admin Trade Name Freq PRN Reason Stop Dose Admin Carvedilol 6.25 mg 12/28/19 21:00 01/02/20 09:26 Coreg PO 6.25 mg BID NEVA Administration Insulin Human Lispro 0 units 12/28/19 19:07 01/02/20 06:03 Humalog SC 2 unit .MODERATE SLIDING SC PRN Administration Moderate Correctional Scale Pantoprazole Sodium 40 mg 01/01/20 09:00 01/02/20 09:27 Protonix IVP 40 mg DAILY NEVA Administration Rosuvastatin Calcium 5 mg 12/29/19 09:00 01/02/20 09:26 Crestor PO 5 mg DAILY NEVA Administration Sacubitril/Valsartan 1 tab 12/28/19 21:00 01/02/20 09:26 Entresto 49 Mg-51 Mg Tablet PO 1 tab BID NEVA Administration Triamterene/HCTZ 1 tab 12/29/19 09:00 01/02/20 09:26 Maxzide-25 PO 1 tab DAILY NEVA Administration - Exam General Appearance: awake alert Eye: PERRL, anicteric sclera ENT: no oropharyngeal lesions, moist mucosa Neck: supple, no JVD Heart: RRR, no murmur Respiratory: no wheezes, no rales Gastrointestinal: soft, non-tender, non-distended, normal bowel sounds Extremities: no cyanosis, no edema Neurological: cranial nerve grossly intact, no focal deficits Psychiatric: normal affect, A&O x 3 Hosp A/P (1) Colonic mass Code(s): K63.89 - OTHER SPECIFIED DISEASES OF INTESTINE Status: Acute (2) Acute blood loss anemia Code(s): D62 - ACUTE POSTHEMORRHAGIC ANEMIA Status: Acute (3) GI bleed Code(s): K92.2 - GASTROINTESTINAL HEMORRHAGE, UNSPECIFIED Status: Resolved Qualifiers: GI bleed type/associated pathology: unspecified gastrointestinal hemorrhage type Qualified Code(s): K92.2 - Gastrointestinal hemorrhage, unspecified (4) Afib Code(s): I48.91 - UNSPECIFIED ATRIAL FIBRILLATION Status: Chronic Qualifiers: Atrial fibrillation type: paroxysmal Qualified Code(s): I48.0 - Paroxysmal atrial fibrillation (5) Acute exacerbation of CHF (congestive heart failure) Code(s): I50.9 - HEART FAILURE, UNSPECIFIED Status: Resolved Qualifiers: Heart failure type: combined systolic and diastolic Qualified Code(s): I50.43 - Acute on chronic combined systolic (congestive) and diastolic ( congestive) heart failure (6) DM type 2 (diabetes mellitus, type 2) Status: Chronic Qualifiers: Diabetes mellitus retirement insulin use: without superintendent terminal use (7) Dyslipidemia Code(s): E78.5 - HYPERLIPIDEMIA, UNSPECIFIED Status: Chronic (8) HTN (hypertension) Code(s): I10 - ESSENTIAL (PRIMARY) HYPERTENSION Status: Chronic Qualifiers: Hypertension type: essential hypertension Qualified Code(s): I10 - Essential (primary) hypertension (9) H/O post-polio syndrome Code(s): 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 is on triamterene/hctz, he is tolerating well, edema has resolved from his legs , kdur daily chronic hyponatremia has diuresed well so far PT to mobilize as tolerated is getting optimized for surgery in am
[2020-01-02] MEDS ORDERED: Potassium Chloride 20 MEQ TAB PO SCH (11:00)
[2020-01-02] MEDS: Neomycin 500 mg Tablet PO SCH ×2 (12:06→18:32)
[2020-01-02] MEDS: metroNIDAZOLE 500 MG TAB PO SCH ×2 (12:07→20:03)
--- NOTE | 2020-01-02 15:09 | PRG ---
DATE OF SERVICE: 01/02/2020 SUBJECTIVE: Patient was seen and examined at bedside and overnight events noted. Patient denies any shortness of breath or chest pain or palpitation. No history of nausea or vomiting or diarrhea or fever or chills or cramps. OBJECTIVE: GENERAL: This is a well-built male, in no apparent distress. VITAL SIGNS: Temperature 98.3. Heart rate 62. Respiratory rate 20. Blood pressure 115/66. HEENT: Atraumatic, normocephalic. Oral mucosa is moist NECK: Supple. CARDIOVASCULAR: S1, S2 heard. Rate and rhythm regular. RESPIRATORY: Clear to auscultation. GASTROINTESTINAL: Abdomen is soft. MUSCULOSKELETAL: No tenderness. No edema. DERMATOLOGIC: No skin rash. NEUROLOGIC: Alert and awake and oriented X3. No focal neurologic deficits. Moving all the extremities. PSYCHIATRIC: Mood and affect normal. LABORATORY DATA: Sodium 124, potassium 3.2, BUN is 5, creatinine 0.7. ASSESSMENT AND PLAN: 1. Hyponatremia, getting worse, most likely from liquid diet. Not able to have fluid restriction. Also maybe the diuretic is not working. Plan is to stop triamterene/hydrochlorothiazide, start him on Bumex and monitor closely. The patient did have allergy to Lasix, but have tolerated sulfa antibiotics and hydrochlorothiazide, so I do not expect a class allergy for sulfa, but still continue close monitoring, especially on Bumex. The patient is going for surgery also tomorrow. 2. Edema, controlled. 3. Hypokalemia, replaced. 4. History of hypertension. Start Bumex in the morning with close monitoring for any allergic symptoms. Job ID: [id number]
[2020-01-03] MEDS: Neomycin 500 mg Tablet PO SCH ×3 (04:14→18:22)
[2020-01-03] MEDS: HumaLOG 300 UNITS/3 ML VIAL SC PRN ×3 (05:57→16:18)
[2020-01-03] MEDS ORDERED: Fentanyl 250 MCG/5 ML VIAL ONE (06:37)
[2020-01-03] MEDS ORDERED: Lidocaine 4% Topical Sol 50 ML BOT ONE (06:37)
[2020-01-03] MEDS ORDERED: Levofloxacin 500 mg/D5W 100 ml Premix Bag ONE (07:00)
[2020-01-03] MEDS ORDERED: Fentanyl 100 MCG/2 ML VIAL ONE ×2 (07:03→09:59)
[2020-01-03] MEDS ORDERED: Midazolam HCl 2 mg/2 ml Vial ONE (07:03)
[2020-01-03] MEDS ORDERED: Bupivacaine PF 0.5% 30 ML VIAL ONE (07:04)
[2020-01-03] MEDS ORDERED: Bupivacaine 0.25% HCL 30 ML VIAL ONE (07:04)
[2020-01-03] MEDS ORDERED: Promethazine HCl 25 MG/ML VIAL IM PRN (09:52)
[2020-01-03] MEDS ORDERED: Ondansetron PF 4 MG/2 ML Vial IVP PRN (09:52)
[2020-01-03] MEDS: metroNIDAZOLE 500 MG TAB PO SCH (09:52)
[2020-01-03] MEDS: Carvedilol 6.25 MG TAB PO SCH ×2 (09:52→20:13)
[2020-01-03] MEDS ORDERED: hydrALAZINE 20 MG/ML VIAL SLOW IVP PRN (09:52)
[2020-01-03] MEDS: Rosuvastatin 5 MG TAB PO SCH (09:53)
[2020-01-03] MEDS: Pantoprazole 40 MG VIAL IVP SCH (09:53)
[2020-01-03] MEDS: Potassium Chloride 20 MEQ TAB PO SCH (09:54)
[2020-01-03] MEDS: Sacubitril 49 MG/Valsartan 51 MG TABLET PO SCH ×2 (10:50→20:13)
[2020-01-03] MEDS: Bumetanide 1 MG TAB PO SCH (10:56)
--- NOTE | 2020-01-03 11:11 | OP ---
DATE OF PROCEDURE: 01/03/2020 PREOPERATIVE DIAGNOSES: Bleeding sigmoid colon mass, recurrent incisional hernia. PROCEDURES PERFORMED: Open low anterior resection, repair of ventral hernia. INDICATIONS: This is a 69-year-old male, who became profoundly anemic, required 4 units of blood transfusion. Colonoscopy revealed a suspicious mass at the rectosigmoid junction that was biopsied, but the path is not back yet. FINDING: A 4-cm mass. We got at least 2 cm of margin grossly. The hernia contained omentum. It is about a 6-cm hernia. DESCRIPTION OF PROCEDURE: After informed consent was obtained, the patient was taken to the operating room and given general endotracheal anesthesia. He had a mechanical bowel prep. He was given TAP blocks. A low midline incision was performed. Subcu divided sharply. The hernia sac was opened and the fascia opened. The hernia sac was reduced of the omentum. The fascia opened down to the pubis. Retraction was achieved utilizing a Bookwalter retractor. The white line of Toldt was incised with Metzenbaum scissors. The ureter was seen on the left. It was dilated. The ureter was also dilated on the right and was also visualized. The colon was divided utilizing a Contour stapling device in the mid sigmoid colon. The mesentery divided utilizing the LigaSure down to the sacrum. The mass was palpable as well as there was tattooing from where the endoscopist had marked it. I divided the lateral stalks with the LigaSure. Blunt dissection was performed between the rectum and the bladder and between the rectum and the sacrum down to the coccyx. Then, the rectum was divided utilizing the Contour stapler. The specimen was opened in the operating room and we had grossly clear margins. It was marked with a suture distal and sent to Pathology for further analysis. The pelvis was irrigated. Hemostasis was assured. Then, the 31 EEA was used. The proximal staple line was excised. After control was obtained with a Az clamp and the anvil was inserted through the antimesenteric taenia. The colon was then closed with a Contour stapler. The EEA was inserted transanally and brought out anterior to these staple line in midline. The proximal colon was attached or the anvil was attached to the stapler, closed and fired. The anastomosis was tested by inserting a proctoscope in the distal rectum. The colon was insufflated with air under water. There was no air leak. The colon was decompressed. Hemostasis was assured. The omentum was placed anteriorly. The fascia was closed with a running looped #1 PDS with interrupted [id number] and #1 Prolene. Hemostasis was assured. The subcu was irrigated with pulse home health lpn and also gloves and gowns were changed. The skin closed with skin haley and the CHERYL closed wound VAC system was applied to the wound, to hopefully give him the best chance at not having an infection. The patient tolerated the procedure well, transferred to Recovery in good condition. Sponge and needle count verified correct x2. Job ID: [id number]
[2020-01-03] MEDS ORDERED: PROPOFOL 200 MG/20 ML VIAL ONE (11:17)
[2020-01-03] MEDS ORDERED: Ondansetron PF 4 MG/2 ML Vial ONE (11:17)
[2020-01-03] MEDS ORDERED: Lidocaine 1% PF 5 ML VIAL ONE (11:17)
[2020-01-03] MEDS ORDERED: Bupivacaine HCl 0.5%/Epinephrine 1:200,000/PF 30 ml Vial ONE (11:17)
[2020-01-03] MEDS ORDERED: PHENYLEPHRINE-NS 100 MCG/ML 10 ML SYRINGE ONE (11:17)
[2020-01-03] MEDS ORDERED: Ketorolac Tromethamine 30 MG/ML VIAL ONE (11:17)
[2020-01-03] MEDS ORDERED: Dexamethasone 20 MG/5 ML VIAL ONE (11:17)
[2020-01-03] MEDS ORDERED: Rocuronium Bromide 10 MG/ML (10ML VIAL) ONE (11:17)
[2020-01-03] MEDS ORDERED: Glycopyrrolate 0.2 MG/ML 5 ML SYRINGE ONE (11:17)
[2020-01-03] MEDS: metroNIDAZOLE 500 MG in Premix Bag 1 BAG IVPB SCH ×3 (11:20→22:55)
--- NOTE | 2020-01-03 11:23 | PRG ---
DATE OF SERVICE: 01/03/2020 SUBJECTIVE: A 69-year-old gentleman, being seen for hyponatremia. OBJECTIVE: GENERAL: The patient is resting. Vital Signs: Afebrile, pulse 60, breathing at 16, blood pressure 131/68. HEENT: Head normocephalic and atraumatic. Eyes intact, no ulcers. Nose intact, no ulcers. Ears intact, no ulcers. NECK: Supple. No JVD. CHEST: Symmetrical and clear. CARDIOVASCULAR: Shows S1 and S2, no rub, no murmur. GASTROINTESTINAL: Abdomen is soft, bowel sounds positive. EXTREMITIES: Show no edema or ulcers. SKIN: Shows no rash or petechiae. MUSCULOSKELETAL: Shows no joint swelling or stiffness. GENITOURINARY: Shows no Eaton or CVA tenderness. NEUROLOGIC: Motor intact. Cranial nerves intact. LABORATORY DATA: Show hemoglobin 7.8. Labs from today are pending. ASSESSMENT AND RECOMMENDATIONS: 1. Chronic kidney disease, stage 1, stable. 2. Hyponatremia. We would recommend 1000 mL fluid restriction. Most likely, syndrome of inappropriate antidiuretic hormone secretion. We will order serum and urine osmolality. 3. Anemia. We would recommend transfusion. 4. Medication based on GFR, appropriate. Job ID: [id number]
[2020-01-03] MEDS: Morphine 4 MG/ML VIAL SLOW IVP PRN ×4 (11:30→23:03)
[2020-01-03] MEDS ORDERED: Ketorolac Tromethamine 30 MG/ML VIAL IVP SCH (12:00)
[2020-01-03 12:06] LABS: Anion Gap 12 mmol/L (10-20); BUN (Urea Nitrogen) 5 mg/dL (8.4-25.7); Calc. Creatinine Clearance 109 mL/min (70-130); Calcium 8.3 mg/dL (7.8-10.44); Carbon Dioxide 21 mmol/L (23-31); Chloride 97 mmol/L (98-107); Estimated GFR-MDRD Greater than 90; Glucose 187 mg/dL (80-115); Sodium 126 mmol/L (136-145)
--- NOTE | 2020-01-03 13:39 | PDOC.FMACP ---
Advance Care Planning - Problem (1) Palliative care encounter Status: Acute Code(s): Z51.5 - ENCOUNTER FOR PALLIATIVE CARE (2) Acute blood loss anemia Status: Acute Code(s): D62 - ACUTE POSTHEMORRHAGIC ANEMIA (3) Colonic mass Status: Acute Code(s): K63.89 - OTHER SPECIFIED DISEASES OF INTESTINE (4) Afib Status: Chronic Code(s): I48.91 - UNSPECIFIED ATRIAL FIBRILLATION Qualifiers: Atrial fibrillation type: paroxysmal Qualified Code(s): I48.0 - Paroxysmal atrial fibrillation (5) Alcohol abuse Status: Chronic Code(s): F10.10 - ALCOHOL ABUSE, UNCOMPLICATED (6) H/O post-polio syndrome Status: Chronic Code(s): Z86.12 - PERSONAL HISTORY OF POLIOMYELITIS (7) GI bleed Status: Resolved Code(s): K92.2 - GASTROINTESTINAL HEMORRHAGE, UNSPECIFIED Qualifiers: GI bleed type/associated pathology: unspecified gastrointestinal hemorrhage type Qualified Code(s): K92.2 - Gastrointestinal hemorrhage, unspecified - Note Participants: patient, palliative care Summary: Palliative Care introduced Advanced Care Planning, opportunity was allowed to decline. The diagnosis, prognosis and goals of care were discussed. Appropriate forms and documentation to accomplish the goals of care were discussed, Mr Naylor elected to complete a Medical Power of Mortgage Loan Specialist, was provided information in relation to Directive to Physicians and confirmed that he wishes to remain with full resuscitative measures in place. Dee Romo assisted with completion and notarization of document, placed on chart and copies made for patient. All questions were answered. Time Spent (mins): 30
[2020-01-03] MEDS: Ketorolac Tromethamine 30 MG/ML VIAL IVP SCH ×2 (14:22→20:15)
[2020-01-03] MEDS: Sodium Chloride 0.9% 1,000 ML IV SCH ×2 (16:21→20:26)
--- NOTE | 2020-01-03 18:43 | PDOC.HOSPP ---
- Subjective Encounter Date: 01/03/20 Encounter Time: 18:41 Subjective: Pt seen for followup re: rectosigmoid mass. Reports soreness at surgical site. No fevers. - Objective Vital Signs & Weight: Vital Signs (12 hours) Temp Pulse Resp BP BP Pulse Ox 01/03/20 15:14 97.7 F 66 18 119/67 97 01/03/20 11:05 100 01/03/20 11:00 97.3 F L 55 L 18 149/77 H 100 01/03/20 09:52 146/66 H Weight Weight 185 lb 0.014 oz I&O: 01/02/20 01/03/20 01/04/20 06:59 06:59 06:59 Intake Total 2980 1780 840 Output Total 2850 625 250 Balance 130 1155 590 Result Diagrams: 01/02/20 04:29 01/03/20 11:24 Additional Labs: Accuchecks 01/03/20 01/03/20 01/03/20 15:03 11:45 07:09 POC Glucose 181 H 209 H 159 H 01/03/20 01/02/20 05:58 20:06 POC Glucose 168 H 208 H Labs and MARs reviewed by ks Hospitalist ROS - Review of Systems Cardiovascular: denies: chest pain, palpitations, orthopnea, paroxysmal noc. dyspnea, edema, light headedness Gastrointestinal: denies: nausea, vomiting, abdominal pain, diarrhea, constipation, melena, hematochezia - Medication Medications: Active Medications Generic Name Dose Route Start Last Admin Trade Name Freq PRN Reason Stop Dose Admin Carvedilol 6.25 mg 12/28/19 21:00 01/03/20 09:52 Coreg PO Not Given BID NEVA Metronidazole 500 mg/ Device 100 mls @ 100 mls/hr 01/03/20 10:30 01/03/20 16: 18 IVPB 01/03/20 23:29 100 mls Q6H NEVA Administration Sodium Chloride 1,000 mls @ 120 mls/hr 01/03/20 10:00 01/03/20 16:21 Normal Saline 0.9% IV 1,000 mls .Q8H20M NEVA Administration Insulin Human Lispro 0 units 12/28/19 19:07 01/03/20 16:18 Humalog SC 2 unit .MODERATE SLIDING SC PRN Administration Moderate Correctional Scale Ketorolac Tromethamine 15 mg 01/03/20 15:00 01/03/20 14:22 Toradol IVP 01/06/20 15:01 15 mg 0300,0900,1500,2100 NEVA Administration Morphine Sulfate 4 mg 01/03/20 09:52 01/03/20 16:21 Morphine SLOW IVP 4 mg Q2H PRN Administration Moderate Pain (4-6) Neomycin Sulfate 1,000 mg 01/02/20 11:00 01/03/20 18:22 Neomycin Sulfate PO 1,000 mg Q8H NEVA Administration Pantoprazole Sodium 40 mg 01/01/20 09:00 01/03/20 09:53 Protonix IVP Not Given DAILY NEVA Potassium Chloride 40 meq 01/03/20 08:00 01/03/20 09:54 K-Dur PO Not Given QAM-WM NEVA Rosuvastatin Calcium 5 mg 12/29/19 09:00 01/03/20 09:53 Crestor PO Not Given DAILY NEVA Sacubitril/Valsartan 1 tab 12/28/19 21:00 01/03/20 10:50 Entresto 49 Mg-51 Mg Tablet PO Not Given BID NEVA Hosp A/P - Plan Hosp A/P - Assessment (1) Colonic mass Code(s): K63.89 - OTHER SPECIFIED DISEASES OF INTESTINE Status: Acute (2) Afib Code(s): I48.91 - UNSPECIFIED ATRIAL FIBRILLATION Status: Chronic Qualifiers: Atrial fibrillation type: paroxysmal Qualified Code(s): I48.0 - Paroxysmal atrial fibrillation (3) DM type 2 (diabetes mellitus, type 2) Status: Chronic Qualifiers: Diabetes mellitus mcc insulin use: without terminal worker use (4) Dyslipidemia Code(s): E78.5 - HYPERLIPIDEMIA, UNSPECIFIED Status: Chronic (5) HTN (hypertension) Code(s): I10 - ESSENTIAL (PRIMARY) HYPERTENSION Status: Chronic Qualifiers: Hypertension type: essential hypertension Qualified Code(s): I10 - Essential (primary) hypertension (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 - PERSONAL HISTORY OF POLIOMYELITIS Status: Chronic (7) Alcohol abuse Code(s): F10.10 - ALCOHOL ABUSE, UNCOMPLICATED Status: Chronic (8) Hyponatremia Code(s): E87.1 - HYPO-OSMOLALITY AND HYPONATREMIA Status: Chronic (9) Acute blood loss anemia Code(s): D62 - ACUTE POSTHEMORRHAGIC ANEMIA Status: Resolved (10) GI bleed Code(s): K92.2 - GASTROINTESTINAL HEMORRHAGE, UNSPECIFIED Status: Resolved Qualifiers: GI bleed type/associated pathology: unspecified gastrointestinal hemorrhage type Qualified Code(s): K92.2 - Gastrointestinal hemorrhage, unspecified (11) Acute exacerbation of CHF (congestive heart failure) Code(s): I50.9 - HEART FAILURE, UNSPECIFIED Status: Resolved Qualifiers: Heart failure type: combined systolic and diastolic Qualified Code(s): I50.43 - Acute on chronic combined systolic (congestive) and diastolic ( congestive) heart failure - Plan s/p surgery for rectosigmoid mass s/p pRBC transfusion, Hb stable HTN controlled chronic hyponatremia, stable Ambulate patient
[2020-01-03] MEDS: Famotidine/PF 20 mg/2ml Vial SLOW IVP SCH (20:14)
[2020-01-03] MEDS: Famotidine 20 MG TAB PO SCH (20:14)
[2020-01-04] MEDS: Ketorolac Tromethamine 30 MG/ML VIAL IVP SCH ×2 (03:16→07:56)
[2020-01-04] MEDS: Neomycin 500 mg Tablet PO SCH ×3 (03:16→18:24)
[2020-01-04] MEDS: Sodium Chloride 0.9% 1,000 ML IV SCH ×2 (03:17→10:27)
[2020-01-04] MEDS: Morphine 4 MG/ML VIAL SLOW IVP PRN (03:19)
[2020-01-04 05:14] LABS: #Lymphocytes 0.4 thou/uL (1.20-3.40); #Monocytes 1.2 thou/uL (0.11-0.59); #Neutrophils 8.4 thou/uL (1.40-6.50); %Basophils 0.1 % (0.0-1.0); %Eosinophils 0.1 % (0.0-10.0); %Lymphocytes 3.8 % (21.0-51.0); %Monocytes 12.3 % (0.0-10.0); %Neutrophils 83.7 % (42.0-75.0); Hemoglobin 8.1 g/dL (14.0-18.0); Mean Corpuscular Hemoglobin 20.2 pg (27.0-31.0); Mean Corpuscular Volume 69.4 fL (78.0-98.0); Mean Platelet Volume 10.6 fL (7.4-10.4); Platelet Count 237 thou/uL (130-400); RBC Distribution Width 23.6 % (11.5-14.5); Red Blood Cell (RBC) Count 4.02 mill/uL (4.70-6.10)
[2020-01-04 05:28] LABS: Anion Gap 13 mmol/L (10-20); BUN (Urea Nitrogen) 9 mg/dL (8.4-25.7); Calc. Creatinine Clearance 103 mL/min (70-130); Calcium 7.6 mg/dL (7.8-10.44); Carbon Dioxide 18 mmol/L (23-31); Chloride 100 mmol/L (98-107); Estimated GFR-MDRD Greater than 90; Glucose 112 mg/dL (80-115); Potassium 4.1 mmol/L (3.5-5.1); Sodium 127 mmol/L (136-145)
[2020-01-04] MEDS: Morphine 2 MG/ML SYRINGE SLOW IVP PRN ×2 (07:16→16:49)
[2020-01-04] MEDS: Famotidine/PF 20 mg/2ml Vial SLOW IVP SCH (07:55)
[2020-01-04] MEDS: Carvedilol 6.25 MG TAB PO SCH ×2 (07:55→20:51)
[2020-01-04] MEDS: Famotidine 20 MG TAB PO SCH (07:56)
[2020-01-04] MEDS: Pantoprazole 40 MG VIAL IVP SCH (07:58)
[2020-01-04] MEDS: Rosuvastatin 5 MG TAB PO SCH (07:59)
[2020-01-04] MEDS: Bumetanide 1 MG TAB PO SCH (07:59)
[2020-01-04] MEDS: Potassium Chloride 20 MEQ TAB PO SCH (07:59)
[2020-01-04] MEDS: Sacubitril 49 MG/Valsartan 51 MG TABLET PO SCH ×2 (07:59→20:51)
--- NOTE | 2020-01-04 08:11 | PRG ---
DATE OF SERVICE: 01/04/2020 SUBJECTIVE: The patient is awake, alert. He says he feels pretty good. His pain is about a 6/10. No nausea. He is tolerating ice chips. He has not had a large urine output. His catheter is in. OBJECTIVE: VITAL SIGNS: Temperature is 98.6, pulse 61, blood pressure 114/59. GENERAL: He looks good. LUNGS: Clear. HEART: Regular rate and rhythm. ABDOMEN: Soft, nondistended. The wound VAC is dry. He has had 450 out of urine, +625. LABORATORY DATA: His sodium is only 127. His creatinine is 0.8. His white count is 10, H and H 8.1 and 27.9, platelet count 237. ASSESSMENT: Doing well. PLAN: We will try clear liquids. Try to get his catheter. PT consult. Job ID: [id number]
[2020-01-04] MEDS: Enoxaparin Sodium 40 MG/0.4 ML SYRINGE SC SCH (08:46)
[2020-01-04 11:32] VITALS: BMI 28.5
[2020-01-04] MEDS: HumaLOG 300 UNITS/3 ML VIAL SC PRN ×2 (11:38→20:56)
--- NOTE | 2020-01-04 13:10 | PRG ---
DATE OF SERVICE: 01/04/2020 SUBJECTIVE: A 69-year-old gentleman, being seen for acute kidney injury. The patient denies any nausea, vomiting, or chest pain. OBJECTIVE: GENERAL: The patient is awake and alert. VITAL SIGNS: Afebrile, pulse 75, breathing at 16, blood pressure 109/65. HEENT: Head normocephalic and atraumatic. Eyes intact, no ulcers. Nose intact, no ulcers. Ears intact, no ulcers. NECK: Supple. No JVD. CHEST: Symmetrical and clear. CARDIOVASCULAR: Shows S1 and S2, no rub, no murmur. GASTROINTESTINAL: Abdomen is soft, bowel sounds positive. EXTREMITIES: Show no edema or ulcers. SKIN: Shows no rash or petechiae. MUSCULOSKELETAL: Shows no joint swelling or stiffness. GENITOURINARY: Shows no Eaton or CVA tenderness. NEUROLOGIC: Motor intact. Cranial nerves intact. LABORATORY DATA: Show hemoglobin 8.1. Sodium is 127. ASSESSMENT AND RECOMMENDATIONS: 1. Hyponatremia, improved. 2. Metabolic acidosis. Continue bicarbonate by mouth. 3. Medication based on GFR. I would avoid ketorolac. Job ID: [id number]
[2020-01-04] MEDS: HYDROcodone/Acetaminophen 5/325 mg Tablet PO PRN ×2 (15:18→20:54)
[2020-01-04] MEDS ORDERED: Tamsulosin HCl 0.4 MG CAP PO SCH (15:45)
--- NOTE | 2020-01-04 19:25 | PDOC.HOSPP ---
- Subjective Encounter Date: 01/04/20 Encounter Time: 09:40 Subjective: Pt seen for followup re: sigmoid colon mass. Feels better today. had liquid breakfast. - Objective Vital Signs & Weight: Vital Signs (12 hours) Temp Pulse Resp BP BP Pulse Ox 01/04/20 16:00 98.4 F 63 18 122/77 96 01/04/20 11:35 98.5 F 63 14 109/65 97 01/04/20 08:00 97.7 F 65 16 120/70 100 01/04/20 07:55 103/57 L Weight Admit Weight 199 lb Weight 188 lb 0.992 oz I&O: 01/03/20 01/04/20 01/05/20 06:59 06:59 06:59 Intake Total 1780 2280 120 Output Total 714 669 1478 Balance 1155 1830 -2610 Result Diagrams: 01/04/20 04:52 01/04/20 04:52 Additional Labs: Accuchecks 01/04/20 01/04/20 01/03/20 16:47 11:37 20:23 POC Glucose 144 H 254 H 145 H Labs and MARs reviewed by mt Hospitalist ROS - Review of Systems Respiratory: denies: cough, shortness of breath, SOB with excertion, pleuritic pain, wheezing Cardiovascular: denies: chest pain, palpitations, orthopnea, paroxysmal noc. dyspnea, edema, light headedness Gastrointestinal: denies: nausea, vomiting, abdominal pain, diarrhea, constipation - Medication Medications: Active Medications Generic Name Dose Route Start Last Admin Trade Name Freq PRN Reason Stop Dose Admin Hydrocodone Bitart/Acetaminophen 1 tab 12/28/19 19:07 01/04/20 15:18 [place] 5/325 PO 1 tab Q4H PRN Administration Moderate Pain (4-6) Bumetanide 1 mg 01/03/20 09:00 01/04/20 07:59 Bumex PO 1 mg DAILY NEVA Administration Carvedilol 6.25 mg 12/28/19 21:00 01/04/20 07:55 Coreg PO Not Given BID NEVA Enoxaparin Sodium 40 mg 01/04/20 09:00 01/04/20 08:46 Lovenox SC 40 mg 0900 NEVA Administration Insulin Human Lispro 0 units 12/28/19 19:07 01/04/20 11:38 Humalog SC 6 unit .MODERATE SLIDING SC PRN Administration Moderate Correctional Scale Morphine Sulfate 2 mg 01/03/20 09:52 01/04/20 16:49 Morphine SLOW IVP 2 mg Q2H PRN Administration Mild Pain (1-3) Morphine Sulfate 4 mg 01/03/20 09:52 01/04/20 03:19 Morphine SLOW IVP 4 mg Q2H PRN Administration Moderate Pain (4-6) Neomycin Sulfate 1,000 mg 01/02/20 11:00 01/04/20 18:24 Neomycin Sulfate PO 1,000 mg Q8H NEVA Administration Pantoprazole Sodium 40 mg 01/01/20 09:00 01/04/20 07:58 Protonix IVP 40 mg DAILY NEVA Administration Potassium Chloride 40 meq 01/03/20 08:00 01/04/20 07:59 K-Dur PO 40 meq QAM-WM NEVA Administration Rosuvastatin Calcium 5 mg 12/29/19 09:00 01/04/20 07:59 Crestor PO 5 mg DAILY NEVA Administration Sacubitril/Valsartan 1 tab 12/28/19 21:00 01/04/20 07:59 Entresto 49 Mg-51 Mg Tablet PO 1 tab BID NEVA Administration Sodium Chloride 10 ml 01/03/20 09:52 01/04/20 07:16 Flush - Normal Saline IVF 10 ml PRN PRN Administration Saline Flush - Exam General Appearance: awake alert Eye: anicteric sclera ENT: moist mucosa Neck: supple Heart: RRR Respiratory: CTAB, no rales Gastrointestinal: soft, non-tender Gastrointestinal - other findings: abdo wall dressing Skin: no rashes Psychiatric: normal affect, normal behavior Hosp A/P - Plan Hosp A/P - Assessment (1) Colonic mass Code(s): K63.89 - OTHER SPECIFIED DISEASES OF INTESTINE Status: Acute (2) Afib Code(s): I48.91 - UNSPECIFIED ATRIAL FIBRILLATION Status: Chronic Qualifiers: Atrial fibrillation type: paroxysmal Qualified Code(s): I48.0 - Paroxysmal atrial fibrillation (3) DM type 2 (diabetes mellitus, type 2) Status: Chronic Qualifiers: Diabetes mellitus longterm insulin use: without termite exterminator use (4) Dyslipidemia Code(s): E78.5 - HYPERLIPIDEMIA, UNSPECIFIED Status: Chronic (5) HTN (hypertension) Code(s): I10 - ESSENTIAL (PRIMARY) HYPERTENSION Status: Chronic Qualifiers: Hypertension type: essential hypertension Qualified Code(s): I10 - Essential (primary) hypertension (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 - PERSONAL HISTORY OF POLIOMYELITIS Status: Chronic (7) Alcohol abuse Code(s): F10.10 - ALCOHOL ABUSE, UNCOMPLICATED Status: Chronic (8) Hyponatremia Code(s): E87.1 - HYPO-OSMOLALITY AND HYPONATREMIA Status: Chronic (9) Acute blood loss anemia Code(s): D62 - ACUTE POSTHEMORRHAGIC ANEMIA Status: Resolved (10) GI bleed Code(s): K92.2 - GASTROINTESTINAL HEMORRHAGE, UNSPECIFIED Status: Resolved Qualifiers: GI bleed type/associated pathology: unspecified gastrointestinal hemorrhage type Qualified Code(s): K92.2 - Gastrointestinal hemorrhage, unspecified (11) Acute exacerbation of CHF (congestive heart failure) Code(s): I50.9 - HEART FAILURE, UNSPECIFIED Status: Resolved Qualifiers: Heart failure type: combined systolic and diastolic Qualified Code(s): I50.43 - Acute on chronic combined systolic (congestive) and diastolic ( congestive) heart failure - Plan s/p surgery yesterday for rectosigmoid mass Hb 9.6 today HTN controlled chronic hyponatremia, stable Ambulate patient
[2020-01-05] MEDS: Morphine 4 MG/ML VIAL SLOW IVP PRN ×3 (00:15→09:46)
[2020-01-05] MEDS: Neomycin 500 mg Tablet PO SCH ×3 (02:44→18:00)
[2020-01-05] MEDS: Morphine 2 MG/ML SYRINGE SLOW IVP PRN (05:53)
[2020-01-05] MEDS: HumaLOG 300 UNITS/3 ML VIAL SC PRN ×3 (05:54→16:31)
[2020-01-05] MEDS: Rosuvastatin 5 MG TAB PO SCH (08:18)
[2020-01-05] MEDS: Tamsulosin HCl 0.4 MG CAP PO SCH (08:19)
[2020-01-05] MEDS: Carvedilol 6.25 MG TAB PO SCH ×2 (08:19→20:30)
[2020-01-05] MEDS: Potassium Chloride 20 MEQ TAB PO SCH (08:19)
[2020-01-05] MEDS: HYDROcodone/Acetaminophen 5/325 mg Tablet PO PRN (08:19)
[2020-01-05] MEDS: Bumetanide 1 MG TAB PO SCH (08:20)
[2020-01-05] MEDS: Pantoprazole 40 MG VIAL IVP SCH (08:20)
[2020-01-05] MEDS: Sacubitril 49 MG/Valsartan 51 MG TABLET PO SCH ×2 (08:20→20:30)
[2020-01-05] MEDS: Enoxaparin Sodium 40 MG/0.4 ML SYRINGE SC SCH (08:20)
[2020-01-05] MEDS ORDERED: HYDROcodone/Acetaminophen 10/325 mg Tablet PO PRN (09:12)
--- NOTE | 2020-01-05 09:32 | PRG ---
DATE OF SERVICE: 01/05/2020 SUBJECTIVE: The patient reports that he has quite a bit of pain. The morphine last very long. He denies any nausea or vomiting. He is tolerating clear liquids well, but he has not passed any gas or bowel movement yet. He had to be re-catheterized. He has been having urinary retention. Intraoperatively, it was also noted that his ureters were both dilated, which suggest chronic obstruction such as prostate. PHYSICAL EXAMINATION: VITAL SIGNS: On exam, his temperature is 98.5, pulse rate 70, and blood pressure 128/75. LUNGS: Clear. HEART: Regular rate and rhythm. ABDOMEN: Obese, soft, and nontender. The wound has a Prevena VAC on. No evidence of infection. ASSESSMENT: Doing well. PLAN: We will try full liquids. We will try oral pain medicine. Job ID: [id number]
[2020-01-05 11:13] LABS: Anion Gap 12 mmol/L (10-20); BUN (Urea Nitrogen) 9 mg/dL (8.4-25.7); Calc. Creatinine Clearance 92 mL/min (70-130); Calcium 7.9 mg/dL (7.8-10.44); Carbon Dioxide 23 mmol/L (23-31); Chloride 98 mmol/L (98-107); Estimated GFR-MDRD 82; Glucose 185 mg/dL (80-115); Potassium 3.9 mmol/L (3.5-5.1); Sodium 129 mmol/L (136-145)
[2020-01-05] MEDS: HYDROcodone/Acetaminophen 10/325 mg Tablet PO PRN ×3 (12:20→20:31)
--- NOTE | 2020-01-05 17:48 | PDOC.HOSPP ---
- Subjective Encounter Date: 01/05/20 Encounter Time: 08:20 Subjective: Pt seen for followup re: colon tumor. Had pain today. No nausea. Tolerating fluids. - Objective Vital Signs & Weight: Vital Signs (12 hours) Temp Pulse Resp BP BP Pulse Ox 01/05/20 15:26 97.9 F 65 16 107/66 96 01/05/20 11:48 97.6 F 76 16 115/63 96 01/05/20 08:19 128/75 98 01/05/20 07:05 98.5 F 70 16 128/75 98 Weight Admit Weight 199 lb Weight 189 lb 8 oz I&O: 01/04/20 01/05/20 01/06/20 06:59 06:59 06:59 Intake Total 2280 600 Output Total 450 3455 Balance 1830 -2855 Result Diagrams: 01/04/20 04:52 01/05/20 10:36 Additional Labs: Accuchecks 01/05/20 01/05/20 01/05/20 14:45 11:19 05:57 POC Glucose 171 H 234 H 163 H 01/04/20 01/04/20 20:57 16:47 POC Glucose 225 H 144 H Labs and MARs reviewed by id Hospitalist ROS - Review of Systems Gastrointestinal: reports: abdominal pain. denies: nausea, vomiting, diarrhea, constipation, melena, hematochezia Genitourinary: reports: retention. denies: dysuria, frequency, incontinence, hematuria - Medication Medications: Active Medications Generic Name Dose Route Start Last Admin Trade Name Freq PRN Reason Stop Dose Admin Acetaminophen 650 mg 12/28/19 19:07 01/04/20 20:54 Tylenol PO 650 mg Q4H PRN Administration Headache/Fever/Mild Pain (1-3) Hydrocodone Bitart/Acetaminophen 2 tab 01/05/20 09:12 01/05/20 16:30 [place] 10/325 PO 2 tab Q4H PRN Administration Moderate to Severe Pain (6-10) Bumetanide 1 mg 01/03/20 09:00 01/05/20 08:20 Bumex PO 1 mg DAILY NEVA Administration Carvedilol 6.25 mg 12/28/19 21:00 01/05/20 08:19 Coreg PO 6.25 mg BID NEVA Administration Enoxaparin Sodium 40 mg 01/04/20 09:00 01/05/20 08:20 Lovenox SC 40 mg 0900 NEVA Administration Insulin Human Lispro 0 units 12/28/19 19:07 01/05/20 16:31 Humalog SC 2 unit .MODERATE SLIDING SC PRN Administration Moderate Correctional Scale Morphine Sulfate 2 mg 01/03/20 09:52 01/05/20 05:53 Morphine SLOW IVP 2 mg Q2H PRN Administration Mild Pain (1-3) Morphine Sulfate 4 mg 01/03/20 09:52 01/05/20 09:46 Morphine SLOW IVP 4 mg Q2H PRN Administration Moderate Pain (4-6) Neomycin Sulfate 1,000 mg 01/02/20 11:00 01/05/20 10:57 Neomycin Sulfate PO 1,000 mg Q8H NEVA Administration Pantoprazole Sodium 40 mg 01/01/20 09:00 01/05/20 08:20 Protonix IVP 40 mg DAILY NEVA Administration Potassium Chloride 40 meq 01/03/20 08:00 01/05/20 08:19 K-Dur PO 40 meq QAM-WM NEVA Administration Rosuvastatin Calcium 5 mg 12/29/19 09:00 01/05/20 08:18 Crestor PO 5 mg DAILY NEVA Administration Sacubitril/Valsartan 1 tab 12/28/19 21:00 01/05/20 08:20 Entresto 49 Mg-51 Mg Tablet PO 1 tab BID NEVA Administration Sodium Chloride 10 ml 01/03/20 09:52 01/04/20 07:16 Flush - Normal Saline IVF 10 ml PRN PRN Administration Saline Flush Tamsulosin HCl 0.4 mg 01/05/20 09:00 01/05/20 08:19 Flomax PO 0.4 mg DAILY NEVA Administration - Exam General Appearance: awake alert Eye: anicteric sclera ENT: moist mucosa Neck: supple Heart: RRR Respiratory: CTAB Gastrointestinal: soft, non-tender Extremities: no cyanosis Musculoskeletal: no muscle wasting Psychiatric: normal affect, normal behavior Hosp A/P - Plan Hosp A/P - Assessment (1) Colonic mass Code(s): K63.89 - OTHER SPECIFIED DISEASES OF INTESTINE Status: Acute (2) Afib Code(s): I48.91 - UNSPECIFIED ATRIAL FIBRILLATION Status: Chronic Qualifiers: Atrial fibrillation type: paroxysmal Qualified Code(s): I48.0 - Paroxysmal atrial fibrillation (3) DM type 2 (diabetes mellitus, type 2) Status: Chronic Qualifiers: Diabetes mellitus termite exterminator insulin use: without penitentiary use (4) Dyslipidemia Code(s): E78.5 - HYPERLIPIDEMIA, UNSPECIFIED Status: Chronic (5) HTN (hypertension) Code(s): I10 - ESSENTIAL (PRIMARY) HYPERTENSION Status: Chronic Qualifiers: Hypertension type: essential hypertension Qualified Code(s): I10 - Essential (primary) hypertension (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 - PERSONAL HISTORY OF POLIOMYELITIS Status: Chronic (7) Alcohol abuse Code(s): F10.10 - ALCOHOL ABUSE, UNCOMPLICATED Status: Chronic (8) Hyponatremia Code(s): E87.1 - HYPO-OSMOLALITY AND HYPONATREMIA Status: Chronic (9) Acute blood loss anemia Code(s): D62 - ACUTE POSTHEMORRHAGIC ANEMIA Status: Resolved (10) GI bleed Code(s): K92.2 - GASTROINTESTINAL HEMORRHAGE, UNSPECIFIED Status: Resolved Qualifiers: GI bleed type/associated pathology: unspecified gastrointestinal hemorrhage type Qualified Code(s): K92.2 - Gastrointestinal hemorrhage, unspecified (11) Acute exacerbation of CHF (congestive heart failure) Code(s): I50.9 - HEART FAILURE, UNSPECIFIED Status: Resolved Qualifiers: Heart failure type: combined systolic and diastolic Qualified Code(s): I50.43 - Acute on chronic combined systolic (congestive) and diastolic ( congestive) heart failure - Plan s/p surgery for sigmoid mass HTN controlled chronic hyponatremia, stable Ambulate patient Check AM labs.
--- NOTE | 2020-01-05 18:31 | PRG ---
DATE OF SERVICE: 01/05/2020 SUBJECTIVE: A 69-year-old gentleman being seen for hyponatremia. The patient denied nausea, vomiting, or chest pain. OBJECTIVE: GENERAL: The patient is awake and alert. VITAL SIGNS: Afebrile, pulse 75, breathing at 16, blood pressure 107/66. HEENT: Head normocephalic and atraumatic. Eyes intact, no ulcers. Nose intact, no ulcers. Ears intact, no ulcers. NECK: Supple. No JVD. CHEST: Symmetrical and clear. CARDIOVASCULAR: Shows S1 and S2, no rub, no murmur. GASTROINTESTINAL: Abdomen is soft, bowel sounds positive. EXTREMITIES: Show no edema or ulcers. SKIN: Shows no rash or petechiae. MUSCULOSKELETAL: Shows no joint swelling or stiffness. GENITOURINARY: Shows no Eaton or CVA tenderness. NEUROLOGIC: Motor intact. Cranial nerves intact. LABORATORY DATA: Hemoglobin 8.1. Creatinine 0.9. ASSESSMENT AND RECOMMENDATIONS: 1. Chronic kidney disease, stage 3, stable. 2. Hyponatremia, improved. 3. Medication based on GFR, appropriate. I will sign off on this patient. Continue fluid restriction. Job ID: [id number]
[2020-01-06] MEDS: HYDROcodone/Acetaminophen 10/325 mg Tablet PO PRN ×6 (00:25→21:42)
--- NOTE | 2020-01-06 01:44 | CON ---
DATE OF CONSULTATION: 01/05/2020 REASON FOR CONSULTATION: Postoperative urinary retention. HISTORY OF PRESENT ILLNESS: Mr. Aguilar is a 69-year-old gentleman, who presented to the hospital on 12/28/2019 for anemia. He was undergoing routine evaluation by his primary care physician, Dr. Leobardo Henry when he was noted to have a hemoglobin of 6.1, and was referred to the emergency room for further evaluation and management. Since admission, he has been diagnosed with a rectosigmoid mass. He underwent low anterior resection in conjunction with repair of a previously repaired ventral hernia on 01/03/[address] Ambrose Zamora MD. Since then, he has had difficulty voiding. He was catheterized on 01/04/2020 for residual of 800 mL. After the catheter was removed, he again developed urinary retention. His Eaton catheter was left in place. The patient has no prior urologic history. He does admit to daytime frequency approximately every 2 hours and nocturia 2 times per night. Denies any dysuria or hematuria. He has been on no urologic medications as an outpatient. His ureters were noted to be dilated at the time of his surgery, but admission CT scan demonstrated no hydronephrosis and his kidney function has been normal throughout his hospitalization. PAST MEDICAL HISTORY: Atrial fibrillation, history of congestive heart failure, type 2 diabetes mellitus, dyslipidemia, gastroesophageal reflux disease, history of polio with left lower extremity paralysis, although he does ambulate with a brace. PAST SURGICAL HISTORY: Low anterior resection, repair of ventral hernia on 01/03/2020, AICD pacemaker placement, coronary artery catheterization, ventral hernia repair. CHRONIC MEDICATIONS: Include Entresto 24/26 twice daily, doxycycline for some skin lesions, Coreg 6.25 mg b.i.d., metolazone 5 mg daily, rosuvastatin 5 mg daily, Janumet mg twice daily, Eliquis 5 mg twice daily. ALLERGIES: PRADAXA CAUSES A RASH. LASIX CAUSES A RASH. PENICILLIN, ANAPHYLAXIS, COUMADIN, WEAKNESS, DIZZINESS AND DIARRHEA. SOCIAL HISTORY: He does drink 2 to 4 beers on a daily basis. Denies alcohol use or smoking. FAMILY HISTORY: Significant for his father living to the age of 89. His mother of natural causes at the age of 70. REVIEW OF SYSTEMS: GENERAL: The patient feels well overall now, although he was becoming weak prior to his hospitalization. HEENT: He denies double vision. RESPIRATORY: Denies shortness of breath or wheezing. CARDIOVASCULAR: Denies chest pain or palpitations. GASTROINTESTINAL: Several weeks history of melena prior to admission. GENITOURINARY: Please see history of present illness. MUSCULOSKELETAL: Left-sided paralysis from polio. PHYSICAL EXAMINATION: GENERAL: He is a healthy-appearing gentleman, who appears younger than his stated age. VITAL SIGNS: Temperature 97.9, blood pressure 107/66, pulse 65, O2 saturation 96% on room air. HEENT: Normocephalic, atraumatic. NECK: Supple. No masses. CHEST: Clear to auscultation. CARDIOVASCULAR: Regular rhythm. ABDOMEN: Soft. There are no peritoneal signs. He has a lower abdominal incision without evidence of infection. GENITOURINARY: Eaton catheter is in place. Testicles, no palpable lesions. Penis normal. Digital rectal exam deferred at this time and will be performed in the office as an outpatient. EXTREMITIES: Mild edema bilaterally. LABORATORY DATA: Hemoglobin 8.1, creatinine less than 1.0. CT scan 12/31/2019, normal kidneys without suspicious lesions and without hydronephrosis. No obvious metastatic disease. Recently diagnosed colon cancer. IMPRESSION: Mr. Aguilar has developed postoperative urinary retention. He has no prior urologic history, although he has symptoms prior to admission that included urinary frequency and nocturia two times per night. He states that his stream was typically good. He has been started on Flomax. He has a Eaton catheter in place at this time. I recommend that Eaton catheter be left in place for approximately 1 week, at which time a voiding trial will be performed. Flomax should be continued while in the hospital and post discharge. We will make arrangements for him to follow up in our office for voiding trial and further management if retention persists. This will be arranged for approximately 1 week. He should be discharged home with this Eaton catheter in place. Job ID: [id number]
[2020-01-06] MEDS: Neomycin 500 mg Tablet PO SCH ×2 (03:15→11:06)
[2020-01-06] MEDS: HumaLOG 300 UNITS/3 ML VIAL SC PRN ×2 (05:40→12:23)
[2020-01-06 06:17] LABS: #Eosinphils 0.6 thou/uL (0.0-0.7); #Lymphocytes 0.6 thou/uL (1.20-3.40); #Monocytes 0.9 thou/uL (0.11-0.59); #Neutrophils 4.8 thou/uL (1.40-6.50); %Basophils 0.5 % (0.0-1.0); %Eosinophils 8.3 % (0.0-10.0); %Lymphocytes 9.1 % (21.0-51.0); %Monocytes 12.6 % (0.0-10.0); %Neutrophils 69.4 % (42.0-75.0); Hemoglobin 7.9 g/dL (14.0-18.0); Mean Corpuscular HGB CONC 28.9 g/dL (32.0-36.0); Mean Corpuscular Hemoglobin 19.8 pg (27.0-31.0); Mean Corpuscular Volume 68.7 fL (78.0-98.0); Mean Platelet Volume 11.1 fL (7.4-10.4); Platelet Count 312 thou/uL (130-400); RBC Distribution Width 24.1 % (11.5-14.5); White Blood Cell (WBC) Count 6.9 thou/uL (4.8-10.8)
[2020-01-06 06:35] LABS: Anion Gap 12 mmol/L (10-20); BUN (Urea Nitrogen) 9 mg/dL (8.4-25.7); Calc. Creatinine Clearance 102 mL/min (70-130); Calcium 8.1 mg/dL (7.8-10.44); Carbon Dioxide 25 mmol/L (23-31); Chloride 95 mmol/L (98-107); Estimated GFR-MDRD Greater than 90; Glucose 126 mg/dL (80-115); Potassium 4.2 mmol/L (3.5-5.1); Sodium 128 mmol/L (136-145)
[2020-01-06] MEDS: Enoxaparin Sodium 40 MG/0.4 ML SYRINGE SC SCH (08:43)
[2020-01-06] MEDS: Bumetanide 1 MG TAB PO SCH (08:43)
[2020-01-06] MEDS: Potassium Chloride 20 MEQ TAB PO SCH (08:43)
[2020-01-06] MEDS: Rosuvastatin 5 MG TAB PO SCH (08:43)
[2020-01-06] MEDS: Sacubitril 49 MG/Valsartan 51 MG TABLET PO SCH ×2 (08:43→21:29)
--- NOTE | 2020-01-06 08:46 | PRG ---
DATE OF SERVICE: 01/06/2020 SUBJECTIVE: The patient reports very minimal pain. No nausea or vomiting. He is tolerating full liquids. He is passing flatus. No bowel movement yet. OBJECTIVE: VITAL SIGNS: On exam, temperature 98.8, pulse 72, and blood pressure 118/72. GENERAL: He is awake and alert. ABDOMEN: Soft. It is little distended. The incision has a tiny bit of drainage on the lower aspect of the dressing. LABORATORY DATA: His white count is 6.9, H and H of 7.9 and 27.5, and platelet count 312. His sodium is 128. PLAN: Hep-Lock IV. Ambulate. Job ID: [id number]
[2020-01-06] MEDS: Pantoprazole 40 MG VIAL IVP SCH (08:48)
[2020-01-06] MEDS: Tamsulosin HCl 0.4 MG CAP PO SCH (08:48)
[2020-01-06] MEDS: Carvedilol 6.25 MG TAB PO SCH ×2 (08:48→21:29)
--- NOTE | 2020-01-06 13:14 | PRG ---
DATE OF SERVICE: 01/06/2020 SUBJECTIVE: A 69-year-old male, being seen for hyponatremia. The patient denies any nausea, vomiting, or chest pain. OBJECTIVE: GENERAL: The patient is awake and alert. VITAL SIGNS: Afebrile, pulse 75, breathing at 16, blood pressure 122/52. HEENT: Head normocephalic and atraumatic. Eyes intact, no ulcers. Nose intact, no ulcers. Ears intact, no ulcers. NECK: Supple. No JVD. CHEST: Symmetrical and clear. CARDIOVASCULAR: Shows S1 and S2, no rub, no murmur. GASTROINTESTINAL: Abdomen is soft, bowel sounds positive. EXTREMITIES: Show no edema or ulcers. SKIN: Shows no rash or petechiae. MUSCULOSKELETAL: Shows no joint swelling or stiffness. GENITOURINARY: Shows no Eaton or CVA tenderness. NEUROLOGIC: Motor intact. Cranial nerves intact. LABORATORY DATA: Show hemoglobin 7.9. Sodium is 128. ASSESSMENT AND RECOMMENDATIONS: 1. Hyponatremia due to syndrome of inappropriate antidiuretic hormone secretion. Recommend fluid restriction. 2. Hypertension, stable. 3. Anemia, stable. 4. Medication based on GFR, appropriate. Job ID: [id number]
--- NOTE | 2020-01-06 14:50 | PDOC.HOSPP ---
- Subjective Encounter Date: 01/06/20 Encounter Time: 19:00 Subjective: Pt seen for followup re: sigmoid colon mass. No complaints today. - Objective Vital Signs & Weight: Vital Signs (12 hours) Temp Pulse Resp BP BP Pulse Ox 01/06/20 11:22 98.1 F 57 L 16 122/52 L 96 01/06/20 08:48 119/56 L 97 01/06/20 08:00 98.1 F 63 14 119/56 L 97 01/06/20 03:58 98.8 F 72 16 118/72 97 Weight Admit Weight 199 lb Weight 191 lb 2 oz I&O: 01/05/20 01/06/20 01/07/20 06:59 06:59 06:59 Intake Total 600 1480 Output Total 3455 2600 Balance -4720 -2427 Result Diagrams: 01/07/20 05:16 01/07/20 05:16 Additional Labs: Accuchecks 01/06/20 01/06/20 01/05/20 11:23 05:36 20:37 POC Glucose 165 H 152 H 184 H 01/05/20 14:45 POC Glucose 171 H Labs and MARs reviewed by ok Hospitalist ROS - Review of Systems Respiratory: denies: cough, dry, shortness of breath, hemoptysis, SOB with excertion, pleuritic pain, sputum, wheezing Gastrointestinal: denies: nausea, vomiting, abdominal pain - Medication Medications: Active Medications Generic Name Dose Route Start Last Admin Trade Name Freq PRN Reason Stop Dose Admin Acetaminophen 650 mg 12/28/19 19:07 01/04/20 20:54 Tylenol PO 650 mg Q4H PRN Administration Headache/Fever/Mild Pain (1-3) Hydrocodone Bitart/Acetaminophen 2 tab 01/05/20 09:12 01/06/20 14:05 [place] 10/325 PO 2 tab Q4H PRN Administration Moderate to Severe Pain (6-10) Bumetanide 1 mg 01/03/20 09:00 01/06/20 08:43 Bumex PO 1 mg DAILY NEVA Administration Carvedilol 6.25 mg 12/28/19 21:00 01/06/20 08:48 Coreg PO 6.25 mg BID NEVA Administration Enoxaparin Sodium 40 mg 01/04/20 09:00 01/06/20 08:43 Lovenox SC 40 mg 0900 NEVA Administration Insulin Human Lispro 0 units 12/28/19 19:07 01/06/20 12:23 Humalog SC 2 unit .MODERATE SLIDING SC PRN Administration Moderate Correctional Scale Morphine Sulfate 2 mg 01/03/20 09:52 01/05/20 05:53 Morphine SLOW IVP 2 mg Q2H PRN Administration Mild Pain (1-3) Morphine Sulfate 4 mg 01/03/20 09:52 01/05/20 09:46 Morphine SLOW IVP 4 mg Q2H PRN Administration Moderate Pain (4-6) Neomycin Sulfate 1,000 mg 01/02/20 11:00 01/06/20 11:06 Neomycin Sulfate PO 1,000 mg Q8H NEVA Administration Pantoprazole Sodium 40 mg 01/01/20 09:00 01/06/20 08:48 Protonix IVP 40 mg DAILY NEVA Administration Potassium Chloride 40 meq 01/03/20 08:00 01/06/20 08:43 K-Dur PO 40 meq QAM-WM NEVA Administration Rosuvastatin Calcium 5 mg 12/29/19 09:00 01/06/20 08:43 Crestor PO 5 mg DAILY NEVA Administration Sacubitril/Valsartan 1 tab 12/28/19 21:00 01/06/20 08:43 Entresto 49 Mg-51 Mg Tablet PO 1 tab BID NEVA Administration Sodium Chloride 10 ml 01/03/20 09:52 01/04/20 07:16 Flush - Normal Saline IVF 10 ml PRN PRN Administration Saline Flush Tamsulosin HCl 0.4 mg 01/05/20 09:00 01/06/20 08:48 Flomax PO 0.4 mg DAILY NEVA Administration - Exam General Appearance: awake alert Eye: anicteric sclera ENT: normocephalic atraumatic Neck: supple, symmetric Heart: RRR Respiratory: CTAB Gastrointestinal: soft, non-tender Extremities: no cyanosis Psychiatric: normal affect, normal behavior Hosp A/P - Plan Hosp A/P - Assessment (1) Colonic mass Code(s): K63.89 - OTHER SPECIFIED DISEASES OF INTESTINE Status: Acute (2) Afib Code(s): I48.91 - UNSPECIFIED ATRIAL FIBRILLATION Status: Chronic Qualifiers: Atrial fibrillation type: paroxysmal Qualified Code(s): I48.0 - Paroxysmal atrial fibrillation (3) DM type 2 (diabetes mellitus, type 2) Status: Chronic Qualifiers: Diabetes mellitus mcfp insulin use: without medical terminologist use (4) Dyslipidemia Code(s): E78.5 - HYPERLIPIDEMIA, UNSPECIFIED Status: Chronic (5) HTN (hypertension) Code(s): I10 - ESSENTIAL (PRIMARY) HYPERTENSION Status: Chronic Qualifiers: Hypertension type: essential hypertension Qualified Code(s): I10 - Essential (primary) hypertension (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 - PERSONAL HISTORY OF POLIOMYELITIS Status: Chronic (7) Alcohol abuse Code(s): F10.10 - ALCOHOL ABUSE, UNCOMPLICATED Status: Chronic (8) Hyponatremia Code(s): E87.1 - HYPO-OSMOLALITY AND HYPONATREMIA Status: Chronic (9) Acute blood loss anemia Code(s): D62 - ACUTE POSTHEMORRHAGIC ANEMIA Status: Resolved (10) GI bleed Code(s): K92.2 - GASTROINTESTINAL HEMORRHAGE, UNSPECIFIED Status: Resolved Qualifiers: GI bleed type/associated pathology: unspecified gastrointestinal hemorrhage type Qualified Code(s): K92.2 - Gastrointestinal hemorrhage, unspecified (11) Acute exacerbation of CHF (congestive heart failure) Code(s): I50.9 - HEART FAILURE, UNSPECIFIED Status: Resolved Qualifiers: Heart failure type: combined systolic and diastolic Qualified Code(s): I50.43 - Acute on chronic combined systolic (congestive) and diastolic ( congestive) heart failure - Plan Improving s/p surgery HTN controlled chronic hyponatremia, stable Ambulate patient Pathology report noted - adenoCA with clear margins and clear lymph nodes
[2020-01-07 05:46] LABS: #Eosinphils 0.7 thou/uL (0.0-0.7); #Lymphocytes 0.6 thou/uL (1.20-3.40); #Monocytes 0.7 thou/uL (0.11-0.59); #Neutrophils 3.4 thou/uL (1.40-6.50); %Basophils 0.6 % (0.0-1.0); %Eosinophils 13.1 % (0.0-10.0); %Lymphocytes 10.2 % (21.0-51.0); %Monocytes 13.7 % (0.0-10.0); %Neutrophils 62.3 % (42.0-75.0); Hemoglobin 8.1 g/dL (14.0-18.0); Mean Corpuscular HGB CONC 29.5 g/dL (32.0-36.0); Mean Corpuscular Hemoglobin 20.1 pg (27.0-31.0); Mean Corpuscular Volume 68.2 fL (78.0-98.0); Mean Platelet Volume 11.1 fL (7.4-10.4); Platelet Count 304 thou/uL (130-400); RBC Distribution Width 24.3 % (11.5-14.5); White Blood Cell (WBC) Count 5.4 thou/uL (4.8-10.8)
[2020-01-07 05:53] LABS: Anion Gap 13 mmol/L (10-20); BUN (Urea Nitrogen) 9 mg/dL (8.4-25.7); Calc. Creatinine Clearance 101 mL/min (70-130); Calcium 8.3 mg/dL (7.8-10.44); Carbon Dioxide 29 mmol/L (23-31); Chloride 92 mmol/L (98-107); Estimated GFR-MDRD 89; Glucose 124 mg/dL (80-115); Sodium 130 mmol/L (136-145)
[2020-01-07] MEDS: HYDROcodone/Acetaminophen 10/325 mg Tablet PO PRN ×2 (05:59→18:27)
[2020-01-07] MEDS: Sacubitril 49 MG/Valsartan 51 MG TABLET PO SCH ×2 (08:38→21:15)
[2020-01-07] MEDS: Bumetanide 1 MG TAB PO SCH (08:38)
[2020-01-07] MEDS: Tamsulosin HCl 0.4 MG CAP PO SCH (08:39)
[2020-01-07] MEDS: Carvedilol 6.25 MG TAB PO SCH ×2 (08:39→21:15)
[2020-01-07] MEDS: Rosuvastatin 5 MG TAB PO SCH (08:39)
[2020-01-07] MEDS: Potassium Chloride 20 MEQ TAB PO SCH (08:40)
[2020-01-07] MEDS: Pantoprazole 40 MG VIAL IVP SCH (08:40)
[2020-01-07] MEDS: Enoxaparin Sodium 40 MG/0.4 ML SYRINGE SC SCH (08:41)
--- NOTE | 2020-01-07 09:19 | PRG ---
DATE OF SERVICE: 01/07/2020 SUBJECTIVE: A 69-year-old gentleman, being seen for hyponatremia. The patient denied nausea, vomiting, or chest pain. OBJECTIVE: GENERAL: The patient is awake and alert. VITAL SIGNS: Afebrile. Pulse 75, breathing at 16, blood pressure 145/75. HEENT: Head normocephalic and atraumatic. Eyes intact, no ulcers. Nose intact, no ulcers. Ears intact, no ulcers. NECK: Supple. No JVD. CHEST: Symmetrical and clear. CARDIOVASCULAR: Shows S1 and S2, no rub, no murmur. GASTROINTESTINAL: Abdomen is soft, bowel sounds positive. EXTREMITIES: Show no edema or ulcers. SKIN: Shows no rash or petechiae. MUSCULOSKELETAL: Shows no joint swelling or stiffness. GENITOURINARY: Shows no Eaton or CVA tenderness. NEUROLOGIC: Motor intact. Cranial nerves intact. LABORATORY DATA: Hemoglobin 8.1. Sodium 130. ASSESSMENT AND PLAN: 1. Hyponatremia, improved. 2. Medication based on GFR, appropriate. 3. I would recommend 800 mL of fluid restriction. I will sign off. Please reconsult as needed. Job ID: [id number]
--- NOTE | 2020-01-07 10:01 | PRG ---
DATE OF SERVICE: 01/07/2020 SUBJECTIVE: The patient says his pain is minimal. He is passing a lot of gas. He is tolerating full liquids well. No nausea or vomiting. OBJECTIVE: VITAL SIGNS: His temperature is 98.1, pulse 60, and blood pressure 145/75. GENERAL: He is awake and alert. ABDOMEN: Soft. There is really no significant tenderness. SKIN: The wound was inspected. There was a little bit of serosanguineous drainage from the central portion. The wound VAC was removed, this was not removing that. A clean gauze was applied. LABORATORY DATA: His white count is 5.4, H/H of 8.1 and 27, and platelet count is 304. Sodium 130, potassium 4, chloride 92, and glucose 124. ASSESSMENT: Stable. PLAN: We will do a fiber restricted soft diet. Hopefully, ambulating more, but he does have polio. Hopefully, he will have a bowel movement at discharge. Job ID: [id number]
--- NOTE | 2020-01-07 18:20 | PDOC.HOSPP ---
- Subjective Encounter Date: 01/07/20 Encounter Time: 08:40 Subjective: Pt seen for followup for: colon cancer. Feels better today. - Objective Vital Signs & Weight: Vital Signs (12 hours) Temp Pulse Resp BP BP Pulse Ox 01/07/20 16:14 98.1 F 69 14 112/65 95 01/07/20 12:05 97.7 F 62 16 119/73 96 01/07/20 08:39 145/75 H 01/07/20 08:38 98.1 F 60 14 145/75 H 97 01/07/20 08:00 97 Weight Admit Weight 199 lb Weight 188 lb I&O: 01/06/20 01/07/20 01/08/20 06:59 06:59 06:59 Intake Total 1480 1165 500 Output Total 2600 2900 400 Balance -1120 -1735 100 Result Diagrams: 01/07/20 05:16 01/07/20 05:16 Additional Labs: Accuchecks 01/07/20 01/07/20 01/06/20 14:49 10:47 19:59 POC Glucose 175 H 158 H 163 H Labs and MARs reviewed by nm Hospitalist ROS - Review of Systems Constitutional: denies: fever, chills, sweats, weakness, malaise Respiratory: denies: cough, shortness of breath, SOB with excertion, pleuritic pain, wheezing - Medication Medications: Active Medications Generic Name Dose Route Start Last Admin Trade Name Freq PRN Reason Stop Dose Admin Acetaminophen 650 mg 12/28/19 19:07 01/04/20 20:54 Tylenol PO 650 mg Q4H PRN Administration Headache/Fever/Mild Pain (1-3) Hydrocodone Bitart/Acetaminophen 2 tab 01/05/20 09:12 01/07/20 05:59 [place] 10/325 PO 2 tab Q4H PRN Administration Moderate to Severe Pain (6-10) Carvedilol 6.25 mg 12/28/19 21:00 01/07/20 08:39 Coreg PO 6.25 mg BID NEVA Administration Enoxaparin Sodium 40 mg 01/04/20 09:00 01/07/20 08:41 Lovenox SC 40 mg 0900 NEVA Administration Insulin Human Lispro 0 units 12/28/19 19:07 01/06/20 12:23 Humalog SC 2 unit .MODERATE SLIDING SC PRN Administration Moderate Correctional Scale Morphine Sulfate 2 mg 01/03/20 09:52 01/05/20 05:53 Morphine SLOW IVP 2 mg Q2H PRN Administration Mild Pain (1-3) Morphine Sulfate 4 mg 01/03/20 09:52 01/05/20 09:46 Morphine SLOW IVP 4 mg Q2H PRN Administration Moderate Pain (4-6) Pantoprazole Sodium 40 mg 01/01/20 09:00 01/07/20 08:40 Protonix IVP 40 mg DAILY NEVA Administration Potassium Chloride 40 meq 01/03/20 08:00 01/07/20 08:40 K-Dur PO 40 meq QAM-WM NEVA Administration Rosuvastatin Calcium 5 mg 12/29/19 09:00 01/07/20 08:39 Crestor PO 5 mg DAILY NEVA Administration Sacubitril/Valsartan 1 tab 12/28/19 21:00 01/07/20 08:38 Entresto 49 Mg-51 Mg Tablet PO 1 tab BID NEVA Administration Sodium Chloride 10 ml 01/03/20 09:52 01/04/20 07:16 Flush - Normal Saline IVF 10 ml PRN PRN Administration Saline Flush Tamsulosin HCl 0.4 mg 01/05/20 09:00 01/07/20 08:39 Flomax PO 0.4 mg DAILY NEVA Administration - Exam General Appearance: awake alert Eye: anicteric sclera ENT: moist mucosa Neck: supple Heart: RRR Respiratory: CTAB, no wheezes Gastrointestinal: non-tender, non-distended Skin: no rashes Psychiatric: normal affect, normal behavior Hosp A/P - Plan Hosp A/P - Assessment (1) Colonic mass Code(s): K63.89 - OTHER SPECIFIED DISEASES OF INTESTINE Status: Acute (2) DM type 2 (diabetes mellitus, type 2) Status: Chronic Qualifiers: Diabetes mellitus rn long term care insulin use: without retirement use (3) Afib Code(s): I48.91 - UNSPECIFIED ATRIAL FIBRILLATION Status: Chronic Qualifiers: Atrial fibrillation type: paroxysmal Qualified Code(s): I48.0 - Paroxysmal atrial fibrillation (4) HTN (hypertension) Code(s): I10 - ESSENTIAL (PRIMARY) HYPERTENSION Status: Chronic Qualifiers: Hypertension type: essential hypertension Qualified Code(s): I10 - Essential (primary) hypertension (5) Dyslipidemia Code(s): E78.5 - HYPERLIPIDEMIA, UNSPECIFIED Status: Chronic (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 - PERSONAL HISTORY OF POLIOMYELITIS Status: Chronic (7) Alcohol abuse Code(s): F10.10 - ALCOHOL ABUSE, UNCOMPLICATED Status: Chronic (8) Hyponatremia Code(s): E87.1 - HYPO-OSMOLALITY AND HYPONATREMIA Status: Chronic (9) Acute blood loss anemia Code(s): D62 - ACUTE POSTHEMORRHAGIC ANEMIA Status: Resolved (10) GI bleed Code(s): K92.2 - GASTROINTESTINAL HEMORRHAGE, UNSPECIFIED Status: Resolved Qualifiers: GI bleed type/associated pathology: unspecified gastrointestinal hemorrhage type Qualified Code(s): K92.2 - Gastrointestinal hemorrhage, unspecified (11) Acute exacerbation of CHF (congestive heart failure) Code(s): I50.9 - HEART FAILURE, UNSPECIFIED Status: Resolved Qualifiers: Heart failure type: combined systolic and diastolic Qualified Code(s): I50.43 - Acute on chronic combined systolic (congestive) and diastolic ( congestive) heart failure - Plan Improving clinically HTN controlled Sodium improved to 130. Pathology report - adenoCA with clear margins and clear lymph nodes Ambulate patient Pt wants to go home with , does not want to go to In Rehab.
[2020-01-07] MEDS: HumaLOG 300 UNITS/3 ML VIAL SC PRN ×2 (18:24→21:15)
[2020-01-08] MEDS: HYDROcodone/Acetaminophen 10/325 mg Tablet PO PRN ×2 (00:02→08:31)
[2020-01-08 06:26] LABS: Anion Gap 14 mmol/L (10-20); BUN (Urea Nitrogen) 10 mg/dL (8.4-25.7); Calc. Creatinine Clearance 100 mL/min (70-130); Calcium 8.3 mg/dL (7.8-10.44); Carbon Dioxide 30 mmol/L (23-31); Chloride 91 mmol/L (98-107); Estimated GFR-MDRD Greater than 90; Glucose 117 mg/dL (80-115); Potassium 3.7 mmol/L (3.5-5.1); Sodium 131 mmol/L (136-145)
[2020-01-08] MEDS: Potassium Chloride 20 MEQ TAB PO SCH (08:28)
[2020-01-08] MEDS: Rosuvastatin 5 MG TAB PO SCH (08:29)
[2020-01-08] MEDS: Carvedilol 6.25 MG TAB PO SCH (08:29)
[2020-01-08] MEDS: Sacubitril 49 MG/Valsartan 51 MG TABLET PO SCH (08:29)
[2020-01-08] MEDS: Tamsulosin HCl 0.4 MG CAP PO SCH (08:29)
[2020-01-08] MEDS: Pantoprazole 40 MG VIAL IVP SCH ×2 (08:29→11:31)
[2020-01-08 09:07] LABS: #Eosinphils 0.7 thou/uL (0.0-0.7); #Lymphocytes 0.7 thou/uL (1.20-3.40); #Monocytes 0.8 thou/uL (0.11-0.59); #Neutrophils 3.5 thou/uL (1.40-6.50); %Basophils 0.8 % (0.0-1.0); %Eosinophils 12.5 % (0.0-10.0); %Lymphocytes 11.7 % (21.0-51.0); %Monocytes 14.2 % (0.0-10.0); %Neutrophils 60.9 % (42.0-75.0); Anisocytosis SLIGHT = 6-15 cells (100X) (0-5/hpf); Hemoglobin 8.7 g/dL (14.0-18.0); MDiff Complete? YES; Mean Corpuscular HGB CONC 30.7 g/dL (32.0-36.0); Mean Corpuscular Volume 68.5 fL (78.0-98.0); Mean Platelet Volume 10.6 fL (7.4-10.4); Platelet Count 313 thou/uL (130-400); Platelet Morphology Comment Appears Adequate; Poikilocytosis SLIGHT = 6-15 cells (100X) (0-5/hpf); RBC Distribution Width 24.1 % (11.5-14.5); Red Blood Cell (RBC) Count 4.14 mill/uL (4.70-6.10); Target Cells SLIGHT = 2-5 cells (100X) (0-1/hpf); White Blood Cell (WBC) Count 5.7 thou/uL (4.8-10.8)
--- NOTE | 2020-01-08 09:56 | PRG ---
DATE OF SERVICE: 01/08/2020 SUBJECTIVE: Mr. Aguilar remains on the surgical floor. He is postoperative day #5 from open low anterior resection repair of ventral hernia. His pathology revealed an invasive adenocarcinoma with 18 negative lymph nodes. He has progressed nicely after surgery. He is tolerating his diet and had a bowel movement yesterday. He does have urinary retention, for which he is seeing Dr. Regan. Discharged with a Eaton catheter is recommended with outpatient followup with Dr. Regan. The patient has been started on Flomax. The patient has no new complaints. He is tolerating his diet and ambulating appropriately. OBJECTIVE: VITAL SIGNS: He is afebrile, pulse 63, and blood pressure 154/70. LUNGS: Clear to auscultation. ABDOMEN: Soft and nontender. Lower abdominal incision is healing nicely with haley intact. Bowel sounds present and normoactive. LABORATORY DATA: CBC is stable with a hemoglobin of 8.7 with white blood cell count of 5.7. He has minor electrolyte abnormalities with sodium and chloride that are little bit low. Kidney function is normal. ASSESSMENT: He remains stable for discharge. Apparently, home health has been arranged to help with his catheter and physical therapy. He will follow up with Dr. Regan in about 4 to [address] Zamora in about 10 days. He has been discharged by the Hospitalist Service. His only new medications are his Flomax and hydrocodone for pain. Job ID: [id number]
[2020-01-08] MEDS: Enoxaparin Sodium 40 MG/0.4 ML SYRINGE SC SCH (10:22)
[2020-01-08 11:37] VITALS: BP 126/65; TEMP 97.9
[2020-01-08] MEDS: HumaLOG 300 UNITS/3 ML VIAL SC PRN (11:54)
[2020-01-08 13:26] LABS: Iron 18 ug/dL (65-175); Iron Binding Capacity, Total 408 mcg/dL (261-462)
--- NOTE | 2020-01-08 14:48 | EKG ---
Test Reason : Blood Pressure : / mmHG Vent. Rate : 067 BPM Atrial Rate : 086 BPM P-R Int : 000 ms QRS Dur : 092 ms QT Int : 460 ms P-R-T Axes : 000 027 -21 degrees QTc Int : 486 ms Electronic ventricular pacemaker Confirmed by DONNA RABAGO MD ([id number]), video editor KAMARI MATTSON ([id number]) on 01/08/2020 2:47:51 PM Referred By: Confirmed By:DONNA RABAGO MD
--- NOTE | 2020-01-09 15:31 | DIS ---
DATE OF ADMISSION: 12/28/2019 DATE OF DISCHARGE: 01/08/2020 DISCHARGE DIAGNOSES: 1. Acute blood loss anemia, secondary to invasive adenocarcinoma of the colon, status post resection of sigmoid mass and repair of ventral hernia. 2. Anemia. 3. Hyponatremia. 4. Right kidney cyst CONSULTATIONS: Dr. Ambrose Zamora with General Surgery, Dr. Isabel Aviles with Nephrology, Dr. Faizan Peterson with GI, Dr. Cristofer Watkins with Cardiology. HOSPITAL COURSE: Acute GI bleed secondary to invasive adenocarcinoma of the colon, status post resection: The patient initially presented with a hemoglobin of 5.9. He received 3 units of blood while in the hospital. His hemoglobin improved to 8.7. The patient underwent a CT scan of his abdomen and pelvis on the , which showed a 4.4 cm ventral wall abdominal hernia containing a mesenteric sac as well as right-sided hyperdensity in the mid sigmoid colon, suspicious for malignancy. The patient underwent an EGD and colonoscopy on 12/30. He was noted to have a gastric ulcer , internal hemorrhoids, and a 15 to 20 cm rectosigmoid mass. Biopsies came back positive for invasive adenocarcinoma. The patient's CEA level was normal. General Surgery was consulted, and the patient underwent resection of the mass and repair of his ventral hernia. Pathology report shows that proximal and distal margins were clear. There were 18 pericolonic nodes that were negative for metastatic carcinoma. Gastric biopsy was unremarkable for H pylori. The patient was treated with IV Protonix daily. On discharge, he will be sent with oral Protonix. Per General Surgery, he can resume his Eliquis. He should follow up with Dr. Zamora in 2 weeks for suture removal. He should follow up with his PCP in a week. Iron panel showed low ferritin of 42 and low iron sat of 4. B12 and folate were normal. He was also prescribed iron supplements. History of CHF: The patient was on metolazone as an outpatient as well as Entresto. The patient reported some dizziness while getting up from bed. Orthostatics were negative, but his blood pressure was in the low 120s. Given that his EF has improved to 47% per report, he is advised to only take his diuretics if he has significant fluid retention. He was placed on a 1 L fluid restriction while in the hospital and was advised to continue with an 800 mL fluid restriction. Hyponatremia: The patient's sodium was down to 124 on the . With 1 L of fluid restriction, his sodium improved to 131. On discharge, he will be sent with an 800 mL fluid restriction and will follow up with Dr. Gary from Nephrology. LABORATORY DATA: CBC on 01/07: White count 5.7, hemoglobin 8.7, hematocrit 28.4, and platelet count 313. BMP on 01/07: Sodium is 131. Rest of BMP unremarkable. Serum osmolarity: 265. Urine osmolarity: 370. LFTs: Normal. Troponin I: Normal. BNP: 1079.8. TSH: 1.76. CEA: 4.98. IMAGING: Chest x-ray on 12/27: No acute process. CT abdomen and pelvis: Hypodensity in the upper pole of the right kidney, appeared to be a cyst measuring 0.9 x 1 cm. Scattered fecal material in a nondistended nondilated colon. Circumferential mucosal thickening involving the distal sigmoid colon and rectum and right-sided mucosal hyperemia/hyperdensity in the level of mid sigmoid colon, concerning for malignancy. There is a ventral wall abdominal hernia measuring 10 x 4.4 cm. EGD/colonoscopy report: Serpiginous shallow ulceration in the posterior gastric body. Rectosigmoid mass 15 to 20 cm. Scattered diverticulosis. Internal hemorrhoids. DISCHARGE CONDITION: Stable. ACTIVITY: As tolerated. DIET: Heart-healthy diet with an 800 mL fluid restriction. DISCHARGE MEDICATIONS: 1. Protonix 40 mg p.o. daily. 2. Flomax 0.4 mg p.o. daily. 3. [place] script prescribed by Dr. Hartmann 4. Ferrous sulfate 325 mg bid DISCHARGE INSTRUCTIONS: The patient to follow up with his PCP in a week. He should follow up with Dr. Regan on Friday for urinary retention and remove the Eaton catheter prior to visit. He should follow up with Dr. Gary at scheduled appointment in January. He should follow up with Dr. Zamora in 2 weeks. Follow up kidney cyst as an outpatient. Job ID: [id number] MTDD
== END 2020-01-08 12:43 | disposition home health service (06) | DRG 329 ==
LOC: ERS 14:40 → 2NO 18:49 → SURG A 01-01 20:11
PROVIDERS: ADMIT Internal Medicine; ATTEND Internal Medicine
PROC: 30233N1 Transfusion of Nonautologous Red Blood Cells into Peripheral Vein, Percutaneous Approach (ICD-10-PCS; 2019-12-28)
PROC: 0DB68ZX Excision of Stomach, Via Natural or Artificial Opening Endoscopic, Diagnostic (ICD-10-PCS; 2019-12-31)
PROC: 0DB78ZX Excision of Stomach, Pylorus, Via Natural or Artificial Opening Endoscopic, Diagnostic (ICD-10-PCS; 2019-12-31)
PROC: 0DBN8ZX Excision of Sigmoid Colon, Via Natural or Artificial Opening Endoscopic, Diagnostic (ICD-10-PCS; 2019-12-31)
PROC: 0DBN0ZZ Excision of Sigmoid Colon, Open Approach (ICD-10-PCS; principal; 2020-01-03)
PROC: 0DBP0ZZ Excision of Rectum, Open Approach (ICD-10-PCS; 2020-01-03)
PROC: 0DJD8ZZ Inspection of Lower Intestinal Tract, Via Natural or Artificial Opening Endoscopic (ICD-10-PCS; 2020-01-03)
PROC: 0T9B70Z Drainage of Bladder with Drainage Device, Via Natural or Artificial Opening (ICD-10-PCS; 2020-01-05)
DX: C19 Malignant neoplasm of rectosigmoid junction (principal); I50.43 Acute on chronic combined systolic (congestive) and diastolic (congestive) heart failure; D62 Acute posthemorrhagic anemia; I42.8 Other cardiomyopathies; K92.1 Melena; I13.0 Hypertensive heart and chronic kidney disease with heart failure and stage 1 through stage 4 chronic kidney disease, or unspecified chronic kidney disease; E87.2 Acidosis; E22.2 Syndrome of inappropriate secretion of antidiuretic hormone; N28.1 Cyst of kidney, acquired; K43.9 Ventral hernia without obstruction or gangrene; K64.8 Other hemorrhoids; K25.9 Gastric ulcer, unspecified as acute or chronic, without hemorrhage or perforation; E78.5 Hyperlipidemia, unspecified; K21.9 Gastro-esophageal reflux disease without esophagitis; I25.10 Atherosclerotic heart disease of native coronary artery without angina pectoris; F10.10 Alcohol abuse, uncomplicated; D50.9 Iron deficiency anemia, unspecified; K64.4 Residual hemorrhoidal skin tags; K57.30 Diverticulosis of large intestine without perforation or abscess without bleeding; K29.70 Gastritis, unspecified, without bleeding; I48.0 Paroxysmal atrial fibrillation; E66.9 Obesity, unspecified; E11.22 Type 2 diabetes mellitus with diabetic chronic kidney disease; N18.3 Chronic kidney disease, stage 3 (moderate); E87.6 Hypokalemia; R33.8 Other retention of urine; Z86.12 Personal history of poliomyelitis; Z95.810 Presence of automatic (implantable) cardiac defibrillator; Z88.0 Allergy status to penicillin; Z88.2 Allergy status to sulfonamides; Z88.8 Allergy status to other drugs, medicaments and biological substances; Z79.01 Long term (current) use of anticoagulants; Z79.899 Other long term (current) drug therapy; Z79.84 Long term (current) use of oral hypoglycemic drugs; Z87.11 Personal history of peptic ulcer disease; Z68.28 Body mass index [BMI] 28.0-28.9, adult
CPT/HCPCS: 36415; 36416; 36430; 71045; 74177; 80048; 80053; 82274; 82378; 82607; 82728; 82746; 83540; 83550; 83735; 83880; 83930; 83935; 84443; 84484; 85025; 85610; 85730; 86850; 86900; 86901; 88305; 88309; 88312; 93005; 93798; C9113; J0670; J1100; J1650; J1885; J1956; J2001; J2250; J2270; J2405; J2704; J3010; P9016; Q9967; S0020; S0028

== ENCOUNTER 2020-01-10 02:55 | Inpatient (IN) | payer BC, OTHER ==
[2020-01-10 03:45] LABS: #Basophils 0.1 thou/uL (0.0-0.2); #Eosinphils 0.8 thou/uL (0.0-0.7); #Lymphocytes 0.9 thou/uL (1.20-3.40); #Monocytes 0.8 thou/uL (0.11-0.59); #Neutrophils 3.4 thou/uL (1.40-6.50); %Basophils 1.5 % (0.0-1.0); %Eosinophils 13.5 % (0.0-10.0); %Lymphocytes 14.3 % (21.0-51.0); %Monocytes 13.3 % (0.0-10.0); %Neutrophils 57.3 % (42.0-75.0); Anisocytosis SLIGHT = 6-15 cells (100X) (0-5/hpf); MDiff Complete? YES; Mean Corpuscular HGB CONC 31.7 g/dL (32.0-36.0); Mean Corpuscular Hemoglobin 21.5 pg (27.0-31.0); Mean Corpuscular Volume 67.9 fL (78.0-98.0); Mean Platelet Volume 11.4 fL (7.4-10.4); Platelet Count 371 thou/uL (130-400); RBC Distribution Width 24.1 % (11.5-14.5); Red Blood Cell (RBC) Count 4.65 mill/uL (4.70-6.10)
[2020-01-10 03:52] LABS: ALT (SGPT) 13 U/L (8-55); AST (SGOT) 20 U/L (5-34); Albumin 3.8 g/dL (3.4-4.8); Alkaline Phosphatase 70 U/L (40-110); Anion Gap 16 mmol/L (10-20); BUN (Urea Nitrogen) 7 mg/dL (8.4-25.7); Bilirubin, Total 0.7 mg/dL (0.2-1.2); Calc. Creatinine Clearance 0 mL/min (70-130); Calcium 9.7 mg/dL (7.8-10.44); Carbon Dioxide 26 mmol/L (23-31); Chloride 93 mmol/L (98-107); Estimated GFR-MDRD Greater than 90; Globulin 3.3 g/dL (2.4-3.5); Glucose 138 mg/dL (80-115); Potassium 3.3 mmol/L (3.5-5.1); Protein, Total 7.1 g/dL (5.8-8.1); Sodium 132 mmol/L (136-145)
[2020-01-10] MEDS ORDERED: Senokot S 8.6-50 MG TAB PO PRN (05:04)
[2020-01-10] MEDS ORDERED: Bisacodyl 5 MG TAB PO PRN (05:04)
[2020-01-10] MEDS ORDERED: Acetaminophen 325 MG TAB PO PRN (05:04)
[2020-01-10] MEDS ORDERED: Potassium Chloride 20 MEQ TAB PO SCH (05:15)
[2020-01-10] MEDS ORDERED: Magnesium Sulfate 3 GM in Sodium Chloride 0.9% 100 ML IVPB SCH ×2 (06:00→09:30)
[2020-01-10] MEDS ORDERED: Morphine 4 MG/ML VIAL SLOW IVP PRN (06:26)
[2020-01-10] MEDS ORDERED: Ondansetron PF 4 MG/2 ML Vial IVP PRN (06:50)
[2020-01-10] MEDS ORDERED: Ondansetron ODT 4 MG TAB PO PRN (06:50)
[2020-01-10 06:55] LABS: Troponin I 0.012 ng/mL (< 0.028)
--- NOTE | 2020-01-10 07:16 | HP ---
CHIEF COMPLAINT: AICD firing. HISTORY OF PRESENT ILLNESS: The patient is a 69-year-old male who recently was discharged from the hospital on 01/07 after undergoing a colon resection. It appears the patient was initially admitted to the hospital for anemia, underwent a colonoscopy, which indicated a rectosigmoid mass. The patient underwent a resection. The pathology showed that margins were clear. The nodes were negative. The patient at this time was discharged home. The patient states that he has been feeling well. However, he comes into the hospital today, because around 2:30 this morning his AICD fired. The patient states that he has been eating and drinking just fine until this morning. He denies any nausea, vomiting, or diarrhea. He states that he currently has some pain in his chest area from the firing. PAST MEDICAL HISTORY: As of the followin. Recent diagnosis of colon cancer. 2. Urinary retention. This was his last hospitalization. He was unable to urinate. He has a Eaton catheter currently in place. 3. History of chronic atrial fibrillation. 4. Hypertension. 5. Diabetes. 6. Heart failure, systolic. 7. Coronary artery disease. 8. Left lower extremity weakness from polio. PAST SURGICAL HISTORY: He has had a colon resection. He has had an AICD placement and he has had prior cardiac catheterization. ALLERGIES: HE IS ALLERGIC TO PRADAXA, LASIX, PENICILLIN AND COUMADIN. MEDICATIONS: As of the followin. He is supposed to be on Eliquis 5 mg twice daily. 2. Carvedilol 6.25 daily. 3. Iron 325 daily. 4. He is on Protonix 40 mg daily. 5. Rosuvastatin 5 mg daily. 6. Entresto 1 p.o. daily. 7. Tamsulosin 0.4 daily. PERSONAL HISTORY: He drinks 2-4 beers a day. Does not smoke. No drug use. He ambulates with a brace on the left lower extremity due to polio. He is a full code. FAMILY HISTORY: Both parents , natural. Mother at 70 and father at 89. REVIEW OF SYSTEMS: All negative except for the ones mentioned in the HPI. Power of trademark attorney, the son Mr. Yarbrough. PHYSICAL EXAMINATION: VITAL SIGNS: Are as of the following; temperature of 98.8, blood pressure of 118/60, heart rate of 79. GENERAL: He is awake, alert, and oriented x3. Does not appear in distress. CV: Irregularly irregular. LUNGS: Clear to auscultation. No rhonchi or wheezes noted. ABDOMEN: Soft. Bowel sounds are present x2. He does have a mid abdominal incision, which is intact. He does have some pain upon palpation to his left upper and lower abdominal area. EXTREMITIES: Mild 1+ lower extremity pitting edema. NEUROVASCULAR: He has no focal deficits noted. SKIN: No cuts, lesions or bruises noted. His AICD on the left chest wall area appears to be intact and no pain upon palpation. LABORATORY RESULTS: As of the following; WBCs of 5.7, hemoglobin of 8.7, hematocrit of 28.4, platelets of 313. Chemistry: Sodium of 132, potassium 3.3, BUN of 7 and creatinine of 0.83. His magnesium was 1.4. His troponin was normal. IMAGING: The patient had a chest x-ray, which did not show any acute abnormalities. ASSESSMENT AND PLAN: The patient is a very pleasant 69-year-old male who presents to the hospital after his automatic implantable cardioverter defibrillator shocking. 1. Automatic implantable cardioverter defibrillator shock. I was told that the patient has had a ventricular fibrillation per the ER. I will replace the magnesium, replace the potassium. Cardiology has been consulted. We will keep patient n.p.o. for now and closely monitor the patient. 2. Atrial fibrillation, chronic. We will start patient on his Eliquis. Per records it is noted that the surgeon is okay for him to start his Eliquis. 3. Anemia, stable. 4. Recent colon cancer with adenocarcinoma with negative margins, stable. 5. Deep venous thrombosis prophylaxis. The patient is already on Eliquis. Job ID: [id number]
[2020-01-10] MEDS ORDERED: Potassium Chloride 10 MEQ in Premix Bag 1 BAG IVPB SCH (08:00)
[2020-01-10 08:02] VITALS: BMI 27.4
[2020-01-10] MEDS: Ferrous Sulfate 325 MG TAB PO SCH ×2 (08:13→16:18)
[2020-01-10] MEDS: Apixaban 5 MG TAB PO SCH ×2 (08:14→21:33)
[2020-01-10] MEDS: Sacubitril 49 MG/Valsartan 51 MG TABLET PO SCH ×2 (08:14→21:33)
[2020-01-10] MEDS: Rosuvastatin 5 MG TAB PO SCH (08:14)
[2020-01-10] MEDS: Tamsulosin HCl 0.4 MG CAP PO SCH (08:14)
[2020-01-10] MEDS: Sodium Chloride 0.9% 1,000 ML IV SCH (08:16)
[2020-01-10] MEDS ORDERED: Carvedilol 6.25 MG TAB PO SCH (09:00)
[2020-01-10] MEDS ORDERED: Apixaban 5 MG TAB PO SCH ×2 (09:00)
[2020-01-10 10:20] LABS: Troponin I 0.014 ng/mL (< 0.028)
--- NOTE | 2020-01-10 10:53 | RAD ---
CHEST 1 VIEW: INDICATION: History of chest pain and defibrillator firing. COMPARISON: Prior exam dated 12/28/2019. FINDINGS: There is persistent cardiomegaly. Dual-lead AICD is unchanged. Lungs are clear. No pleural effusio n or pneumothorax is evident. IMPRESSION: Stable cardiomegaly. Automatic implantable cardioverter/defibrillator appears unchanged from the com parison. POS: BH
[2020-01-10] MEDS ORDERED: Dextrose 50% Abboject 50 ML SYRINGE SLOW IVP PRN (11:03)
[2020-01-10] MEDS ORDERED: Insulin Regular 300 UNITS/3 ML VIAL SC PRN (11:03)
[2020-01-10] MEDS ORDERED: Dextrose 5% in Water 1,000 ML IV PRN (11:03)
[2020-01-10] MEDS: Insulin Regular 300 UNITS/3 ML VIAL SC PRN ×2 (11:52→16:20)
[2020-01-10 14:42] LABS: Hemoglobin 10.3 g/dL (14.0-18.0); Platelet Count 367 thou/uL (130-400)
[2020-01-10 15:00] LABS: Anion Gap 15 mmol/L (10-20); BUN (Urea Nitrogen) 6 mg/dL (8.4-25.7); Calc. Creatinine Clearance 95 mL/min (70-130); Calcium 9.2 mg/dL (7.8-10.44); Carbon Dioxide 26 mmol/L (23-31); Chloride 97 mmol/L (98-107); Estimated GFR-MDRD 89; Glucose 232 mg/dL (80-115); Magnesium 2.1 mg/dL (1.6-2.6); Potassium 3.7 mmol/L (3.5-5.1); Sodium 134 mmol/L (136-145)
--- NOTE | 2020-01-10 15:07 | CON ---
DATE OF CONSULTATION: 01/10/2020 ADDITIONAL REFERRING PHYSICIAN: Dr. Rakel Yoo, on-call skin carver. HISTORY OF PRESENT ILLNESS: I am seeing Mr. Aguilar at our [facility] Telemetry Floor as an electrophysiology customer support consultant for the following problems: 1. ICD discharge due to likely ventricular tachycardia. 2. History of chronic systolic congestive heart failure with nonischemic cardiomyopathy: a. Reduced LVEF of 25% to 30% on echo on September 14, 2018, as well as 33% and reversible changes on stress test on September 14, 2018. b. Left heart catheterization on 11/11/2018, demonstrated nonocclusive coronary artery disease, LVEF 20%. c. Heart failure hospitalization in December 2018. 3. Chronic atrial fibrillation: a. Cardioversion in May 2019 with transient taoism of sinus rhythm. 4. 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 5. CHADS-VASc score at 4 with type 2 diabetes, hypertension, CHF, and age, on Eliquis. 6. History of GI bleed with perirectal mass, status post resection in December 2019. 7. History of polio related lower extremity malformation. ALLERGIES: PENICILLIN AND LASIX. MEDICATIONS: At home included; 1. Crestor 5 mg daily. 2. Janumet mg daily. 3. Carvedilol 6.25 mg twice a day. 4. Eliquis 5 mg twice a day, which has been on hold for 2 weeks due to rectal surgery, but restarted this morning. 5. Bactroban. 6. Sacubitril-valsartan (Entresto) 24/25.5 mg one tablet twice a day. 7. Insulin. 8. Tamsulosin. 9. Pantoprazole. 10. Ferrous sulfate. SUBJECTIVE: Mr. Aguilar is here due to an ICD shock. This occurred while he was sleeping. No exertion was preceding this. He has also had no preceding symptoms. No history of angina. No symptoms of fluid overload or CHF exacerbation is noted. He denies palpitations. No stroke-like symptoms. No neurological deficits. No fever, chills, or cough. Rest of 12-point system otherwise unremarkable. PAST MEDICAL HISTORY: The patient underwent on 01/03/2020, resection of a sigmoid colon mass and also repair of an incisional hernia by Dr. Zamora, which seems to be healing unremarkable. He has had no bleeding issues and Eliquis again restarted today. SOCIAL HISTORY: The patient denies smoking, EtOH, or drug abuse. FAMILY HISTORY: Unremarkable. Parents of natural causes at old age, 70 with mother and 89 of father. OBJECTIVE: VITAL SIGNS: Blood pressure 140/65, heart rate 77, respirations 17, temperature 97.6 degrees Fahrenheit. GENERAL: Reveals alert and oriented man, in no apparent distress. NECK: Supple. Jugular veins not distended. CHEST: Coarse without crackles. CARDIOVASCULAR: Heart sounds are irregularly irregular. S1 and S2 are variable. No murmur or gallop. Left precordial ICD insertion site is well healed. ABDOMEN: Benign. Bowel sounds positive. EXTREMITIES: Lower extremities without edema, clubbing, or cyanosis. NEUROLOGIC: The patient is nonfocal. MUSCULOSKELETAL: No joint swelling or deformity. SKIN: Without rash. DATA BASE: EKG reviewed from 01/10/2020 at 3 a.m., reveals atrial fibrillation, narrow QRS, intermittent ventricular pacing, occasional PVCs, heart rate 69 beats per minute, QTc is 473 milliseconds. LABORATORY DATA: White cell count 6.0, hemoglobin 10, platelet count is 371. Sodium 132, potassium 3.3, BUN is 7, creatinine 0.83. Troponin level is 0.014, 0.012, and 0.014 consecutively. AST and ALT are 20 and 13. ICD interrogation was reviewed in detail, revealing a [employer] dual-chamber ICD, battery longevity is adequate at over 5.1 years. Impedance 490 and 480 ohms, high voltage 73 ohms. The patient is 45% ventricularly paced. Atrial fibrillation burden is almost 100%. There was a transient sinus rhythm noted in May for about 2 weeks before recurrence of atrial fibrillation post cardioversion. Interrogation of the episodes reviewed and it revealed VT episodes and VF episodes from January 01 with ventricular rates up to 200 beats per minute are seen. These episodes prompted ATP therapy, mostly responding to that, but an episode last night has not responded to first ATP round and has rapid rates requiring an ICD shock for termination. Intracardiac electrograms are only minutely different from the baseline sensed ventricular beats, but the whole episode seems to initiate during slowly conducted atrial fibrillation with intermittent ventricular pacing, and after ventricle ATP, the rhythm returns to the same, which would still suggest likelihood of ventricular tachycardia. ASSESSMENT AND PLAN: Mr. Aguilar is a 69-year-old man with history of congestive heart failure and nonischemic cardiomyopathy, severely reduced LVEF in the past , who is presenting after an ICD shock. It seems that ever since his surgery last week, he has intermittent episodes of ventricular tachyarrhythmias. The episodes mostly responded to ATP therapy, but required ICD shock for termination. The first episode actually temporarily preceded his surgery last week. Due to the high likelihood of ventricular arrhythmias causing these rapid ventricular sensing, suppression with anti agent would be a strong consideration. He has baseline QT prolongation, although not severe, would of benefit form amiodarone, although has mild baseline prolongation QT could be a consideration. Alternatively, Mexitil could be also an option. Amiodarone would have a potential benefit of suppressing atrial arrhythmias long-term as well. Unfortunately, cardioversion at this point not a good option due to recent interruption of his anticoagulant therapy. Also issue is his high rate ventricular pacing with a medium dose beta-jarett therapy. Should amiodarone be added, his ventricular pacing would likely go off. If LVEF still remains severely reduced, he would benefit from upgrading his device to a Bi-V or His pacing device in the future. Pulmonary venous isolation procedure also could be a consideration long-term for him as far as the atrial arrhythmias are concerned. His bleeding issues hopefully will resolve after the sigmoid surgery. Anticoagulation will be initiated. He also could be considered for a Watchman device placement, especially if recurrent bowel bleeds are seen. We will follow with you. Thank you again for allowing me to participate in the care of your patient. Job ID: [id number] MTDD
[2020-01-10] MEDS: Carvedilol 6.25 MG TAB PO SCH (16:17)
[2020-01-10] MEDS: Potassium Chloride 20 MEQ TAB PO SCH (16:17)
[2020-01-10] MEDS: Amiodarone 200 MG TAB PO SCH (21:33)
[2020-01-11 05:03] LABS: #Basophils 0.1 thou/uL (0.0-0.2); #Eosinphils 0.8 thou/uL (0.0-0.7); #Lymphocytes 0.6 thou/uL (1.20-3.40); #Monocytes 0.8 thou/uL (0.11-0.59); #Neutrophils 4.4 thou/uL (1.40-6.50); %Basophils 0.9 % (0.0-1.0); %Eosinophils 11.6 % (0.0-10.0); %Lymphocytes 9.1 % (21.0-51.0); %Monocytes 11.7 % (0.0-10.0); %Neutrophils 66.7 % (42.0-75.0); Band 4 % (5-11); Eosinophils 2 % (0-10); Hemoglobin 9.2 g/dL (14.0-18.0); Hypochromia SLIGHT = 6-15 cells (100X) (0-5/hpf); Lymphocytes 10 % (21-51); MDiff Complete? YES; Mean Corpuscular HGB CONC 30.4 g/dL (32.0-36.0); Mean Corpuscular Hemoglobin 20.8 pg (27.0-31.0); Mean Corpuscular Volume 68.4 fL (78.0-98.0); Mean Platelet Volume 11.4 fL (7.4-10.4); Monocytes 6 % (0-10); Neutrophil 78 % (42-75); Platelet Count 363 thou/uL (130-400); Platelet Morphology Comment Appears Adequate; Red Blood Cell (RBC) Count 4.41 mill/uL (4.70-6.10); White Blood Cell (WBC) Count 6.5 thou/uL (4.8-10.8)
[2020-01-11 05:28] LABS: Anion Gap 14 mmol/L (10-20); BUN (Urea Nitrogen) 6 mg/dL (8.4-25.7); Calc. Creatinine Clearance 101 mL/min (70-130); Calcium 9.1 mg/dL (7.8-10.44); Carbon Dioxide 27 mmol/L (23-31); Chloride 97 mmol/L (98-107); Estimated GFR-MDRD Greater than 90; Glucose 165 mg/dL (80-115); Magnesium 1.7 mg/dL (1.6-2.6); Potassium 3.5 mmol/L (3.5-5.1); Sodium 134 mmol/L (136-145)
[2020-01-11] MEDS: Insulin Regular 300 UNITS/3 ML VIAL SC PRN ×2 (05:56→12:23)
[2020-01-11] MEDS: Sodium Chloride 0.9% 1,000 ML IV SCH (05:57)
--- NOTE | 2020-01-11 06:13 | CON ---
DATE OF CONSULTATION: PRIMARY CARE DOCTOR: Leobardo Boggs Mattoon, PRIMARY MANAGER CAR: Cristofer Watkins MD. PRIMARY CELL LEAD: Samuel Gary MD REASON FOR CARDIOLOGY CONSULT: Status post AICD discharge. HISTORY OF PRESENT ILLNESS: Mr. Aguilar is a 69-year-old male with significant history of persistent atrial fibrillation status post cardioversion in 05/2019, nonischemic cardiomyopathy status post AICD placement, mild CAD, status post acute blood loss anemia, status post sigmoid mass resection in 12/2019, right kidney cyst, and chronic systolic heart failure. He was just discharged from hospital on 01/08/2020 for acute blood loss anemia with status post sigmoid mass resection. He was doing okay for 24 hours, however, around 2:30 in the morning on 01/10/2020, the patient had a discharge from defibrillator device. During the episode, the patient was sleeping. He did not have any cardiac complaints, such as shortness of breath, dizziness, lightheadedness, or fluttering or palpitation in his chest. Due to the event, the patient was transferred to emergency department for further evaluation and treatment. The patient's AICD was interrogated, which shows very frequent atrial fibrillation episode with termination by defibrillator, please defer to Dr. Helms's consultation report. This morning, the patient denied dizziness, lightheadedness, chest pain, shortness of breath, or any other cardiac complaints. The patient had echocardiogram done on 11/19/2019 with EF 45% to 50%, diastolic function is indeterminate due to the AFib, moderate dilated left atrium, mild mitral valve regurgitation, mild tricuspid regurgitation, and mild elevation of RVSP. The patient had a cardiac catheterization done in 10/2018 with diffuse irregularity 20% stenosis in the mid left circumflex and 10% stenosis in the mid RCA. The patient had [facility] AICD placement in 01/2019. PAST MEDICAL HISTORY: 1. Chronic AFib. 2. Diabetes. 3. Hyperlipidemia. 4. Fatty liver. 5. Umbilical hernia. 6. Peptic ulcer. 7. GERD. 8. Hypertension. 9. Mild CAD. 10. Chronic systolic heart failure. 11. Nonischemic cardiomyopathy. 12. History of polio. 13. Acute anemia status post sigmoid mass resection in 12/2019. PAST SURGICAL HISTORY: 1. Status post sigmoid mass resection in 2019. 2. AICD placement in 01/2019. 3. Hernia repair. 4. Tonsillectomy. 5. Cardioversion in 05/2019. ALLERGIES: HE IS ALLERGIC TO PRADAXA, LASIX, PENICILLIN, AND COUMADIN. FAMILY HISTORY: The patient has no significant cardiac-related family history in his family. SOCIAL HISTORY: He is living with his son. He drinks 2 to 4 beers a day. He never smokes. He denied any illicit drug or tobacco abuse. He ambulates with brace on his left lower extremity. HOME MEDICATIONS: 1. Crestor 5 mg once a day. 2. Janumet one tablet twice a day. 3. Carvedilol 6.25 mg twice a day. 4. Bactroban ointment. 5. Entresto 24.5/25.5 one tablet twice a day. 6. Insulin 10 units. 7. Flomax once a day. 8. Protonix 40 mg once a day. 9. Ferrous sulfate 325 mg twice a day. 10. The patient was on metolazone 5 mg once a day, which was discontinued by Dr. Gary. REVIEW OF SYSTEMS: Twelve-point review of systems negative unless otherwise mentioned in HPI. He has been off the Entresto for more than 2 weeks due to acute anemia and status post mass resection. PHYSICAL EXAMINATION: VITAL SIGNS: Blood pressure 138/63, temperature 97.7, pulse is 75 and atrial fibrillation and V paced, respiratory rate 18, and O2 saturation 98% on room air. GENERAL: The patient is alert and oriented x4, not in acute distress. HEAD: Normocephalic and atraumatic. EYES: Extraocular muscle movement intact. He wears glasses. ENT AND MOUTH: Oral and nasal mucosa moist without lesion. NECK: Supple. Normal range of motion. No JVD. No bruit or thrill noticed at the carotid area. RESPIRATORY: Clear to auscultate bilaterally. No wheezing, rales, or rhonchi. CARDIOVASCULAR: Irregularly irregular. No S3 or S4. No significant murmur, heaves, or thrill noted. 2+ pulses in the bilateral upper and lower extremities. No edema in the lower extremities. ABDOMEN: Soft and nontender. No mass palpated. Bowel sounds are present. MUSCULOSKELETAL: The patient able to move all extremities. The patient denied claudication. SKIN: Warm and dry. No lesion, rash, or erythema noted. NEUROLOGIC: The patient is alert and oriented x4. Nonfocal. PSYCHIATRIC: The patient's mood is appropriate. LABORATORY DATA: WBC 6.0, hemoglobin 10.0, hematocrit 31.5, and platelets 371. Sodium 132, potassium 3.3, BUN 7, creatinine 0.83, glucose 138, and calcium 9.7. Magnesium 1.4. AST 20 and ALT 13. Troponin is 0.014, 0.012, and 0.014. Total cholesterol 124, triglycerides 89, HDL 58, and LDL 48. TSH is 1.7652. Chest x-ray, stable cardiomegaly. ASSESSMENT AND PLAN: 1. Nonischemic cardiomyopathy with history of automatic implantable cardioverter-defibrillator placement in 2018, and status post automatic implantable cardioverter-defibrillator discharge x1 on 01/10/2020. The patient's AICD interrogation record was reviewed by Dr. Helms since the patient was off Eliquis for more than 2 weeks, the patient is going to be on medical management at this moment and possible ablation with possible Watchman device placement by EP unless the patient's vital signs are not stable. At this moment, the patient is symptomatic. The patient on the telemetry record to monitor. 2. Chronic atrial fibrillation with status post cardioversion in 05/2019. According to the patient and automatic implantable cardioverter-defibrillator interrogation, the patient has a very frequent episode of atrial fibrillation. The patient's Eliquis was resumed from today and he is also on amiodarone 200 mg 3 times a day and carvedilol 6.25 twice a day. Also, the patient's magnesium at 1.4 and potassium 3.3, which was covered by the primary care doctor today. 3. Mild coronary artery disease. The patient underwent cardiac cath in 10/2018. He is on carvedilol 6.25 mg twice a day. He is not on aspirin at this moment since the patient is on Eliquis instead. He was on Entresto twice a day, which is going to be resumed from today. 4. Chronic systolic heart failure. The patient's condition is stable at this moment. The patient is on carvedilol and Entresto. At this moment, the patient is not on a diuretic. We would like to continue to monitor his symptoms and may address the patient's medication. 5. Anemia status post sigmoid mass resection. The patient's hemoglobin level has been stable. We would like to continue to monitor. 6. Diabetes. The patient's blood glucose has been stable at this moment. Thank you very much for Cardiology Service to participate in the care of this patient. We will follow with the patient's care team and make further recommendations as appropriate. Job ID: [id number]
--- NOTE | 2020-01-11 07:50 | CON ---
DATE OF CONSULTATION: 01/10/2020 ADDENDUM: INDICATION FOR CONSULTATION: A 69-year-old gentleman with history of cardiomyopathy, who has undergone AICD implant in the past. He received a shock from the AICD early this morning. He presented to the hospital and was admitted for further evaluation. He has undergone evaluation of device. He has had some episodes of ventricular tachycardia and ventricular fibrillation many times. He was terminated from the ventricular tachycardia but early this morning around 2 or 3 o'clock in the morning, he received a shock from the AICD. We have asked the head paper tester to see Mr. Aguilar in consultation. He may need further adjustment of his medications or he may need to undergo adjustment of the device. This will be dealt with by the head paper tester, Dr. Helms. At this time, he is actually symptom-free. He is doing well. He had no other complaints. He recently was in the hospital due to GI surgery and had no problems during his last admission. PAST MEDICAL HISTORY: Please refer to the notes dictated by the nurse practitioner. SOCIAL HISTORY: Please refer to the notes dictated by the nurse practitioner. FAMILY HISTORY: Please refer to the notes dictated by the nurse practitioner. MEDICATIONS: Please refer to the notes dictated by the nurse practitioner. REVIEW OF SYSTEMS: Please refer to the notes dictated by the nurse practitioner. ALLERGIES: PLEASE REFER TO THE NOTES DICTATED BY THE NURSE PRACTITIONER. PHYSICAL EXAMINATION: GENERAL: Reveals an elderly gentleman, who is in no acute distress at this time. He is alert. He is oriented. VITAL SIGNS: Stable. Blood pressure 105/57. He is afebrile. Heart rate is in the 60s, respiratory rate 20, O2 saturation 96%. HEENT: Unremarkable. CHEST: Actually clear to auscultation without any rales, rhonchi, or wheezing at this time. CARDIOVASCULAR: Reveals an irregular rhythm. He did have a history of chronic atrial fibrillation in the past, underwent cardioversion in 2019. Apparently, he has been in sinus rhythm at that time. Review of the EKG does shows that he is in a sinus rhythm. Perhaps, he was having some ectopy when I evaluated the patient but it appears further on his EKGs and rhythms that this patient does remain in atrial fibrillation. ABDOMEN: Abdominal exam shows surgical dressing over the wound of the right lower abdominal area. Bowel sounds are present. EXTREMITIES: Show no clubbing, cyanosis, or edema. Pedal pulses are difficult to palpate, but are present. He did have the left lower extremity remain somewhat malformed and small due to polio when he was a child. NEUROLOGIC: He appears to be intact. LABORATORY DATA: Shows hemoglobin of 10.3, hematocrit was 34.6, WBC was 6, and platelet count of 371,000. His sodium was 134, potassium 3.7, chloride was 97, bicarb was 26. His BUN was 6 and creatinine 0.85. Blood sugar was 232. IMPRESSION: 1. Elderly gentleman with history of cardiomyopathy with decreased ejection fraction in the past. He has undergone AICD implant and received a shock early this morning. He has what appears to be chronic atrial fibrillation. He has been on oral anticoagulation. He has had some GI bleeding in the past and then underwent a surgical procedure and then was not found to have any evidence of malignancy and mass, and has been relatively stable since that time which is within this month was resected. With the severe decrease in his ejection fraction and the AICD shocks, he will need medical management most likely with amiodarone. He eventually may need to undergo an ablation. This will be dealt with by the head paper tester. 2. Atrial fibrillation. He will need to be anticoagulated again and hopefully will not have any bleeding prior to undergoing electrocardioversion. Due to his severe decrease in left ventricular systolic function, he eventually also may need to undergo an upgrade to a biventricular device. We will leave this up to discretion of the head paper tester. At this time, he appears to be relatively stable. We will continue to monitor the patient very carefully and will adjust his medications as per the head paper tester. Job ID: [id number]
[2020-01-11] MEDS: Potassium Chloride 20 MEQ TAB PO SCH ×2 (08:52→15:46)
[2020-01-11] MEDS: Carvedilol 6.25 MG TAB PO SCH ×2 (08:52→15:46)
[2020-01-11] MEDS: Sacubitril 49 MG/Valsartan 51 MG TABLET PO SCH (08:52)
[2020-01-11] MEDS: Amiodarone 200 MG TAB PO SCH ×2 (08:52→15:46)
[2020-01-11] MEDS: Ferrous Sulfate 325 MG TAB PO SCH ×2 (08:52→15:46)
[2020-01-11] MEDS: Rosuvastatin 5 MG TAB PO SCH (08:53)
[2020-01-11] MEDS: Apixaban 5 MG TAB PO SCH (08:53)
[2020-01-11] MEDS: Tamsulosin HCl 0.4 MG CAP PO SCH (08:53)
--- NOTE | 2020-01-11 11:29 | PDOC.EP ---
- Subjective Date: 01/11/20 Time: 08:00 Interval History: ICD AND VENTRICULAR TACHYCARDIA MANAGEMENT: he feels well today with no recurrent arrhythmia or perceived ICD therapies/ discharge. he feels he is tolerating amiodarone well and not experiencing any severe side effects. He voices no cardiac concerns or complaints today - Review of Systems Constitutional: denies: chills, fever, malaise, sweats, weakness Respiratory: denies: cough, shortness of breath, wheezing Cardiology: denies: chest pain, heart racing, light headedness, palpitations, passing out Gastrointestinal: denies: abdominal pain, constipation, nausea, vomitting Musculoskeletal: denies: unstable gait, falls, neck pain - Objective Allergies/Adverse Reactions: Allergies Allergy/AdvReac Type Severity Reaction Status Date / Time dabigatran etexilate Allergy Severe Rash Verified 01/10/20 08:10 [From Pradaxa] furosemide [From Lasix] Allergy Severe Rash Verified 01/10/20 08:10 Penicillins Allergy anaphylaxsi Verified 01/10/20 08:10 s warfarin Allergy weakness, Verified 01/10/20 08:10 dizziness, diarrhea Current Medications Acetaminophen (Tylenol) 650 mg PO Q4H PRN PRN Reason: Headache/Fever/Mild Pain (1-3) Amiodarone HCl (Cordarone) 200 mg PO TID [facility] Last Admin: 01/11/20 08:52 Dose: 200 mg Apixaban (Eliquis) 5 mg PO BID [facility] Last Admin: 01/11/20 08:53 Dose: 5 mg Bisacodyl (Dulcolax) 10 mg PO DAILYPRN PRN PRN Reason: Constipation Carvedilol (Coreg) 6.25 mg PO BID-[facility] Last Admin: 01/11/20 08:52 Dose: 6.25 mg Dextrose/Water (Dextrose 50%) 25 gm SLOW IVP PRN PRN PRN Reason: Hypoglycemia Ferrous Sulfate (Feosol) 325 mg PO BID-[facility] Last Admin: 01/11/20 08:52 Dose: 325 mg Glucagon (Glucagon) 1 mg IM PRN PRN PRN Reason: Hypoglycemia Sodium Chloride (Normal Saline 0.9%) 1,000 mls @ 50 mls/hr IV .Q20H [facility] Last Admin: 01/11/20 05:57 Dose: 1,000 mls Dextrose/Water (D5w) 1,000 mls @ 0 mls/hr IV .Q0M PRN PRN Reason: Hypoglycemia Insulin Human Regular (Humulin R) 0 units SC .MILD SLIDING SCALE PRN PRN Reason: Mild Correctional Scale Last Admin: 01/11/20 05:56 Dose: 2 unit Insulin Human Regular (Humulin R) 0 units SC .BEDTIME SLIDING SC PRN PRN Reason: Bedtime Correctional Scale Last Admin: 01/10/20 21:32 Dose: 2 units Morphine Sulfate (Morphine) 4 mg SLOW IVP Q4H PRN PRN Reason: Mild-Moderate Pain (1-5) Pantoprazole Sodium (Protonix) 40 mg PO DAILY [facility] Last Admin: 01/11/20 08:53 Dose: 40 mg Potassium Chloride (K-Dur) 40 meq PO BID-[facility] Last Admin: 01/11/20 08:52 Dose: 40 meq Rosuvastatin Calcium (Crestor) 5 mg PO DAILY [facility] Last Admin: 01/11/20 08:53 Dose: 5 mg Sacubitril/Valsartan (Entresto 24 Mg-26 Mg Tablet) 1 tab PO BID [facility] Last Admin: 01/11/20 08:53 Dose: 1 tab Senna/Docusate Sodium (Senokot S) 2 tab PO BID PRN PRN Reason: Constipation Sodium Chloride (Flush - Normal Saline) 10 ml IVF Q12HR [facility] Last Admin: 01/11/20 08:53 Dose: 10 ml Sodium Chloride (Flush - Normal Saline) 10 ml IVF PRN PRN PRN Reason: Saline Flush Tamsulosin HCl (Flomax) 0.4 mg PO DAILY [facility] Last Admin: 01/11/20 08:53 Dose: 0.4 mg Vital Signs & Weight: Vital Signs Temp Pulse Resp BP Pulse Ox 01/11/20 07:10 98.0 F 60 16 138/64 99 01/11/20 04:00 97.6 F 79 18 133/66 97 Weight 180 lb 5.41 oz I/O: I/O 01/10/20 01/11/20 01/12/20 06:59 06:59 06:59 Intake Total 1620 Output Total 1475 Balance 145 - Quality Measures Condition: Atrial Fibrillation/Flutter (hx or current) CV meds: Eliquis: Yes - Physical Exam General: alert & oriented x3, appears well, no apparent distress, speech clear, affect appropriate HEENT: mucus membranes moist, normocephaly Neck: supple neck, midline trachea, no lymphadenopathy Cardiology: PMI nondisplaced, irregularly irregular Lungs: clear to auscultation, normal breath sounds, no wheeze, rales, rhonchi Neurology: cranial nerve 2-12 intact, grossly intact, no lateralizing findings Extremities: dry, strong pulses, warm Skin: device site stable w/o swelling, left sided device - Labs Result Diagrams: 01/11/20 03:52 01/11/20 03:52 - EKG Interpretation EKG Method: Telemetry EKG shows: Atrial fibrillation - Device Device: dual, defibrillator Device Result: [facility] - Assessment/Plan Assessment/Plan: 1. ICD discharge due to ventricular tachycardia. 2. Heart failure, partially recovered EF -nonischemic cardiomyopathy: - Reduced LVEF of 25% to 30% on echo on September 14, 2018 - Now EF 45-50% 3. CAD -Left heart catheterization on 11/11/2018, demonstrated nonocclusive coronary artery disease, LVEF 20%. 3. Chronic atrial fibrillation: - Cardioversion in May 2019 with transient buddhist of sinus rhythm. -back in AF, amiodarone loading 4. Dual chamber ICD [facility], implant January 2019 5. CHADS-VASc score at 4 with type 2 diabetes, hypertension, CHF, and age, on Eliquis. 6. History of GI bleed with perirectal mass, status post resection in December 2019. 7. History of polio related lower extremity malformation. Continue amiodarone loading taper. He continues to have nonsustained ventricular tachycardia events an ongoing atrial fibrillation by telemetry reviewed today. No sustained ventricular tachycardia events are seen, no ATP/ ICD therapies required since initiating amiodarone. His rhythm is largely stable and he could continue amiodarone loading as an outpatient gradually tapering his dose to 200 mg daily by 1 months time. Continue anticoagulation with Eliquis. consider cardioversion after 2-3 weeks. QTC stable by EKG today, 490msec. Amiodarone taper: 200mg TID x 7 days 200mg BID x 14 days 200mg daily thereafter
[2020-01-11] MEDS ORDERED: Magnesium Sulfate 4 GM in Sodium Chloride 0.9% 250 ML 250 ML IVPB SCH (12:00)
--- NOTE | 2020-01-11 13:11 | PDOC.CPN ---
- Subjective Date: 01/11/20 Time: 09:00 Interval history: The pt seen and examined. No overnight events. No cardiac complaints. - Objective Allergies/Adverse Reactions: Allergies Allergy/AdvReac Type Severity Reaction Status Date / Time dabigatran etexilate Allergy Severe Rash Verified 01/10/20 08:10 [From Pradaxa] furosemide [From Lasix] Allergy Severe Rash Verified 01/10/20 08:10 Penicillins Allergy anaphylaxsi Verified 01/10/20 08:10 s warfarin Allergy weakness, Verified 01/10/20 08:10 dizziness, diarrhea Visit Medications: Current Medications Acetaminophen (Tylenol) 650 mg PO Q4H PRN PRN Reason: Headache/Fever/Mild Pain (1-3) Amiodarone HCl (Cordarone) 200 mg PO TID [facility] Last Admin: 01/11/20 08:52 Dose: 200 mg Apixaban (Eliquis) 5 mg PO BID [facility] Last Admin: 01/11/20 08:53 Dose: 5 mg Bisacodyl (Dulcolax) 10 mg PO DAILYPRN PRN PRN Reason: Constipation Carvedilol (Coreg) 6.25 mg PO BID-[facility] Last Admin: 01/11/20 08:52 Dose: 6.25 mg Dextrose/Water (Dextrose 50%) 25 gm SLOW IVP PRN PRN PRN Reason: Hypoglycemia Ferrous Sulfate (Feosol) 325 mg PO BID-[facility] Last Admin: 01/11/20 08:52 Dose: 325 mg Glucagon (Glucagon) 1 mg IM PRN PRN PRN Reason: Hypoglycemia Sodium Chloride (Normal Saline 0.9%) 1,000 mls @ 50 mls/hr IV .Q20H [facility] Last Admin: 01/11/20 05:57 Dose: 1,000 mls Dextrose/Water (D5w) 1,000 mls @ 0 mls/hr IV .Q0M PRN PRN Reason: Hypoglycemia Magnesium Sulfate 4 gm/ Sodium (Chloride) 258 mls @ 86 mls/hr IVPB 1200 [facility] Stop: 01/11/20 14:59 Last Admin: 01/11/20 12:14 Dose: 258 mls Insulin Human Regular (Humulin R) 0 units SC .MILD SLIDING SCALE PRN PRN Reason: Mild Correctional Scale Last Admin: 01/11/20 12:23 Dose: 4 unit Insulin Human Regular (Humulin R) 0 units SC .BEDTIME SLIDING SC PRN PRN Reason: Bedtime Correctional Scale Last Admin: 01/10/20 21:32 Dose: 2 units Morphine Sulfate (Morphine) 4 mg SLOW IVP Q4H PRN PRN Reason: Mild-Moderate Pain (1-5) Pantoprazole Sodium (Protonix) 40 mg PO DAILY [facility] Last Admin: 01/11/20 08:53 Dose: 40 mg Potassium Chloride (K-Dur) 40 meq PO BID-[facility] Last Admin: 01/11/20 08:52 Dose: 40 meq Rosuvastatin Calcium (Crestor) 5 mg PO DAILY [facility] Last Admin: 01/11/20 08:53 Dose: 5 mg Sacubitril/Valsartan (Entresto 24 Mg-26 Mg Tablet) 1 tab PO BID [facility] Last Admin: 01/11/20 08:53 Dose: 1 tab Senna/Docusate Sodium (Senokot S) 2 tab PO BID PRN PRN Reason: Constipation Sodium Chloride (Flush - Normal Saline) 10 ml IVF Q12HR [facility] Last Admin: 01/11/20 08:53 Dose: 10 ml Sodium Chloride (Flush - Normal Saline) 10 ml IVF PRN PRN PRN Reason: Saline Flush Tamsulosin HCl (Flomax) 0.4 mg PO DAILY [facility] Last Admin: 01/11/20 08:53 Dose: 0.4 mg Vital Signs & Weight: Vital Signs Temp Pulse Resp BP Pulse Ox 01/11/20 11:15 97.8 F 71 20 144/64 H 99 01/11/20 07:10 98.0 F 60 16 138/64 99 01/11/20 04:00 97.6 F 79 18 133/66 97 Weight 180 lb 5.41 oz - Physical Exam General: alert & oriented x3 HEENT: mucus membranes moist Neck: supple neck Cardiac: irregularly regular, S1/S2 Lungs: clear to auscultation Neuro: cranial nerve 2-12 intact Extremities: no edema - Labs Result Diagrams: 01/11/20 03:52 01/11/20 03:52 Troponin/CKMB Troponin I 0.014 ng/mL (< 0.028) 01/10/20 09:19 - Telemetry Supraventricular conduction: atrial fibrillation - Assessment/Plan Assessment/Plan: 1. s/p ICD discharge due to ventricular tachycardia. - on Amiodarone; 2. Chronic Afib with RVR with hx of DCCV in 05/2019 - he has been off Eliquis for 2 wks, which was resumed from yesterday; On Amiodarone 200mg TID from 2019; consider cardioversion after 2-3 weeks. The pt would like to have Watchman device placement in future. 3. Chronic Systolic HF - stable; on Coreg and Entresto; He was on Metolazone which was d/deni by Dr Gary 4. Non-ischemic CMY with hx of [facility] AICD placement in 01/2019 5. S/p Sigmoid Mass resection in 12/2019 6. DM type 2 7. HLD - on Crestor 8. Fatty Liver 9. CKD - stable 10. mild CAD MAR reviewed * From Cardiac standpoint, the pt is stable to d/c home * the pt will f/u with Dr Watkins' office in 2 wks
[2020-01-11 15:27] VITALS: BP 121/61; TEMP 97.6
--- NOTE | 2020-01-12 08:49 | DIS ---
DATE OF ADMISSION: 01/10/2020 DATE OF DISCHARGE: 01/11/2020 DISCHARGE DISPOSITION: Home. FOLLOWUP: 1. Follow up with primary care physician, Dr. Henry in 1 week. 2. Follow up with electrophysiology, Dr. Helms and Dr. Watkins as scheduled. 3. Basic metabolic profile after 3 days is recommended. Primary care physician advised to follow. DISCHARGE MEDICATIONS: 1. Amiodarone taper. 2. Coreg dose was increased to 6.25 mg twice a day. The patient was seen and examined on the day of discharge. Denies any new complaints. No chest pain, shortness of breath or palpitations reported. Vital signs showed temperature of 97.6, pulse rate of 68, respirations of 17 with blood pressure of 121/61, O2 saturation of 98% on room air. BRIEF HOSPITAL COURSE: The patient is a 70 - year-old male with recent hospitalization for rectosigmoid mass, requiring colon resection, presented to the hospital with AICD firing. Please refer to the history and physical for further details. The patient was admitted to the telemetry unit with the above diagnosis. The patient was evaluated by Cardiology and Electrophysiology. He had electrolyte abnormalities including hypokalemia and hypomagnesemia, which were replaced. Hypokalemia, hypomagnesemia, and hyponatremia which were corrected. Repeat electrolytes after 3 days are recommended. He was also started on amiodarone taper by Dr. Helms. He was advised to follow up with Electrophysiology in 2 to 3 weeks. Risks and side effects of amiodarone were discussed with the patient. FINAL DIAGNOSES: 1. Implantable cardioverter defibrillator discharge due to ventricular tachycardia. 2. History of chronic systolic heart failure. Most recent ejection fraction showed ejection fraction 45% to 50%. 3. Mild coronary artery disease. 4. Chronic atrial fibrillation. 5. History of dual chamber [facility] automatic implantable cardioverter defibrillator placed in 2019. 6. History of gastrointestinal bleed due to perirectal mass status post resection in January 07. 7. History of polio. 8. Diabetes mellitus type 2. 9. Hyperlipidemia. 10. Fatty liver. 11. Electrolyte abnormalities including hyponatremia, hypokalemia, and hypomagnesemia. 12. Chronic anemia probably due to chronic gastrointestinal bleeding from colorectal mass. 13. The patient understands the above plan of care. Job ID: [id number] [facility]
--- NOTE | 2020-01-13 17:39 | EKG ---
Test Reason : Blood Pressure : / mmHG Vent. Rate : 071 BPM Atrial Rate : 071 BPM P-R Int : 000 ms QRS Dur : 094 ms QT Int : 454 ms P-R-T Axes : 000 048 -47 degrees QTc Int : 493 ms Demand pacemaker; interpretation is based on intrinsic rhythm Intermittent Ventriculr pacing, with PVC's Probable underlying atrial fibrillation Nonspecific T wave abnormality Prolonged QT Current undetermined rhythm precludes rhythm comparison, needs review Nonspecific T wave abnormality now evident in Anterior leads Confirmed by DR. Estephanie SAUCEDO ([id number]) on 01/13/2020 5:39:09 PM Referred By: CORRINE Confirmed By:DR. Estephanie SAUCEDO
== END 2020-01-11 16:40 | disposition home or self-care (01) | DRG 309 ==
LOC: ERS 02:55 → 2NO 07:08
PROVIDERS: ADMIT Internal Medicine; ATTEND Internal Medicine
DX: I47.2 Ventricular tachycardia (principal); E87.1 Hypo-osmolality and hyponatremia; I50.22 Chronic systolic (congestive) heart failure; I42.8 Other cardiomyopathies; I13.0 Hypertensive heart and chronic kidney disease with heart failure and stage 1 through stage 4 chronic kidney disease, or unspecified chronic kidney disease; K76.0 Fatty (change of) liver, not elsewhere classified; E11.22 Type 2 diabetes mellitus with diabetic chronic kidney disease; D50.0 Iron deficiency anemia secondary to blood loss (chronic); E78.5 Hyperlipidemia, unspecified; E87.6 Hypokalemia; E83.42 Hypomagnesemia; I25.10 Atherosclerotic heart disease of native coronary artery without angina pectoris; E78.00 Pure hypercholesterolemia, unspecified; I08.1 Rheumatic disorders of both mitral and tricuspid valves; N18.9 Chronic kidney disease, unspecified; I48.20 Chronic atrial fibrillation, unspecified; D63.1 Anemia in chronic kidney disease; K21.9 Gastro-esophageal reflux disease without esophagitis; Z86.12 Personal history of poliomyelitis; Z95.810 Presence of automatic (implantable) cardiac defibrillator; Z88.5 Allergy status to narcotic agent; Z88.0 Allergy status to penicillin; Z79.4 Long term (current) use of insulin; Z88.8 Allergy status to other drugs, medicaments and biological substances; Z79.01 Long term (current) use of anticoagulants; Z87.11 Personal history of peptic ulcer disease
CPT/HCPCS: 36415; 36416; 71045; 80048; 80053; 83735; 84484; 85025; 93005; 93010; J1815; J3475; J3480; J3490; J7050

== ENCOUNTER 2020-03-24 09:12 | Day surgery (SDC) | payer BC, OTHER ==
[2020-03-23 13:37] VITALS: BMI 27.6
[2020-03-24] MEDS ORDERED: PROPOFOL 200 MG/20 ML VIAL ONE (09:29)
[2020-03-24] MEDS ORDERED: Lidocaine 1% PF 5 ML VIAL ONE (09:29)
--- NOTE | 2020-03-24 18:50 | OP ---
DATE OF PROCEDURE: 03/24/2020 PROCEDURE PERFORMED: Internal cardioversion. ADDITIONAL REFERRING PHYSICIAN: Cristofer Watkins MD REASON FOR PROCEDURE: Mr. Aguilar is a 70-year-old man with history of persisting atrial fibrillation, nonischemic cardiomyopathy, who had received ICD shocks we loaded him with amiodarone over a month ago. He persistent atrial fibrillation, now that he is on amiodarone, we will re-attempt cardioversion. He is also being well anticoagulated without interruption as well. DESCRIPTION OF PROCEDURE: The patient received propofol by Anesthesia specialist. After adequate level of sedation achieved, an internal 40-joule shock delivered through the device, which promptly converted the patient back to sinus rhythm, atrially paced rhythm. CONCLUSION: Successful internal cardioversion. PLAN: Continue oral anticoagulation, amiodarone for now. Routine followup. Job ID: [id number]
== END 2020-03-24 13:00 | disposition home or self-care (01) ==
LOC: CCL 09:12
PROVIDERS: ATTEND Internal Medicine Cardiovascular Disease
PROC: 5A2204Z Restoration of Cardiac Rhythm, Single (ICD-10-PCS; principal; 2020-03-24)
DX: I48.19 Other persistent atrial fibrillation (principal); I42.8 Other cardiomyopathies; I11.0 Hypertensive heart disease with heart failure; I50.22 Chronic systolic (congestive) heart failure; E11.9 Type 2 diabetes mellitus without complications; I25.10 Atherosclerotic heart disease of native coronary artery without angina pectoris; K21.9 Gastro-esophageal reflux disease without esophagitis; Z79.01 Long term (current) use of anticoagulants; Z79.4 Long term (current) use of insulin; Z79.84 Long term (current) use of oral hypoglycemic drugs; Z79.899 Other long term (current) drug therapy; Z88.1 Allergy status to other antibiotic agents; Z88.8 Allergy status to other drugs, medicaments and biological substances; Z95.810 Presence of automatic (implantable) cardiac defibrillator; Z88.0 Allergy status to penicillin
CPT/HCPCS: 92960; J2704

== ENCOUNTER 2020-05-18 07:32 | Outpatient (CLI) | payer BC, OTHER ==
--- NOTE | 2020-05-18 08:01 | ULT ---
GALLBLADDER ULTRASOUND: HISTORY:Transaminitis FINDINGS: The liver demonstrates homogeneous echotexture without focal mass or intrahepatic biliary ductal dila tation. No gallstones, gallbladder wall thickening or pericholecystic fluid are seen. The pancreas is not satisfactorily visualized due to overlying bowel gas. There is a 1.4 cm cyst lupillo ing from the right kidney. No right-sided hydronephrosis seen. The common duct [id number] in diameter. No free fluid is seen in the Granados's pouch. IMPRESSION: Right renal cyst.
== END 2020-05-18 07:33 | disposition home or self-care (01) ==
LOC: BICULT 07:32
PROVIDERS: ATTEND Family Medicine
DX: R74.01 Elevation of levels of liver transaminase levels (principal); N28.1 Cyst of kidney, acquired
CPT/HCPCS: 76705

== ENCOUNTER 2020-07-05 13:51 | Outpatient (CLI) | payer BC, OTHER ==
[~2020-07-05 13:51] MED LIST: Iopamidol-370 76% 500 ML 1 ML ONE
--- NOTE | 2020-07-05 14:53 | CT ---
EXAM: CT chest, abdomen, and pelvis with IV contrast: HISTORY: Sigmoid neoplasm, colon cancer post colon resection. COMPARISON: CTA thorax on 03/18/[address] abdomen and pelvis on 12/31/2019 FINDINGS: CT THORAX: Lungs: There are scattered peripheral linear densities predominantly at each lung base likely due to mild chronic interstitial lung changes. There is an area of pleural thickening at the lateral aspect of the lingula with associated calcifications with adjacent linear densities likely due to an area of pleural and parenchymal scarring. No pulmonary nodule or mass is seen. No pleural effusion is identified. Lymph nodes: No enlarged lymph nodes are seen by CT size criteria. Mediastinum: Vascular calcifications are seen in the coronary arteries and in the thoracic aorta. Carolann l lead left subclavian AICD device is again present. Heart is mildly enlarged. Chest wall: No abnormalities CT ABDOMEN AND PELVIS: Liver: Within normal limits. Gallbladder: Within normal limits. Pancreas: Within normal limits. Spleen: Within normal limits. Adrenal glands: Within normal limits. Kidneys: Stable 11 mm hypodense lesion superior pole right kidney presumably represents a cyst. Mild scarring left kidney. No hydronephrosis. Urinary Bladder: Suggested mild thickening anterior aspect urinary bladder. This is probably attribut able to incomplete distention, and there is no adjacent perivesicular inflammatory stranding. Reproductive organs: Within normal limits for patient's age. Bowel: Evidence of anastomosis sigmoid colon colon is present. Colonic diverticuli are present. Small amount retained fecal material is seen in the colon. Loops of small bowel are normal in caliber. Appendix is normal in caliber. Adenopathy:No enlarged lymph nodes are seen by CT size criteria. Peritoneum: No free fluid or fluid collection is seen. No free intraperitoneal gas is identified. Abdominal wall: Midline scarring in the infraumbilical location and in a periumbilical location. Evid ence of a supraumbilical ventral abdominal hernia repair. Osseous structures: Degenerative changes are seen in the spine. There is complete atrophy of the left psoas and iliopsoas as well as iliac musculature with complete atrophy of the left gluteal musculature. IMPRESSION: 1. Interval postoperative changes in the region of the sigmoid colon with anastomosis present. 2. No CT findings to suggest metastatic disease in the chest, abdomen, or pelvis. 3. Mild cardiomegaly. 4. Resolution of bilateral pleural effusions noted on prior CTA chest. 5. Difficult to characterize stable hypodense lesion right kidney. 6. Persistent atrophy left psoas and iliopsoas as well as iliacus musculature as well as complete atr ophy of the left gluteal musculature. Clinical correlation suggested.
== END 2020-07-05 13:52 | disposition home or self-care (01) ==
LOC: BICCT 13:51
PROVIDERS: ATTEND Internal Medicine Hematology & Oncology
DX: C18.7 Malignant neoplasm of sigmoid colon (principal); I51.7 Cardiomegaly; J90 Pleural effusion, not elsewhere classified; N28.9 Disorder of kidney and ureter, unspecified; Z98.890 Other specified postprocedural states
CPT/HCPCS: 71260; 74177; Q9967

== ENCOUNTER 2020-11-25 13:25 | Emergency (ER) | payer BC, OTHER ==
[2020-11-25] MEDS ORDERED: Acetaminophen 500 MG TAB ONE (14:01)
== END 2020-11-25 16:30 | disposition home or self-care (01) ==
LOC: ERS 13:25
DX: I11.0 Hypertensive heart disease with heart failure (principal); I50.9 Heart failure, unspecified; I25.10 Atherosclerotic heart disease of native coronary artery without angina pectoris; I48.91 Unspecified atrial fibrillation; E11.9 Type 2 diabetes mellitus without complications; E78.5 Hyperlipidemia, unspecified; E78.00 Pure hypercholesterolemia, unspecified
CPT/HCPCS: 93005

== ENCOUNTER 2021-03-15 08:12 | Outpatient (CLI) | payer BC, OTHER | END 2021-03-15 08:13 | disposition home or self-care (01) | LOC: BICRAD 08:12 | PROVIDERS: ATTEND Internal Medicine Cardiovascular Disease | DX: I48.11 Longstanding persistent atrial fibrillation (principal); Z92.29 Personal history of other drug therapy | CPT/HCPCS: 71046 ==

== ENCOUNTER 2021-07-04 07:26 | Outpatient (CLI) | payer BC, OTHER ==
[2021-07-04] MEDS ORDERED: Iopamidol-370 76% 500 ML 1 ML ONE (11:17)
== END 2021-07-04 07:27 | disposition home or self-care (01) ==
LOC: BICCT 07:26
PROVIDERS: ATTEND Internal Medicine Hematology & Oncology
DX: C18.7 Malignant neoplasm of sigmoid colon (principal); E66.9 Obesity, unspecified; R91.1 Solitary pulmonary nodule; N28.9 Disorder of kidney and ureter, unspecified; I51.7 Cardiomegaly; Z98.890 Other specified postprocedural states
CPT/HCPCS: 71260; 74177; 82565

== ENCOUNTER 2021-07-05 07:52 | Outpatient (CLI) | payer BC, OTHER ==
[2021-07-05 18:14] LABS: SARS-CoV-2 PCR by NAA Not Detected (NotDetected)
== END 2021-07-05 07:53 | disposition home or self-care (01) ==
LOC: LABBT 07:52
PROVIDERS: ATTEND Internal Medicine Gastroenterology
DX: Z01.812 Encounter for preprocedural laboratory examination (principal); C19 Malignant neoplasm of rectosigmoid junction; Z20.822 Contact with and (suspected) exposure to COVID-19
CPT/HCPCS: U0003; U0005

== ENCOUNTER 2021-07-10 10:27 | Day surgery (SDC) | payer BC, OTHER ==
[2021-07-09 09:38] VITALS: BMI 32.6
[2021-07-10] MEDS ORDERED: Ketamine 50 MG/ML (10ML VIAL) ONE (12:41)
[2021-07-10] MEDS ORDERED: PROPOFOL 200 MG/20 ML VIAL ONE (13:03)
[2021-07-10] MEDS ORDERED: Lidocaine 1% PF 5 ML VIAL ONE (13:03)
== END 2021-07-10 15:30 | disposition home or self-care (01) ==
LOC: SDC 10:27
PROVIDERS: ATTEND Internal Medicine Gastroenterology
PROC: 0DBL8ZX Excision of Transverse Colon, Via Natural or Artificial Opening Endoscopic, Diagnostic (ICD-10-PCS; principal; 2021-07-10)
PROC: 0DBK8ZX Excision of Ascending Colon, Via Natural or Artificial Opening Endoscopic, Diagnostic (ICD-10-PCS; principal; 2021-07-10)
PROC: 0DBN8ZX Excision of Sigmoid Colon, Via Natural or Artificial Opening Endoscopic, Diagnostic (ICD-10-PCS; principal; 2021-07-10)
DX: Z12.11 Encounter for screening for malignant neoplasm of colon (principal); D12.2 Benign neoplasm of ascending colon; D12.3 Benign neoplasm of transverse colon; D12.5 Benign neoplasm of sigmoid colon; K57.30 Diverticulosis of large intestine without perforation or abscess without bleeding; Q43.8 Other specified congenital malformations of intestine; K64.8 Other hemorrhoids; I48.91 Unspecified atrial fibrillation; I10 Essential (primary) hypertension; K76.0 Fatty (change of) liver, not elsewhere classified; E11.9 Type 2 diabetes mellitus without complications; Z85.048 Personal history of other malignant neoplasm of rectum, rectosigmoid junction, and anus; Z86.12 Personal history of poliomyelitis; Z79.01 Long term (current) use of anticoagulants; Z79.4 Long term (current) use of insulin; Z79.84 Long term (current) use of oral hypoglycemic drugs; Z79.899 Other long term (current) drug therapy; Z88.0 Allergy status to penicillin; Z88.8 Allergy status to other drugs, medicaments and biological substances; Z90.49 Acquired absence of other specified parts of digestive tract; Z95.810 Presence of automatic (implantable) cardiac defibrillator
CPT/HCPCS: 36416; 88304; 88305; 93005; 93010; J2704

== ENCOUNTER 2022-01-31 10:10 | Outpatient (CLI) | payer BC, OTHER | END 2022-01-31 10:11 | disposition home or self-care (01) | LOC: BICRAD 10:10 | PROVIDERS: ATTEND Internal Medicine Cardiovascular Disease | DX: I48.91 Unspecified atrial fibrillation (principal); Z87.19 Personal history of other diseases of the digestive system | CPT/HCPCS: 71046 ==

== ENCOUNTER 2022-02-15 13:20 | Outpatient (CLI) | payer BC, OTHER ==
[2022-02-15] MEDS ORDERED: Iopamidol-370 76% 500 ML 1 ML ONE (15:31)
== END 2022-02-15 13:21 | disposition home or self-care (01) ==
LOC: BICCT 13:20
PROVIDERS: ATTEND Family Medicine
DX: R10.12 Left upper quadrant pain (principal)
CPT/HCPCS: 74160

== ENCOUNTER 2022-04-05 15:29 | Inpatient (IN) | payer BC, OTHER, MEDICARE ==
[2022-04-05] MEDS ORDERED: Morphine 4 MG/ML VIAL ONE ×2 (16:02→17:12)
[2022-04-05] MEDS ORDERED: Morphine 2 MG/ML VIAL ONE ×2 (16:02→17:12)
[2022-04-05 16:41] LABS: #Eosinphils 0.1 thou/uL (0.0-0.7); #Lymphocytes 0.3 thou/uL (1.20-3.40); #Monocytes 0.7 thou/uL (0.11-0.59); #Neutrophils 4.1 thou/uL (1.40-6.50); %Basophils 0.7 % (0.0-1.0); %Eosinophils 2.2 % (0.0-10.0); %Lymphocytes 5.9 % (21.0-51.0); %Monocytes 12.8 % (0.0-10.0); %Neutrophils 78.3 % (42.0-75.0); Hemoglobin 16.4 g/dL (14.0-18.0); Mean Corpuscular Hemoglobin 32.2 pg (27.0-31.0); Mean Corpuscular Volume 94.6 fL (78.0-98.0); Mean Platelet Volume 8.4 fL (7.4-10.4); Platelet Count 103 thou/uL (130-400); RBC Distribution Width 12.7 % (11.5-14.5); Red Blood Cell (RBC) Count 5.11 mill/uL (4.70-6.10); White Blood Cell (WBC) Count 5.3 thou/uL (4.8-10.8)
[2022-04-05 17:02] LABS: ALT (SGPT) 18 U/L (8-55); AST (SGOT) 18 U/L (5-34); Albumin 3.8 g/dL (3.4-4.8); Alkaline Phosphatase 63 U/L (40-110); Anion Gap 20 mmol/L (10-20); BUN (Urea Nitrogen) 17 mg/dL (8.4-25.7); Calc. Creatinine Clearance 0 mL/min (70-130); Calcium 8.5 mg/dL (7.8-10.44); Carbon Dioxide 20 mmol/L (23-31); Chloride 95 mmol/L (98-107); Estimated GFR 86; Globulin 2.8 g/dL (2.4-3.5); Glucose 284 mg/dL (83-110); Potassium 4.1 mmol/L (3.5-5.1); Protein, Total 6.6 g/dL (5.8-8.1); Sodium 131 mmol/L (136-145)
[2022-04-05 17:03] LABS: Platelet Morphology Comment Appears Decreased; RBC Morphology Normal
[2022-04-05] MEDS ORDERED: Acetaminophen 325 MG TAB PO PRN (18:59)
[2022-04-05] MEDS ORDERED: Dextrose 50% Abboject 50 ML SYRINGE SLOW IVP PRN (18:59)
[2022-04-05] MEDS ORDERED: Ondansetron PF 4 MG/2 ML Vial IVP PRN (18:59)
[2022-04-05] MEDS ORDERED: Dextrose 5% in Water 1,000 ML IV PRN (18:59)
[2022-04-05] MEDS ORDERED: Sodium Chloride 0.9% 1,000 ML IV SCH (19:15)
[2022-04-05] MEDS: Morphine 2 MG/ML VIAL SLOW IVP PRN ×2 (20:23→22:37)
[2022-04-05] MEDS: Famotidine/PF 20 mg/2ml Vial SLOW IVP SCH (20:24)
[2022-04-05] MEDS: Acetaminophen/Codeine 30-300mg Tablet PO SCH (20:24)
[2022-04-05] MEDS ORDERED: TETANUS, DIPHTHERIA TOX,ADULT (TDVAX) 0.5 ML VIAL IM ONE (21:00)
[2022-04-05 23:15] VITALS: BMI 34.4
[2022-04-06] MEDS: Acetaminophen/Codeine 30-300mg Tablet PO SCH ×2 (02:39→09:13)
[2022-04-06] MEDS: Morphine 2 MG/ML VIAL SLOW IVP PRN ×2 (02:39→06:09)
[2022-04-06 05:27] LABS: SARS-CoV-2 NAA Rapid Test DETECTED (NotDetected)
[2022-04-06] MEDS: HumaLOG 300 UNITS/3 ML VIAL SC PRN ×3 (06:09→20:53)
[2022-04-06 06:52] LABS: Phosphorus 2.7 mg/dL (2.3-4.7)
[2022-04-06 07:00] LABS: Anion Gap 13 mmol/L (10-20); BUN (Urea Nitrogen) 15 mg/dL (8.4-25.7); Calc. Creatinine Clearance 106 mL/min (70-130); Carbon Dioxide 27 mmol/L (23-31); Chloride 95 mmol/L (98-107); Estimated GFR 88; Glucose 212 mg/dL (83-110); Magnesium 1.9 mg/dL (1.6-2.6); Potassium 3.6 mmol/L (3.5-5.1); Sodium 131 mmol/L (136-145)
[2022-04-06] MEDS ORDERED: Clindamycin/D5W 900 MG in Premix Bag 1 BAG IVPB SCH (08:00)
[2022-04-06 09:04] LABS: Band 17 % (5-11); Eosinophils 1 % (0-10); Hemoglobin 15.5 g/dL (14.0-18.0); Lymphocytes 4 % (21-51); MDiff Complete? YES; Mean Corpuscular HGB CONC 34.6 g/dL (32.0-36.0); Mean Corpuscular Hemoglobin 33.3 pg (27.0-31.0); Mean Corpuscular Volume 96.3 fL (78.0-98.0); Mean Platelet Volume 8.2 fL (7.4-10.4); Metamyelocyte 1 % (0-0); Monocytes 32 % (0-10); Neutrophil 42 % (42-75); Platelet Count 87 thou/uL (130-400); Platelet Morphology Comment Appears Decreased; RBC Distribution Width 12.8 % (11.5-14.5); RBC Morphology Normal; Reactive Lymphocytes 3 % (0-10); Red Blood Cell (RBC) Count 4.67 mill/uL (4.70-6.10)
[2022-04-06] MEDS: Famotidine/PF 20 mg/2ml Vial SLOW IVP SCH ×2 (09:13→20:55)
[2022-04-06] MEDS ORDERED: Morphine 2 MG/ML VIAL SLOW IVP PRN (09:19)
[2022-04-06] MEDS ORDERED: traMADol HCl 50 MG TAB PO PRN (09:19)
[2022-04-06] MEDS ORDERED: Potassium Phosphate 15 MMOL in Sodium Chloride 0.9% 250 ML 250 ML IVPB SCH (09:30)
[2022-04-06] MEDS ORDERED: Levofloxacin 500 mg/D5W 100 ml Premix Bag ONE (10:17)
[2022-04-06] MEDS ORDERED: Clindamycin/D5W 900 mg/50 ml Premix Bag ONE (10:18)
[2022-04-06] MEDS ORDERED: Promethazine HCl 25 MG/ML VIAL IM PRN (10:28)
[2022-04-06] MEDS ORDERED: Promethazine HCl 25 MG/ML VIAL IVPB PRN (10:28)
[2022-04-06] MEDS ORDERED: Ondansetron HCl/PF 4 MG/2 ML Vial IVP PRN (10:28)
[2022-04-06] MEDS ORDERED: Lidocaine 1% MPF 2 ML VIAL ONE (10:30)
[2022-04-06] MEDS ORDERED: fentaNYL Citrate/PF 100 MCG/2 ML SYRINGE ONE (10:45)
[2022-04-06] MEDS ORDERED: PROPOFOL 200 MG/20 ML VIAL ONE (10:54)
[2022-04-06] MEDS ORDERED: Dexamethasone 20 MG/5 ML VIAL ONE (10:54)
[2022-04-06] MEDS ORDERED: Ondansetron PF 4 MG/2 ML Vial ONE (10:54)
[2022-04-06] MEDS ORDERED: Phenylephrine 10 MG/ML VIAL ONE (10:54)
[2022-04-06] MEDS ORDERED: Fentanyl 100 MCG/2 ML VIAL ONE (11:50)
[2022-04-06] MEDS: Acetaminophen 500 MG TAB PO SCH ×2 (15:08→22:11)
[2022-04-06] MEDS: Ibuprofen 200 MG TAB PO SCH ×2 (15:09→20:53)
[2022-04-06] MEDS: Clindamycin/D5W 900 MG in Premix Bag 1 BAG IVPB SCH (18:03)
[2022-04-06] MEDS: traMADol HCl 50 MG TAB PO PRN (18:03)
[2022-04-06] MEDS: Sacubitril 49 MG/Valsartan 51 MG TABLET PO SCH (20:52)
[2022-04-06] MEDS: Amiodarone 200 MG TAB PO SCH (20:52)
[2022-04-06] MEDS: Carvedilol 6.25 MG TAB PO SCH (20:53)
[2022-04-07] MEDS: traMADol HCl 50 MG TAB PO PRN ×4 (02:02→22:38)
[2022-04-07] MEDS: Acetaminophen 500 MG TAB PO SCH ×4 (02:03→21:05)
[2022-04-07] MEDS: Clindamycin/D5W 900 MG in Premix Bag 1 BAG IVPB SCH (02:03)
[2022-04-07] MEDS: HumaLOG 300 UNITS/3 ML VIAL SC PRN ×3 (05:44→21:13)
[2022-04-07] MEDS: Ibuprofen 200 MG TAB PO SCH ×3 (05:44→21:06)
[2022-04-07 06:39] LABS: Anion Gap 16 mmol/L (10-20); BUN (Urea Nitrogen) 21 mg/dL (8.4-25.7); Calc. Creatinine Clearance 105 mL/min (70-130); Carbon Dioxide 21 mmol/L (23-31); Chloride 99 mmol/L (98-107); Estimated GFR 87; Glucose 313 mg/dL (83-110); Magnesium 2.2 mg/dL (1.6-2.6); Phosphorus 3.8 mg/dL (2.3-4.7); Potassium 4.4 mmol/L (3.5-5.1); Sodium 132 mmol/L (136-145)
[2022-04-07 06:40] LABS: Band 17 % (5-11); Hemoglobin 13.9 g/dL (14.0-18.0); Lymphocytes 2 % (21-51); MDiff Complete? YES; Mean Corpuscular HGB CONC 34.2 g/dL (32.0-36.0); Mean Corpuscular Hemoglobin 33.1 pg (27.0-31.0); Mean Corpuscular Volume 96.7 fL (78.0-98.0); Mean Platelet Volume 8.7 fL (7.4-10.4); Monocytes 17 % (0-10); Neutrophil 64 % (42-75); Platelet Count 105 thou/uL (130-400); Platelet Morphology Comment Appears Decreased; RBC Distribution Width 12.9 % (11.5-14.5); Red Blood Cell (RBC) Count 4.21 mill/uL (4.70-6.10)
[2022-04-07] MEDS ORDERED: Insulin Glargine 30 UNITS/0.3 ML VIAL SC SCH ×2 (09:00→21:00)
[2022-04-07] MEDS: Sacubitril 49 MG/Valsartan 51 MG TABLET PO SCH ×2 (09:24→21:07)
[2022-04-07] MEDS: Carvedilol 6.25 MG TAB PO SCH ×2 (09:24→21:07)
[2022-04-07] MEDS: Famotidine/PF 20 mg/2ml Vial SLOW IVP SCH ×2 (09:25→22:38)
[2022-04-07] MEDS: Amiodarone 200 MG TAB PO SCH (21:06)
[2022-04-07] MEDS: Insulin Glargine 30 UNITS/0.3 ML VIAL SC SCH (21:07)
[2022-04-07] MEDS ORDERED: Rosuvastatin 5 MG TAB PO SCH (21:45)
[2022-04-08] MEDS: Acetaminophen 500 MG TAB PO SCH ×4 (03:47→21:14)
[2022-04-08] MEDS: traMADol HCl 50 MG TAB PO PRN (05:26)
[2022-04-08] MEDS: Ibuprofen 200 MG TAB PO SCH (05:26)
[2022-04-08] MEDS: HumaLOG 300 UNITS/3 ML VIAL SC PRN ×3 (05:31→21:17)
[2022-04-08 06:13] LABS: #Lymphocytes 0.4 thou/uL (1.20-3.40); #Monocytes 0.5 thou/uL (0.11-0.59); #Neutrophils 2.7 thou/uL (1.40-6.50); %Basophils 0.2 % (0.0-1.0); %Eosinophils 0.8 % (0.0-10.0); %Lymphocytes 10.9 % (21.0-51.0); %Monocytes 13.2 % (0.0-10.0); Hemoglobin 13.7 g/dL (14.0-18.0); Mean Corpuscular Volume 97.1 fL (78.0-98.0); Mean Platelet Volume 8.1 fL (7.4-10.4); Platelet Count 109 thou/uL (130-400); RBC Distribution Width 12.9 % (11.5-14.5); Red Blood Cell (RBC) Count 4.27 mill/uL (4.70-6.10); White Blood Cell (WBC) Count 3.6 thou/uL (4.8-10.8)
[2022-04-08] MEDS: Sacubitril 49 MG/Valsartan 51 MG TABLET PO SCH ×2 (08:34→21:15)
[2022-04-08] MEDS: Carvedilol 6.25 MG TAB PO SCH ×2 (08:34→21:16)
[2022-04-08] MEDS: Apixaban 5 MG TAB PO SCH (08:34)
[2022-04-08] MEDS: Famotidine/PF 20 mg/2ml Vial SLOW IVP SCH ×2 (08:35→21:18)
[2022-04-08] MEDS ORDERED: traMADol HCl 50 MG TAB PO PRN (09:00)
[2022-04-08] MEDS ORDERED: Rosuvastatin 5 MG TAB PO SCH ×2 (09:00→21:00)
[2022-04-08] MEDS ORDERED: Aspirin 81 mg Enteric Coated Tablet PO SCH (09:00)
[2022-04-08] MEDS ORDERED: Ibuprofen 200 MG TAB PO PRN (17:13)
[2022-04-08] MEDS: traMADol HCl 50 MG TAB PO SCH ×2 (17:38→23:38)
[2022-04-08] MEDS: Amiodarone 200 MG TAB PO SCH (21:15)
[2022-04-08] MEDS: Insulin Glargine 30 UNITS/0.3 ML VIAL SC SCH (21:17)
[2022-04-08] MEDS: Senokot S 8.6-50 MG TAB PO SCH (21:18)
[2022-04-09] MEDS: Acetaminophen 500 MG TAB PO SCH ×3 (03:56→14:49)
[2022-04-09] MEDS: HumaLOG 300 UNITS/3 ML VIAL SC PRN ×2 (05:54→11:20)
[2022-04-09] MEDS: traMADol HCl 50 MG TAB PO SCH ×2 (05:59→11:19)
[2022-04-09] MEDS: Apixaban 5 MG TAB PO SCH (08:04)
[2022-04-09] MEDS: Famotidine/PF 20 mg/2ml Vial SLOW IVP SCH (08:04)
[2022-04-09] MEDS: Sacubitril 49 MG/Valsartan 51 MG TABLET PO SCH (08:04)
[2022-04-09] MEDS: Carvedilol 6.25 MG TAB PO SCH (08:04)
[2022-04-09] MEDS: Senokot S 8.6-50 MG TAB PO SCH (08:05)
[2022-04-09] MEDS ORDERED: Polyethylene Glycol 3350 17 GM Packet PO SCH (09:00)
[2022-04-09] MEDS ORDERED: Famotidine 20 MG TAB PO SCH (09:00)
[2022-04-09 15:42] VITALS: BP 132/69; TEMP 98.2
== END 2022-04-09 16:55 | DRG 480 ==
LOC: ERS 15:29 → SURG A 17:56
PROVIDERS: ADMIT Surgery; ATTEND Surgery
PROC: 0QS706Z Reposition Left Upper Femur with Intramedullary Internal Fixation Device, Open Approach (ICD-10-PCS; principal; 2022-04-06)
PROC: 8E0ZXY6 Isolation (ICD-10-PCS; 2022-04-06)
DX: S72.22XA Displaced subtrochanteric fracture of left femur, initial encounter for closed fracture (principal); U07.1 COVID-19; S22.089A Unspecified fracture of T11-T12 vertebra, initial encounter for closed fracture; I50.22 Chronic systolic (congestive) heart failure; W18.30XA Fall on same level, unspecified, initial encounter; E11.9 Type 2 diabetes mellitus without complications; I25.10 Atherosclerotic heart disease of native coronary artery without angina pectoris; I48.91 Unspecified atrial fibrillation; E78.00 Pure hypercholesterolemia, unspecified; I11.0 Hypertensive heart disease with heart failure; Z88.0 Allergy status to penicillin; Z88.8 Allergy status to other drugs, medicaments and biological substances; Z79.01 Long term (current) use of anticoagulants; Y92.009 Unspecified place in unspecified non-institutional (private) residence as the place of occurrence of the external cause; Z85.038 Personal history of other malignant neoplasm of large intestine; Z95.810 Presence of automatic (implantable) cardiac defibrillator; Z86.711 Personal history of pulmonary embolism
CPT/HCPCS: 27502; 36415; 36416; 70450; 71045; 72100; 72128; 76000; 80048; 80053; 83735; 84100; 84484; 85025; 93005; 93010; 96374; 96376; C1713; J1100; J1815; J1956; J2270; J2370; J2405; J2704; J3010; J3490; J7050; S0028; U0002

== ENCOUNTER 2022-08-13 08:55 | Outpatient (CLI) | payer BC, OTHER | END 2022-08-13 08:56 | disposition home or self-care (01) | LOC: BICRAD 08:55 | PROVIDERS: ATTEND Neurological Surgery | DX: S22.008A Other fracture of unspecified thoracic vertebra, initial encounter for closed fracture (principal); R06.02 Shortness of breath; M47.816 Spondylosis without myelopathy or radiculopathy, lumbar region; M47.814 Spondylosis without myelopathy or radiculopathy, thoracic region; I51.7 Cardiomegaly; J90 Pleural effusion, not elsewhere classified | CPT/HCPCS: 71046; 72070; 72100 ==

== ENCOUNTER 2022-08-15 10:02 | Outpatient (CLI) | payer BC, OTHER ==
[2022-08-15 11:03] LABS: Hemoglobin 14.3 g/dL (13.5-17.5); Mean Corpuscular HGB CONC 32.5 g/dL (32.0-36.0); Mean Corpuscular Hemoglobin 27.5 pg (27.0-33.0); Mean Corpuscular Volume 84.6 fl (81.2-95.1); Mean Platelet Volume 11.9 fl (7.4-10.4); Platelet Count 143 10x3/uL (150-450); RBC Distribution Width 15.2 % (11.5-14.5); White Blood Cell (WBC) Count 4.4 10x3/uL (3.5-10.5)
[2022-08-15 11:07] LABS: INR-International Normal Ratio 1.3; PTT 34.5 sec (22.0-33.0); Prothrombin Time 13.5 sec (9.5-12.1)
[2022-08-15 11:08] LABS: Anion Gap 16 mmol/L (10-20); BUN (Urea Nitrogen) 19 mg/dL (8.4-25.7); Calc. Creatinine Clearance 0 mL/min (70-130); Calcium 9.3 mg/dL (7.8-10.44); Carbon Dioxide 28 mmol/L (23-31); Chloride 97 mmol/L (98-107); Estimated GFR 59; Glucose 103 mg/dL (83-110); Potassium 3.7 mmol/L (3.5-5.1); Sodium 137 mmol/L (136-145)
[2022-08-15 11:10] LABS: ALT (SGPT) 21 U/L (8-55); AST (SGOT) 24 U/L (5-34); Albumin 3.9 g/dL (3.4-4.8); Alkaline Phosphatase 118 U/L (40-110); Bilirubin, Direct 0.5 mg/dL (0.1-0.3); Bilirubin, Total 1.2 mg/dL (0.2-1.2); Protein, Total 6.9 g/dL (5.8-8.1)
== END 2022-08-15 10:03 | disposition home or self-care (01) ==
LOC: LABBT 10:02
PROVIDERS: ATTEND Internal Medicine Cardiovascular Disease
DX: Z01.812 Encounter for preprocedural laboratory examination (principal); I48.0 Paroxysmal atrial fibrillation
CPT/HCPCS: 80048; 80076; 85027; 85610; 85730

== ENCOUNTER 2022-08-19 06:02 | Day surgery (SDC) | payer BC, OTHER ==
[2022-08-16 09:45] VITALS: BMI 32.1
[2022-08-19] MEDS ORDERED: PROPOFOL 20 ML ONE (08:25)
== END 2022-08-19 09:45 | disposition home or self-care (01) ==
LOC: SDC 06:02
PROVIDERS: ATTEND Internal Medicine Cardiovascular Disease
PROC: 5A2204Z Restoration of Cardiac Rhythm, Single (ICD-10-PCS; principal; 2022-08-19)
DX: I48.11 Longstanding persistent atrial fibrillation (principal); I11.0 Hypertensive heart disease with heart failure; I50.22 Chronic systolic (congestive) heart failure; I42.8 Other cardiomyopathies; E78.00 Pure hypercholesterolemia, unspecified; I25.10 Atherosclerotic heart disease of native coronary artery without angina pectoris; E11.9 Type 2 diabetes mellitus without complications; I47.20 Ventricular tachycardia, unspecified; K21.9 Gastro-esophageal reflux disease without esophagitis; Z79.01 Long term (current) use of anticoagulants; Z79.4 Long term (current) use of insulin; Z79.899 Other long term (current) drug therapy; Z88.0 Allergy status to penicillin; Z88.8 Allergy status to other drugs, medicaments and biological substances; Z95.810 Presence of automatic (implantable) cardiac defibrillator
CPT/HCPCS: 92960; J2704

== ENCOUNTER 2022-10-12 13:59 | Emergency (ER) | payer BC, OTHER ==
[2022-10-12 15:11] LABS: #Eosinphils 0.4 thou/uL (0.0-0.7); #Lymphocytes 0.5 thou/uL (1.20-3.40); #Monocytes 0.6 thou/uL (0.11-0.59); #Neutrophils 2.8 thou/uL (1.40-6.50); %Basophils 0.8 % (0.0-1.0); %Lymphocytes 12.3 % (21.0-51.0); %Monocytes 12.5 % (0.0-10.0); %Neutrophils 64.4 % (42.0-75.0); Hemoglobin 14.6 g/dL (14.0-18.0); Mean Corpuscular HGB CONC 32.8 g/dL (32.0-36.0); Mean Corpuscular Hemoglobin 27.7 pg (27.0-31.0); Mean Corpuscular Volume 84.6 fl (78.0-98.0); Mean Platelet Volume 10.4 fL (7.4-10.4); Platelet Count 128 10x3/uL (130-400); RBC Distribution Width 19.4 % (11.5-14.5); Red Blood Cell (RBC) Count 5.26 mill/uL (4.70-6.10); White Blood Cell (WBC) Count 4.4 10x3/uL (4.8-10.8)
[2022-10-12 15:31] LABS: Anisocytosis SLIGHT = 6-15 cells (100X) (0-5/hpf); MDiff Complete? YES; Ovalocytes SLIGHT = 2-5 cells (100X) (0-1/hpf); Platelet Morphology Comment Appears Decreased; Polychromasia SLIGHT = 2-3 cells (100X) (0-2/hpf); Target Cells SLIGHT = 2-5 cells (100X) (0-1/hpf)
[2022-10-12 15:34] LABS: ALT (SGPT) 25 U/L (8-55); AST (SGOT) 23 U/L (5-34); Albumin 3.7 g/dL (3.4-4.8); Alkaline Phosphatase 220 U/L (40-110); Anion Gap 15 mmol/L (10-20); BUN (Urea Nitrogen) 16 mg/dL (8.4-25.7); Bilirubin, Total 1.4 mg/dL (0.2-1.2); Calc. Creatinine Clearance 0 mL/min (70-130); Calcium 9.2 mg/dL (7.8-10.44); Carbon Dioxide 26 mmol/L (23-31); Chloride 102 mmol/L (98-107); Estimated GFR 83; Globulin 3.7 g/dL (2.4-3.5); Glucose 148 mg/dL (83-110); Potassium 3.6 mmol/L (3.5-5.1); Protein, Total 7.4 g/dL (5.8-8.1); Sodium 139 mmol/L (136-145)
[2022-10-12] MEDS ORDERED: HYDROcodone/Acetaminophen 5/325 mg Tablet ONE (17:52)
== END 2022-10-12 17:53 | disposition home or self-care (01) ==
LOC: ERS 13:59
DX: L03.116 Cellulitis of left lower limb (principal); D72.819 Decreased white blood cell count, unspecified; I25.10 Atherosclerotic heart disease of native coronary artery without angina pectoris; E11.9 Type 2 diabetes mellitus without complications; E78.00 Pure hypercholesterolemia, unspecified; Z79.01 Long term (current) use of anticoagulants; Z79.4 Long term (current) use of insulin
CPT/HCPCS: 36415; 80053; 83605; 85025; 87040

== ENCOUNTER 2022-10-23 08:36 | Outpatient (CLI) | payer BC, OTHER | END 2022-10-23 08:37 | disposition home or self-care (01) | LOC: BICMAMMO 08:36 | PROVIDERS: ATTEND Physician Assistant | DX: Z87.311 Personal history of (healed) other pathological fracture (principal) | CPT/HCPCS: 77080 ==

== ENCOUNTER 2023-05-24 05:06 | Inpatient (IN) | payer BC, MEDICARE ==
[2023-05-24 06:24] LABS: #Basophils 0.1 thou/uL (0.0-0.2); #Eosinphils 0.3 thou/uL (0.0-0.7); #Monocytes 0.7 thou/uL (0.11-0.59); %Basophils 1.1 % (0.0-1.0); %Eosinophils 5.8 % (0.0-10.0); %Lymphocytes 12.9 % (21.0-51.0); %Monocytes 14.4 % (0.0-10.0); %Neutrophils 64.7 % (42.0-75.0); Hematocrit 49.9 % (42.0-52.0); Hemoglobin 17.4 g/dL (14.0-18.0); Mean Corpuscular HGB CONC 34.9 g/dL (32.0-36.0); Mean Corpuscular Hemoglobin 32.6 pg (27.0-31.0); Mean Corpuscular Volume 93.4 fl (78.0-98.0); Mean Platelet Volume 9.9 fL (7.4-10.4); Platelet Count 144 10x3/uL (130-400); RBC Distribution Width 13.2 % (11.5-14.5); Red Blood Cell (RBC) Count 5.34 mill/uL (4.70-6.10); White Blood Cell (WBC) Count 4.7 10x3/uL (4.8-10.8)
[2023-05-24 06:46] LABS: ALT (SGPT) 29 U/L (8-55); AST (SGOT) 22 U/L (5-34); Albumin 4.4 g/dL (3.4-4.8); Alkaline Phosphatase 83 U/L (40-110); Anion Gap 14 mmol/L (10-20); BUN (Urea Nitrogen) 15 mg/dL (8.4-25.7); Bilirubin, Total 0.7 mg/dL (0.2-1.2); Calc. Creatinine Clearance 0 mL/min (70-130); Calcium 10.2 mg/dL (7.8-10.44); Carbon Dioxide 27 mmol/L (23-31); Chloride 99 mmol/L (98-107); Estimated GFR 79; Glucose 321 mg/dL (83-110); Lipase 35 U/L (8-78); Magnesium 1.8 mg/dL (1.6-2.6); Potassium 4.1 mmol/L (3.5-5.1); Protein, Total 7.4 g/dL (5.8-8.1); Sodium 136 mmol/L (136-145)
[2023-05-24 06:50] LABS: Troponin I Less than 0.010 ng/mL (< 0.028)
[2023-05-24] MEDS ORDERED: Bisacodyl 10 MG SUPP PR PRN (09:20)
[2023-05-24] MEDS ORDERED: HumaLOG 300 UNITS/3 ML VIAL SC PRN (09:20)
[2023-05-24] MEDS ORDERED: Glucagon 1 MG/ML KIT IM PRN (09:20)
[2023-05-24] MEDS ORDERED: Dextrose 5% in Water 1,000 ML IV PRN (09:20)
[2023-05-24] MEDS ORDERED: Senokot S 8.6-50 MG TAB PO PRN (09:20)
[2023-05-24] MEDS ORDERED: Bisacodyl 5 MG TAB PO PRN (09:20)
[2023-05-24] MEDS ORDERED: Acetaminophen 325 MG TAB PO PRN (09:20)
[2023-05-24] MEDS ORDERED: Dextrose 50% Abboject 50 ML SYRINGE SLOW IVP PRN (09:20)
[2023-05-24] MEDS ORDERED: Ondansetron PF 4 MG/2 ML Vial IVP PRN (09:20)
[2023-05-24] MEDS ORDERED: Aspirin 325 MG TAB PO SCH ×2 (09:30→15:15)
[2023-05-24 09:47] LABS: Troponin I 0.016 ng/mL (< 0.028)
[2023-05-24 09:53] LABS: Hemoglobin A1c 11.1 % (4.0-6.0)
[2023-05-24 10:18] LABS: Troponin I 0.015 ng/mL (< 0.028)
[2023-05-24 13:48] VITALS: BMI 32.5
[2023-05-24] MEDS ORDERED: Iopamidol-370 76% 500 ML MDV (1 ML CHARGE) ONE (15:50)
[2023-05-24] MEDS: HumaLOG 300 UNITS/3 ML VIAL SC PRN (18:46)
[2023-05-24] MEDS: Amiodarone 200 MG TAB PO SCH (22:00)
[2023-05-24] MEDS: Sacubitril 49 MG/Valsartan 51 MG TABLET PO SCH (22:00)
[2023-05-24] MEDS: Carvedilol 6.25 MG TAB PO SCH (22:01)
[2023-05-24] MEDS: Rosuvastatin 20 MG TAB PO SCH (22:01)
[2023-05-25 05:32] LABS: #Eosinphils 0.3 thou/uL (0.0-0.7); #Monocytes 0.7 thou/uL (0.11-0.59); #Neutrophils 2.6 thou/uL (1.40-6.50); %Basophils 0.9 % (0.0-1.0); %Lymphocytes 15.1 % (21.0-51.0); %Monocytes 16.3 % (0.0-10.0); %Neutrophils 60.8 % (42.0-75.0); Hematocrit 48.3 % (42.0-52.0); Hemoglobin 16.9 g/dL (14.0-18.0); Mean Corpuscular Hemoglobin 32.9 pg (27.0-31.0); Mean Corpuscular Volume 94.2 fl (78.0-98.0); Mean Platelet Volume 10.2 fL (7.4-10.4); Platelet Count 132 10x3/uL (130-400); RBC Distribution Width 13.2 % (11.5-14.5); Red Blood Cell (RBC) Count 5.13 mill/uL (4.70-6.10); White Blood Cell (WBC) Count 4.3 10x3/uL (4.8-10.8)
[2023-05-25 05:53] LABS: Anion Gap 15 mmol/L (10-20); BUN (Urea Nitrogen) 13 mg/dL (8.4-25.7); Calc. Creatinine Clearance 98 mL/min (70-130); Calcium 9.3 mg/dL (7.8-10.44); Carbon Dioxide 30 mmol/L (23-31); Chloride 97 mmol/L (98-107); Estimated GFR 88; Glucose 226 mg/dL (83-110); Magnesium 1.7 mg/dL (1.6-2.6); Potassium 3.7 mmol/L (3.5-5.1); Sodium 138 mmol/L (136-145)
[2023-05-25] MEDS: HumaLOG 300 UNITS/3 ML VIAL SC PRN ×3 (06:32→17:49)
[2023-05-25] MEDS: Aspirin Chewable 81 MG TAB PO SCH (08:19)
[2023-05-25] MEDS: Carvedilol 6.25 MG TAB PO SCH ×2 (08:20→19:40)
[2023-05-25] MEDS: Sacubitril 49 MG/Valsartan 51 MG TABLET PO SCH ×2 (08:20→19:40)
[2023-05-25] MEDS: Amiodarone 200 MG TAB PO SCH (19:39)
[2023-05-25] MEDS: Rosuvastatin 20 MG TAB PO SCH (19:40)
[2023-05-26 05:40] LABS: #Basophils 0.1 thou/uL (0.0-0.2); #Eosinphils 0.3 thou/uL (0.0-0.7); #Monocytes 0.6 thou/uL (0.11-0.59); %Basophils 1.5 % (0.0-1.0); %Eosinophils 7.3 % (0.0-10.0); %Monocytes 16.1 % (0.0-10.0); %Neutrophils 57.5 % (42.0-75.0); Hematocrit 49.9 % (42.0-52.0); Hemoglobin 16.8 g/dL (14.0-18.0); Mean Corpuscular HGB CONC 33.7 g/dL (32.0-36.0); Mean Corpuscular Hemoglobin 32.1 pg (27.0-31.0); Mean Corpuscular Volume 95.2 fl (78.0-98.0); Platelet Count 130 10x3/uL (130-400); RBC Distribution Width 13.2 % (11.5-14.5); Red Blood Cell (RBC) Count 5.24 mill/uL (4.70-6.10); White Blood Cell (WBC) Count 3.4 10x3/uL (4.8-10.8)
[2023-05-26 06:08] LABS: Anion Gap 19 mmol/L (10-20); BUN (Urea Nitrogen) 11 mg/dL (8.4-25.7); Calc. Creatinine Clearance 106 mL/min (70-130); Carbon Dioxide 24 mmol/L (23-31); Chloride 99 mmol/L (98-107); Estimated GFR 92; Glucose 209 mg/dL (83-110); Magnesium 1.6 mg/dL (1.6-2.6); Potassium 3.6 mmol/L (3.5-5.1); Sodium 138 mmol/L (136-145)
[2023-05-26] MEDS: Sacubitril 49 MG/Valsartan 51 MG TABLET PO SCH (08:42)
[2023-05-26] MEDS: Carvedilol 6.25 MG TAB PO SCH (08:42)
[2023-05-26] MEDS: Aspirin Chewable 81 MG TAB PO SCH (08:42)
[2023-05-26] MEDS ORDERED: Empagliflozin 10 MG TAB PO SCH (09:00)
[2023-05-26] MEDS ORDERED: PROPOFOL 200 MG/20 ML VIAL ONE (13:29)
[2023-05-26] MEDS ORDERED: Lidocaine 1% PF 5 ML VIAL ONE (13:29)
[2023-05-26 16:07] VITALS: BP 174/85; TEMP 97.2
== END 2023-05-26 17:44 | disposition home or self-care (01) | DRG 291 ==
LOC: ERS 05:06 → SUATTDRO 05:06 → 2SW 09:20 → OBSVTOIN 05-26 09:42
PROVIDERS: ADMIT Family Medicine; ATTEND Internal Medicine
PROC: 5A2204Z Restoration of Cardiac Rhythm, Single (ICD-10-PCS; principal; 2023-05-26)
DX: I11.0 Hypertensive heart disease with heart failure (principal); I50.43 Acute on chronic combined systolic (congestive) and diastolic (congestive) heart failure; L03.115 Cellulitis of right lower limb; I48.20 Chronic atrial fibrillation, unspecified; E11.9 Type 2 diabetes mellitus without complications; F10.90 Alcohol use, unspecified, uncomplicated; I42.8 Other cardiomyopathies; K21.9 Gastro-esophageal reflux disease without esophagitis; E78.5 Hyperlipidemia, unspecified; E11.51 Type 2 diabetes mellitus with diabetic peripheral angiopathy without gangrene; Z88.0 Allergy status to penicillin; Z88.8 Allergy status to other drugs, medicaments and biological substances; Z79.4 Long term (current) use of insulin; Z79.899 Other long term (current) drug therapy; Z98.890 Other specified postprocedural states; Z95.810 Presence of automatic (implantable) cardiac defibrillator; Z90.89 Acquired absence of other organs
CPT/HCPCS: 36415; 36416; 71045; 71275; 74174; 80048; 80053; 83036; 83690; 83735; 83880; 84484; 85025; 92960; 93005; 94760; 96372; G0378; J1650; J1815; Q9967

== ENCOUNTER 2024-02-03 05:39 | Observation (INO) | payer MEDICARE, OTHER ==
[2024-02-03 06:16] LABS: #Basophils 0.05 10x3/uL (0.0-0.2); %Basophils 1.1 % (0.0-1.0); %Eosinophils 5.9 % (0.0-10.0); %Lymphocytes 14.9 % (21.0-51.0); %Monocytes 15.8 % (0.0-10.0); %Neutrophils 61.6 % (42.0-75.0); Hematocrit 51.5 % (42.0-52.0); Hemoglobin 18.3 g/dL (14.0-18.0); Mean Corpuscular HGB CONC 35.5 g/dL (32.0-36.0); Mean Corpuscular Hemoglobin 33.2 pg (27.0-31.0); Mean Corpuscular Volume 93.5 fL (78.0-98.0); Platelet Count 140 10x3/uL (130-400); RBC Distribution Width 13.6 % (11.5-14.5); Red Blood Cell (RBC) Count 5.51 mill/uL (4.70-6.10)
[2024-02-03 06:50] LABS: ALT (SGPT) 33 U/L (8-55); AST (SGOT) 32 U/L (5-34); Albumin 3.9 g/dL (3.4-4.8); Alkaline Phosphatase 79 U/L (40-110); Anion Gap 20 mmol/L (10-20); BUN (Urea Nitrogen) 24 mg/dL (8.4-25.7); Bilirubin, Total 0.9 mg/dL (0.2-1.2); Calc. Creatinine Clearance 0 mL/min (70-130); Calcium 9.7 mg/dL (7.8-10.44); Carbon Dioxide 23 mmol/L (23-31); Chloride 96 mmol/L (98-107); Estimated GFR 63; Globulin 3.7 g/dL (2.4-3.5); Glucose 245 mg/dL (83-110); Potassium 4.6 mmol/L (3.5-5.1); Protein, Total 7.6 g/dL (5.8-8.1); Sodium 134 mmol/L (136-145)
[2024-02-03 06:53] LABS: Troponin I 0.016 ng/mL (< 0.028)
[2024-02-03] MEDS ORDERED: Acetaminophen 500 MG TAB ONE (07:26)
[2024-02-03 09:49] LABS: Troponin I 0.016 ng/mL (< 0.028)
[2024-02-03] MEDS ORDERED: Acetaminophen 500 MG TAB PO PRN (10:52)
[2024-02-03] MEDS ORDERED: Betamethasone Val 0.1% OINT 15 GM TUBE TOP PRN (10:52)
[2024-02-03] MEDS ORDERED: Acetaminophen 650 MG Suppository PR PRN (10:55)
[2024-02-03] MEDS ORDERED: Dextrose 5% in Water 1,000 ML IV PRN (10:55)
[2024-02-03] MEDS ORDERED: Acetaminophen 325 MG TAB PO PRN (10:55)
[2024-02-03] MEDS ORDERED: Senokot S 8.6-50 MG TAB PO PRN (10:55)
[2024-02-03] MEDS ORDERED: Ondansetron ODT 4 MG TAB PO PRN (10:55)
[2024-02-03] MEDS ORDERED: Ondansetron PF 4 MG/2 ML Vial IVP PRN (10:55)
[2024-02-03] MEDS ORDERED: Calcium Carbonate 500 MG ChewTAB PO PRN (10:55)
[2024-02-03] MEDS ORDERED: Glucagon 1 MG/ML KIT IM PRN (10:55)
[2024-02-03] MEDS ORDERED: Dextrose 50% Abboject 50 ML SYRINGE SLOW IVP PRN (10:55)
[2024-02-03 13:44] LABS: Troponin I 0.015 ng/mL (< 0.028)
[2024-02-03 15:41] VITALS: BMI 31.4
[2024-02-03] MEDS: Insulin Lispro 100 UNIT/ML 10 ML VIAL SC PRN ×2 (18:36→22:37)
[2024-02-03] MEDS: Apixaban 5 MG TAB PO SCH ×2 (18:36→22:35)
[2024-02-03] MEDS: Amiodarone 200 MG TAB PO SCH (22:34)
[2024-02-03] MEDS: Sacubitril 49 MG/Valsartan 51 MG TABLET PO SCH (22:34)
[2024-02-03] MEDS: Carvedilol 6.25 MG TAB PO SCH (22:35)
[2024-02-03] MEDS: Rosuvastatin 10 MG TAB PO SCH (22:36)
[2024-02-04 03:57] LABS: #Basophils 0.03 10x3/uL (0.0-0.2); %Basophils 0.7 % (0.0-1.0); %Eosinophils 6.8 % (0.0-10.0); %Lymphocytes 15.5 % (21.0-51.0); %Monocytes 16.5 % (0.0-10.0); %Neutrophils 59.5 % (42.0-75.0); Hematocrit 51.4 % (42.0-52.0); Hemoglobin 17.6 g/dL (14.0-18.0); Mean Corpuscular HGB CONC 34.2 g/dL (32.0-36.0); Mean Corpuscular Hemoglobin 33.4 pg (27.0-31.0); Mean Corpuscular Volume 97.5 fL (78.0-98.0); Mean Platelet Volume 10.1 fL (7.4-10.4); Platelet Count 129 10x3/uL (130-400); RBC Distribution Width 13.7 % (11.5-14.5); Red Blood Cell (RBC) Count 5.27 mill/uL (4.70-6.10)
[2024-02-04 04:40] LABS: Anion Gap 15 mmol/L (10-20); BUN (Urea Nitrogen) 22 mg/dL (8.4-25.7); Calc. Creatinine Clearance 90 mL/min (70-130); Calcium 9.3 mg/dL (7.8-10.44); Carbon Dioxide 24 mmol/L (23-31); Chloride 105 mmol/L (98-107); Estimated GFR 81; Glucose 152 mg/dL (83-110); Potassium 3.6 mmol/L (3.5-5.1); Sodium 140 mmol/L (136-145)
[2024-02-04] MEDS ORDERED: Regadenoson 0.4 MG/5 ML SYRINGE ONE (09:06)
[2024-02-04] MEDS ORDERED: PROPOFOL 200 MG/20 ML VIAL ONE (12:31)
[2024-02-04] MEDS: Alogliptin 6.25 MG TAB PO SCH (14:14)
[2024-02-04] MEDS: Multivitamin W/ Minerals 1 TAB PO SCH (14:14)
[2024-02-04] MEDS: Empagliflozin 10 MG TAB PO SCH (14:14)
[2024-02-04 17:12] VITALS: BP 132/96; TEMP 98.5
== END 2024-02-04 19:20 | disposition home or self-care (01) ==
LOC: ERS 05:39 → ERHOLD 08:44 → 2NO 18:02
PROVIDERS: ADMIT Internal Medicine; ATTEND Internal Medicine
PROC: 5A2204Z Restoration of Cardiac Rhythm, Single (ICD-10-PCS; principal; 2024-02-04)
DX: I48.19 Other persistent atrial fibrillation (principal); I42.9 Cardiomyopathy, unspecified; R07.89 Other chest pain; I87.2 Venous insufficiency (chronic) (peripheral); I48.20 Chronic atrial fibrillation, unspecified; E78.5 Hyperlipidemia, unspecified; I11.0 Hypertensive heart disease with heart failure; I50.32 Chronic diastolic (congestive) heart failure; E11.9 Type 2 diabetes mellitus without complications; Z92.89 Personal history of other medical treatment; Z79.01 Long term (current) use of anticoagulants; Z79.84 Long term (current) use of oral hypoglycemic drugs; Z88.0 Allergy status to penicillin; Z95.810 Presence of automatic (implantable) cardiac defibrillator; Z88.8 Allergy status to other drugs, medicaments and biological substances; Z79.899 Other long term (current) drug therapy; Z86.711 Personal history of pulmonary embolism; Z98.890 Other specified postprocedural states
CPT/HCPCS: 36415; 36416; 71045; 78452; 80048; 80053; 83880; 84484; 85025; 85379; 92960; 93005; 93010; 93017; 94760; A9502; G0378; J2704; J2785

== ENCOUNTER 2024-09-03 17:04 | Inpatient (IN) | payer OTHER, MEDICARE ==
[2024-09-03] MEDS ORDERED: HYDROcodone/Acetaminophen 10/325 mg Tablet ONE (17:41)
[2024-09-03 19:20] LABS: #Basophils 0.06 10x3/uL (0.0-0.2); %Basophils 0.9 % (0.0-1.0); %Eosinophils 2.5 % (0.0-10.0); %Lymphocytes 10.2 % (21.0-51.0); %Neutrophils 75.2 % (42.0-75.0); Hematocrit 50.9 % (42.0-52.0); Hemoglobin 17.9 g/dL (14.0-18.0); Mean Corpuscular HGB CONC 35.2 g/dL (32.0-36.0); Mean Corpuscular Hemoglobin 32.9 pg (27.0-31.0); Mean Corpuscular Volume 93.6 fL (78.0-98.0); Mean Platelet Volume 10.3 fL (7.4-10.4); Platelet Count 144 10x3/uL (130-400); RBC Distribution Width 12.6 % (11.5-14.5); Red Blood Cell (RBC) Count 5.44 mill/uL (4.70-6.10)
[2024-09-03 19:37] LABS: Prothrombin Time 13.1 sec (12.0-14.7)
[2024-09-03 19:38] LABS: PTT 26.4 sec (22.9-36.1)
[2024-09-03 19:41] LABS: ALT (SGPT) 37 U/L (Less than 45); AST (SGOT) 36 U/L (11-34); Albumin 3.8 g/dL (3.1-4.5); Alkaline Phosphatase 76 U/L (40-110); Anion Gap 23 mmol/L (10-20); BUN (Urea Nitrogen) 31 mg/dL (8.4-25.7); Bilirubin, Total 0.8 mg/dL (0.3-1.2); Calc. Creatinine Clearance 0 mL/min (70-130); Calcium 9.3 mg/dL (7.8-10.44); Carbon Dioxide 19 mmol/L (23-31); Chloride 92 mmol/L (98-107); Estimated GFR 51; Globulin 3.8 g/dL (2.4-3.5); Glucose 319 mg/dL (83-110); Potassium 4.7 mmol/L (3.5-5.1); Protein, Total 7.6 g/dL (5.8-8.1); Sodium 129 mmol/L (136-145)
[2024-09-03] MEDS ORDERED: Morphine 4 MG/ML VIAL ONE (19:53)
[2024-09-03 20:12] LABS: Actual Bicarbonate (HCO3v) 16.8 mEq/L (22-28); Base Excess -6.6 mEq/L (-2.0 to +3.0); Hematocrit-VBG 51 % (42.0-52.0); Hemoglobin (Hb) 17.5 g/dL (12.6-17.4); Potassium (VBG) 4.48 mmol/L (3.70-5.30); Sodium 130 mmol/L (133-146); pH (venous) 7.377 (7.32-7.43)
[2024-09-03] MEDS ORDERED: Dextrose 5% in Water 1,000 ML IV PRN (21:16)
[2024-09-03] MEDS ORDERED: Dextrose 50% Abboject 50 ML SYRINGE SLOW IVP PRN (21:16)
[2024-09-03] MEDS ORDERED: hydrALAZINE 20 MG/ML VIAL SLOW IVP PRN (21:16)
[2024-09-03] MEDS ORDERED: Glucagon 1 MG/ML KIT IM PRN (21:16)
[2024-09-03] MEDS ORDERED: Lactated Ringer's 1,000 ML IV SCH (21:30)
[2024-09-03] MEDS ORDERED: Lactated Ringer's 1,000 ML BAG ONE (21:30)
[2024-09-03] MEDS ORDERED: Acetaminophen 325 MG TAB PO PRN (22:04)
[2024-09-03] MEDS ORDERED: Ondansetron ODT 4 MG TAB PO PRN (22:04)
[2024-09-03 22:26] LABS: Anion Gap 19 mmol/L (10-20); BUN (Urea Nitrogen) 26 mg/dL (8.4-25.7); Calc. Creatinine Clearance 0 mL/min (70-130); Calcium 9.1 mg/dL (7.8-10.44); Carbon Dioxide 19 mmol/L (23-31); Chloride 96 mmol/L (98-107); Estimated GFR 64; Glucose 256 mg/dL (83-110); Potassium 4.6 mmol/L (3.5-5.1); Sodium 129 mmol/L (136-145)
[2024-09-03] MEDS: traMADol HCl 50 MG TAB PO PRN (22:30)
[2024-09-03 22:33] VITALS: BMI 32.8
[2024-09-04] MEDS: Morphine 2 MG/ML VIAL SLOW IVP PRN ×2 (00:41→15:34)
[2024-09-04 05:27] LABS: #Basophils 0.05 10x3/uL (0.0-0.2); %Basophils 0.8 % (0.0-1.0); %Eosinophils 3.9 % (0.0-10.0); %Lymphocytes 13.1 % (21.0-51.0); %Monocytes 19.6 % (0.0-10.0); %Neutrophils 60.8 % (42.0-75.0); Hemoglobin 16.2 g/dL (14.0-18.0); Mean Corpuscular HGB CONC 34.5 g/dL (32.0-36.0); Mean Corpuscular Hemoglobin 32.3 pg (27.0-31.0); Mean Corpuscular Volume 93.8 fL (78.0-98.0); Platelet Count 130 10x3/uL (130-400); RBC Distribution Width 12.6 % (11.5-14.5); Red Blood Cell (RBC) Count 5.01 mill/uL (4.70-6.10)
[2024-09-04 05:32] LABS: Anion Gap 20 mmol/L (10-20); BUN (Urea Nitrogen) 25 mg/dL (8.4-25.7); Calc. Creatinine Clearance 82 mL/min (70-130); Calcium 9.1 mg/dL (7.8-10.44); Carbon Dioxide 22 mmol/L (23-31); Chloride 95 mmol/L (98-107); Estimated GFR 70; Glucose 204 mg/dL (83-110); Potassium 4.9 mmol/L (3.5-5.1); Sodium 132 mmol/L (136-145)
[2024-09-04] MEDS: Aspirin Chewable 81 MG TAB PO SCH (13:50)
[2024-09-04] MEDS: Acetaminophen 325 MG TAB PO SCH (15:38)
[2024-09-04] MEDS: Carvedilol 6.25 MG TAB PO SCH (20:50)
[2024-09-04] MEDS: Amiodarone 200 MG TAB PO SCH (20:50)
[2024-09-04] MEDS: Rosuvastatin 10 MG TAB PO SCH (20:50)
[2024-09-05] MEDS: HYDROcodone/Acetaminophen 5/325 mg Tablet PO PRN (03:06)
[2024-09-05] MEDS ORDERED: HYDROmorphone 2 MG/ML VIAL SLOW IVP PRN (07:35)
[2024-09-05] MEDS ORDERED: Promethazine HCl 25 MG/ML VIAL IM PRN (07:35)
[2024-09-05] MEDS ORDERED: Ondansetron HCl/PF 4 MG/2 ML Vial IVP PRN (07:35)
[2024-09-05] MEDS ORDERED: Clindamycin/D5W 900 mg/50 ml Premix Bag ONE (07:43)
[2024-09-05] MEDS ORDERED: fentaNYL PF 100 MCG/2 ML SYRINGE ONE ×2 (07:53→10:40)
[2024-09-05] MEDS ORDERED: PROPOFOL 20 ML ONE (07:53)
[2024-09-05] MEDS ORDERED: PHENYLEPHRINE-NS 100 MCG/ML 10 ML SYRINGE ONE ×2 (07:53→09:38)
[2024-09-05] MEDS ORDERED: Lidocaine 2% 6 ML (Jelly) SYR ONE (07:53)
[2024-09-05] MEDS ORDERED: Dexamethasone 20 MG/5 ML VIAL ONE (07:53)
[2024-09-05] MEDS ORDERED: Ondansetron PF 4 MG/2 ML Vial ONE (07:53)
[2024-09-05] MEDS ORDERED: Lidocaine 1% PF 5 ML VIAL ONE (07:53)
[2024-09-05 08:53] LABS: Anion Gap 25 mmol/L (10-20); BUN (Urea Nitrogen) 30 mg/dL (8.4-25.7); Calc. Creatinine Clearance 75 mL/min (70-130); Calcium 9.6 mg/dL (7.8-10.44); Carbon Dioxide 16 mmol/L (23-31); Chloride 97 mmol/L (98-107); Estimated GFR 63; Glucose 151 mg/dL (83-110); Potassium 5.4 mmol/L (3.5-5.1); Sodium 133 mmol/L (136-145)
[2024-09-05] MEDS ORDERED: Aspirin Chewable 81 MG TAB PO SCH (09:00)
[2024-09-05 09:07] LABS: #Basophils 0.09 10x3/uL (0.0-0.2); %Basophils 1.4 % (0.0-1.0); %Eosinophils 3.2 % (0.0-10.0); %Lymphocytes 13.5 % (21.0-51.0); %Monocytes 18.8 % (0.0-10.0); %Neutrophils 61.4 % (42.0-75.0); Hematocrit 49.5 % (42.0-52.0); Hemoglobin 16.1 g/dL (14.0-18.0); Mean Corpuscular HGB CONC 32.5 g/dL (32.0-36.0); Mean Corpuscular Hemoglobin 33.1 pg (27.0-31.0); Mean Corpuscular Volume 101.6 fL (78.0-98.0); Mean Platelet Volume 10.1 fL (7.4-10.4); Platelet Count 124 10x3/uL (130-400); RBC Distribution Width 12.9 % (11.5-14.5); Red Blood Cell (RBC) Count 4.87 mill/uL (4.70-6.10)
[2024-09-05 09:24] LABS: A1c 419.419 g/dL; Hb (HGBA1c) 4746.0348 umol/L; Hemoglobin A1c 10.2 % (4.0-6.0)
[2024-09-05] MEDS ORDERED: Morphine 2 MG/ML VIAL ONE (10:58)
[2024-09-05] MEDS: Ondansetron PF 4 MG/2 ML Vial IVP PRN (11:25)
[2024-09-05] MEDS: Sodium Chloride 0.45% 1,000 ML IV SCH (11:25)
[2024-09-05] MEDS: Empagliflozin 10 MG TAB PO SCH (11:26)
[2024-09-05] MEDS: Insulin Regular, Human 100 UNIT/ML 10 ML VIAL SC PRN (11:39)
[2024-09-05] MEDS ORDERED: Dextrose 50% Abboject 50 ML SYRINGE SLOW IVP PRN ×2 (12:48→21:11)
[2024-09-05] MEDS: Insulin Regular, Human 100 UNIT/ML 10 ML VIAL IVP SCH ×2 (14:53→22:05)
[2024-09-05] MEDS: Clindamycin/D5W 900 MG in Premix 1 BAG IVPB SCH (14:54)
[2024-09-05] MEDS: LOKELMA 10 GM PACKET PO SCH (14:54)
[2024-09-05 19:58] LABS: Anion Gap 25 mmol/L (10-20); BUN (Urea Nitrogen) 38 mg/dL (8.4-25.7); Calc. Creatinine Clearance 62 mL/min (70-130); Calcium 9.2 mg/dL (7.8-10.44); Carbon Dioxide 17 mmol/L (23-31); Chloride 94 mmol/L (98-107); Estimated GFR 50; Glucose 243 mg/dL (83-110); Potassium 5.8 mmol/L (3.5-5.1); Sodium 130 mmol/L (136-145)
[2024-09-05] MEDS ORDERED: Sodium Bicarbonate 150 MEQ in Dextrose 5 %-0.45 % NaCl 1,000 ML IV SCH (21:15)
[2024-09-05 22:04] LABS: Lactic Acid 1.29 mmol/L (0.50-2.20)
[2024-09-05] MEDS: Calcium Gluconate 4.6 MEQ in Sodium Chloride 0.9% 100 ML IVPB SCH (22:05)
[2024-09-05] MEDS: Senokot S 8.6-50 MG TAB PO SCH (22:05)
[2024-09-05] MEDS: CALCIUM GLUC 1 GM/NS 50 ML 1 GM in Premix 1 BAG IVPB SCH (22:28)
[2024-09-05] MEDS: Sodium Chloride 0.9% 1,000 ML IV SCH (23:08)
[2024-09-05] MEDS: Albuterol 2.5 MG (3 mL) NEB NEB SCH (23:42)
[2024-09-06] MEDS: Clindamycin/D5W 900 MG in Premix 1 BAG IVPB SCH (01:06)
[2024-09-06 03:35] LABS: Hemoglobin 14.5 g/dL (14.0-18.0); Mean Corpuscular Hemoglobin 32.4 pg (27.0-31.0); Mean Corpuscular Volume 98.2 fL (78.0-98.0); Mean Platelet Volume 9.8 fL (7.4-10.4); Platelet Count 149 10x3/uL (130-400); RBC Distribution Width 12.6 % (11.5-14.5); Red Blood Cell (RBC) Count 4.48 mill/uL (4.70-6.10)
[2024-09-06 03:53] LABS: Anion Gap 26 mmol/L (10-20); BUN (Urea Nitrogen) 38 mg/dL (8.4-25.7); Calc. Creatinine Clearance 61 mL/min (70-130); Calcium 9.3 mg/dL (7.8-10.44); Carbon Dioxide 18 mmol/L (23-31); Chloride 94 mmol/L (98-107); Estimated GFR 49; Glucose 182 mg/dL (83-110); Potassium 5.5 mmol/L (3.5-5.1); Sodium 132 mmol/L (136-145)
[2024-09-06] MEDS ORDERED: HumaLOG 300 UNITS/3 ML VIAL SC PRN (04:09)
[2024-09-06] MEDS ORDERED: Dextrose 5 %-0.45 % NaCl 1,000 ML IV SCH (04:15)
[2024-09-06 04:36] LABS: Bacteria/HPF None Seen HPF (None Seen); Bilirubin Negative (Negative); Blood, Urine Negative (Negative); CAUTI Indications for Culture Dysuria,urgency,freq; Clarity Clear (Clear); Glucose, Urine (Dipstick) Greater than 1000 mg/dL (Negative); Ketone, Urine 60 mg/dL (Negative); Leukocyte Negative Leu/uL (Negative); Nitrite Negative (Negative); Protein, Urine (Dipstick) Negative (Neg-Trace); RBC/HPF 0-3 HPF (0-3); Squamous Epithelial None Seen HPF (0-3); Urobilinogen Normal mg/dL (Less than 2); WBC/HPF 0-3 HPF (0-3)
[2024-09-06 04:38] LABS: Urine Culture Reflex No No
[2024-09-06] MEDS ORDERED: Dextrose 50% Abboject 50 ML SYRINGE SLOW IVP PRN (04:40)
[2024-09-06] MEDS: LOKELMA 10 GM PACKET PO SCH ×2 (05:16→14:33)
[2024-09-06] MEDS: Lactated Ringer's 1,000 ML IV SCH (05:17)
[2024-09-06] MEDS: Insulin Regular, Human 100 UNIT/ML 10 ML VIAL IVP SCH (05:20)
[2024-09-06] MEDS: Polyethylene Glycol 3350 17 GM Packet PO SCH (08:58)
[2024-09-06] MEDS: Sodium Chloride 0.9% 500 ML IV SCH (09:03)
[2024-09-06] MEDS: Sodium Chloride 0.9% 1,000 ML IV SCH (09:03)
[2024-09-06] MEDS: Sodium Bicarbonate Tab 325 MG TAB PO SCH (09:10)
[2024-09-06 09:49] LABS: Anion Gap 23 mmol/L (10-20); BUN (Urea Nitrogen) 35 mg/dL (8.4-25.7); Calc. Creatinine Clearance 68 mL/min (70-130); Calcium 9.3 mg/dL (7.8-10.44); Carbon Dioxide 18 mmol/L (23-31); Chloride 94 mmol/L (98-107); Estimated GFR 56; Glucose 259 mg/dL (83-110); Potassium 5.4 mmol/L (3.5-5.1); Sodium 130 mmol/L (136-145)
[2024-09-06] MEDS: Insulin Glargine 30 UNITS/0.3 ML VIAL SC SCH (11:03)
[2024-09-06 12:20] LABS: Anion Gap 21 mmol/L (10-20); BUN (Urea Nitrogen) 34 mg/dL (8.4-25.7); Calc. Creatinine Clearance 69 mL/min (70-130); Carbon Dioxide 19 mmol/L (23-31); Chloride 96 mmol/L (98-107); Estimated GFR 57; Glucose 259 mg/dL (83-110); Potassium 5.2 mmol/L (3.5-5.1); Sodium 131 mmol/L (136-145)
[2024-09-06] MEDS: Insulin Lispro 100 UNIT/ML 10 ML VIAL SC PRN (13:04)
[2024-09-06 17:27] LABS: Phosphorus 3.1 mg/dL (2.5-4.5)
[2024-09-06 20:06] LABS: Anion Gap 17 mmol/L (10-20); BUN (Urea Nitrogen) 31 mg/dL (8.4-25.7); Calc. Creatinine Clearance 67 mL/min (70-130); Calcium 8.7 mg/dL (7.8-10.44); Carbon Dioxide 23 mmol/L (23-31); Chloride 97 mmol/L (98-107); Estimated GFR 56; Glucose 232 mg/dL (83-110); Potassium 4.6 mmol/L (3.5-5.1); Sodium 132 mmol/L (136-145)
[2024-09-06] MEDS: Apixaban 5 MG TAB PO SCH (20:51)
[2024-09-07 05:09] LABS: #Basophils Less than 0.03 10x3/uL (0.0-0.2); %Basophils 0.2 % (0.0-1.0); %Eosinophils 0.5 % (0.0-10.0); %Lymphocytes 9.3 % (21.0-51.0); %Monocytes 19.6 % (0.0-10.0); %Neutrophils 69.2 % (42.0-75.0); Hematocrit 40.6 % (42.0-52.0); Hemoglobin 13.5 g/dL (14.0-18.0); Mean Corpuscular HGB CONC 33.3 g/dL (32.0-36.0); Mean Corpuscular Hemoglobin 32.4 pg (27.0-31.0); Mean Corpuscular Volume 97.4 fL (78.0-98.0); Mean Platelet Volume 10.1 fL (7.4-10.4); Platelet Count 132 10x3/uL (130-400); RBC Distribution Width 12.8 % (11.5-14.5); Red Blood Cell (RBC) Count 4.17 mill/uL (4.70-6.10)
[2024-09-07 05:24] LABS: Anion Gap 16 mmol/L (10-20); BUN (Urea Nitrogen) 27 mg/dL (8.4-25.7); Calc. Creatinine Clearance 82 mL/min (70-130); Calcium 8.6 mg/dL (7.8-10.44); Carbon Dioxide 23 mmol/L (23-31); Chloride 100 mmol/L (98-107); Estimated GFR 70; Glucose 156 mg/dL (83-110); Potassium 4.1 mmol/L (3.5-5.1); Sodium 135 mmol/L (136-145)
[2024-09-08 04:31] LABS: Anion Gap 16 mmol/L (10-20); BUN (Urea Nitrogen) 27 mg/dL (8.4-25.7); Calc. Creatinine Clearance 94 mL/min (70-130); Calcium 8.5 mg/dL (7.8-10.44); Carbon Dioxide 25 mmol/L (23-31); Chloride 99 mmol/L (98-107); Estimated GFR 83; Glucose 172 mg/dL (83-110); Potassium 3.9 mmol/L (3.5-5.1); Sodium 136 mmol/L (136-145)
[2024-09-08] MEDS: Sacubitril 49 MG/Valsartan 51 MG TABLET PO SCH ×2 (11:55→21:34)
[2024-09-10] MEDS ORDERED: Melatonin 3 MG TAB PO PRN (10:46)
[2024-09-10] MEDS ORDERED: Iopamidol-370 76% 500 ML MDV (1 ML CHARGE) ONE (11:21)
[2024-09-10 16:07] LABS: #Basophils 0.04 10x3/uL (0.0-0.2); %Basophils 0.7 % (0.0-1.0); %Eosinophils 1.5 % (0.0-10.0); %Lymphocytes 10.3 % (21.0-51.0); %Monocytes 13.4 % (0.0-10.0); %Neutrophils 72.1 % (42.0-75.0); Hematocrit 45.7 % (42.0-52.0); Mean Corpuscular HGB CONC 32.8 g/dL (32.0-36.0); Mean Corpuscular Hemoglobin 32.6 pg (27.0-31.0); Mean Corpuscular Volume 99.3 fL (78.0-98.0); Mean Platelet Volume 9.4 fL (7.4-10.4); Platelet Count 178 10x3/uL (130-400); RBC Distribution Width 12.7 % (11.5-14.5)
[2024-09-10 16:22] LABS: ALT (SGPT) 28 U/L (Less than 45); AST (SGOT) 23 U/L (11-34); Albumin 2.9 g/dL (3.1-4.5); Alkaline Phosphatase 73 U/L (40-110); Anion Gap 26 mmol/L (10-20); BUN (Urea Nitrogen) 28 mg/dL (8.4-25.7); Bilirubin, Total 0.5 mg/dL (0.3-1.2); Calc. Creatinine Clearance 59 mL/min (70-130); Calcium 9.1 mg/dL (7.8-10.44); Carbon Dioxide 18 mmol/L (23-31); Chloride 98 mmol/L (98-107); Estimated GFR 57; Glucose 215 mg/dL (83-110); Potassium 4.9 mmol/L (3.5-5.1); Protein, Total 6.9 g/dL (5.8-8.1); Sodium 137 mmol/L (136-145)
[2024-09-10 16:26] LABS: Troponin I 0.019 ng/mL (< 0.028)
[2024-09-10] MEDS: Nitroglycerin 0.4 MG TAB (25 Tab Bottle) ONE (17:54)
[2024-09-10 20:25] LABS: Troponin I Less than 0.010 ng/mL (< 0.028)
[2024-09-11] MEDS ORDERED: Calcium Carbonate 500 MG ChewTAB PO PRN (09:53)
[2024-09-11 10:14] LABS: #Basophils 0.04 10x3/uL (0.0-0.2); %Basophils 0.7 % (0.0-1.0); %Eosinophils 2.4 % (0.0-10.0); %Lymphocytes 10.9 % (21.0-51.0); %Monocytes 14.6 % (0.0-10.0); %Neutrophils 68.9 % (42.0-75.0); Hematocrit 46.5 % (42.0-52.0); Hemoglobin 15.2 g/dL (14.0-18.0); Mean Corpuscular HGB CONC 32.7 g/dL (32.0-36.0); Mean Corpuscular Hemoglobin 32.5 pg (27.0-31.0); Mean Corpuscular Volume 99.4 fL (78.0-98.0); Mean Platelet Volume 8.9 fL (7.4-10.4); Platelet Count 184 10x3/uL (130-400); RBC Distribution Width 12.9 % (11.5-14.5); Red Blood Cell (RBC) Count 4.68 mill/uL (4.70-6.10)
[2024-09-11 10:28] LABS: Anion Gap 23 mmol/L (10-20); BUN (Urea Nitrogen) 27 mg/dL (8.4-25.7); Calc. Creatinine Clearance 63 mL/min (70-130); Calcium 9.1 mg/dL (7.8-10.44); Carbon Dioxide 19 mmol/L (23-31); Chloride 100 mmol/L (98-107); Estimated GFR 55; Glucose 148 mg/dL (83-110); Magnesium 2.2 mg/dL (1.6-2.6); Potassium 4.2 mmol/L (3.5-5.1); Sodium 138 mmol/L (136-145)
[2024-09-11 10:44] LABS: Troponin I Less than 0.010 ng/mL (< 0.028)
[2024-09-11] MEDS ORDERED: Electrolyte Replacement Protocol 1 EACH FS ONE (15:33)
[2024-09-11] MEDS ORDERED: Electrolyte Replacement Protocol FS PRN (15:45)
[2024-09-11] MEDS: Calcium Carbonate 600 MG + Vit D TAB PO SCH (16:24)
[2024-09-11] MEDS: Sodium Bicarbonate Tab 325 MG TAB PO SCH ×2 (16:25→21:13)
[2024-09-11] MEDS: Albumin 25% 25 GM (100 mL) BOT IVPB SCH (16:26)
[2024-09-11] MEDS: Cholecalciferol 1,000 UNITS (25 MCG) TAB PO SCH (21:14)
[2024-09-11] MEDS: Folic Acid 1 MG TAB PO SCH (21:14)
[2024-09-11] MEDS: Thiamine 100 MG TAB PO SCH (21:14)
[2024-09-11] MEDS: Multivit, Therapeutic 1 TAB PO SCH (21:15)
[2024-09-11] MEDS: Cyanocobalamin (Vitamin B-12) 1,000 MCG TAB PO SCH (21:16)
[2024-09-11] MEDS: Insulin Glargine 30 UNITS/0.3 ML VIAL SC SCH (21:16)
[2024-09-11] MEDS: Famotidine 20 MG TAB PO SCH (21:16)
[2024-09-11] MEDS: Nystatin Powder 15 GM BOT TOP SCH (21:40)
[2024-09-12 04:02] LABS: #Basophils 0.05 10x3/uL (0.0-0.2); %Basophils 1.1 % (0.0-1.0); %Eosinophils 7.3 % (0.0-10.0); %Lymphocytes 13.9 % (21.0-51.0); %Monocytes 16.2 % (0.0-10.0); %Neutrophils 58.6 % (42.0-75.0); Hematocrit 42.3 % (42.0-52.0); Hemoglobin 14.1 g/dL (14.0-18.0); Mean Corpuscular HGB CONC 33.3 g/dL (32.0-36.0); Mean Corpuscular Hemoglobin 32.3 pg (27.0-31.0); Mean Corpuscular Volume 96.8 fL (78.0-98.0); Mean Platelet Volume 9.3 fL (7.4-10.4); Platelet Count 177 10x3/uL (130-400); RBC Distribution Width 12.5 % (11.5-14.5); Red Blood Cell (RBC) Count 4.37 mill/uL (4.70-6.10)
[2024-09-12 04:17] LABS: Anion Gap 21 mmol/L (10-20); BUN (Urea Nitrogen) 25 mg/dL (8.4-25.7); Calc. Creatinine Clearance 69 mL/min (70-130); Calcium 9.3 mg/dL (7.8-10.44); Carbon Dioxide 21 mmol/L (23-31); Chloride 100 mmol/L (98-107); Estimated GFR 61; Glucose 159 mg/dL (83-110); Magnesium 2.2 mg/dL (1.6-2.6); Potassium 4.1 mmol/L (3.5-5.1); Sodium 138 mmol/L (136-145)
[2024-09-12] MEDS: Sacubitril 49 MG/Valsartan 51 MG TABLET PO SCH (08:54)
[2024-09-13 04:18] LABS: #Basophils 0.05 10x3/uL (0.0-0.2); %Basophils 1.1 % (0.0-1.0); %Eosinophils 7.3 % (0.0-10.0); %Lymphocytes 14.7 % (21.0-51.0); %Monocytes 16.3 % (0.0-10.0); %Neutrophils 57.7 % (42.0-75.0); Hemoglobin 14.5 g/dL (14.0-18.0); Mean Corpuscular HGB CONC 33.7 g/dL (32.0-36.0); Mean Corpuscular Hemoglobin 32.3 pg (27.0-31.0); Mean Corpuscular Volume 95.8 fL (78.0-98.0); Mean Platelet Volume 8.7 fL (7.4-10.4); Platelet Count 175 10x3/uL (130-400); RBC Distribution Width 12.5 % (11.5-14.5); Red Blood Cell (RBC) Count 4.49 mill/uL (4.70-6.10)
[2024-09-13 04:35] LABS: Anion Gap 20 mmol/L (10-20); BUN (Urea Nitrogen) 19 mg/dL (8.4-25.7); Calc. Creatinine Clearance 75 mL/min (70-130); Calcium 9.4 mg/dL (7.8-10.44); Carbon Dioxide 23 mmol/L (23-31); Chloride 100 mmol/L (98-107); Estimated GFR 67; Glucose 151 mg/dL (83-110); Potassium 4.3 mmol/L (3.5-5.1); Sodium 139 mmol/L (136-145)
[2024-09-13] MEDS: Famotidine 20 MG TAB PO SCH (09:03)
[2024-09-13] MEDS: Empagliflozin 10 MG TAB PO SCH (09:10)
[2024-09-14] MEDS: Spironolactone 25 MG TAB PO SCH (09:41)
[2024-09-14] MEDS: Insulin Glargine 30 UNITS/0.3 ML VIAL SC SCH (09:42)
[2024-09-14] MEDS: HYDROcodone/Acetaminophen 5/325 mg Tablet PO PRN (21:09)
[2024-09-15] MEDS: Insulin Lispro 100 UNIT/ML 10 ML VIAL SC PRN (21:28)
[2024-09-16] MEDS ORDERED: Ipratropium/Albuterol 3 ML NEB NEB PRN (03:47)
[2024-09-16] MEDS: Insulin Glargine 30 UNITS/0.3 ML VIAL SC SCH (09:13)
[2024-09-17 19:36] VITALS: TEMP 97.9
[2024-09-17 19:57] VITALS: BP 126/62
== END 2024-09-17 22:30 | DRG 492 ==
LOC: ERS 17:04 → 2NO 20:04 → SURG B 09-04 15:47 → 2NO 09-06 00:44 → SURG B 09-08 08:57 → PCU 09-10 16:28
PROVIDERS: ADMIT Specialist; ATTEND Specialist
PROC: 0QSG04Z Reposition Right Tibia with Internal Fixation Device, Open Approach (ICD-10-PCS; principal; 2024-09-05)
DX: S82.141A Displaced bicondylar fracture of right tibia, initial encounter for closed fracture (principal); E11.10 Type 2 diabetes mellitus with ketoacidosis without coma; N17.9 Acute kidney failure, unspecified; E87.1 Hypo-osmolality and hyponatremia; I13.0 Hypertensive heart and chronic kidney disease with heart failure and stage 1 through stage 4 chronic kidney disease, or unspecified chronic kidney disease; I50.22 Chronic systolic (congestive) heart failure; I42.9 Cardiomyopathy, unspecified; I47.20 Ventricular tachycardia, unspecified; W18.30XA Fall on same level, unspecified, initial encounter; I48.91 Unspecified atrial fibrillation; G14 Postpolio syndrome; E87.5 Hyperkalemia; E78.00 Pure hypercholesterolemia, unspecified; Z79.01 Long term (current) use of anticoagulants; Z88.0 Allergy status to penicillin; Z88.8 Allergy status to other drugs, medicaments and biological substances; Z79.4 Long term (current) use of insulin; Z79.899 Other long term (current) drug therapy; E11.22 Type 2 diabetes mellitus with diabetic chronic kidney disease; N18.30 Chronic kidney disease, stage 3 unspecified; K59.00 Constipation, unspecified
CPT/HCPCS: 36415; 36416; 71045; 71275; 76770; 80048; 80053; 81001; 82010; 82306; 82550; 82805; 83036; 83605; 83735; 83880; 83970; 84100; 84484; 85025; 85027; 85379; 85610; 85730; 86850; 86900; 86901; 93005; 93010; 93306; 93970; 94640; 97139; C1713; J0612; J0613; J1100; J1815; J2270; J2272; J2405; J2704; J3490; J7030; J7120; J7611; P9047; Q9967

== ENCOUNTER 2025-04-23 19:32 | Inpatient (IN) | payer MEDICARE, OTHER ==
[~2025-04-23 19:32] MED LIST changes: +Iopamidol 370 76% 100 ML VIAL ONE; -Iopamidol-370 76% 500 ML 1 ML ONE
[2025-04-23 20:05] LABS: #Basophils 0.04 10x3/uL (0.0-0.2); #Eosinophils Less than 0.03 10x3/uL (0.0-0.7); #Monocytes 0.81 10x3/uL (0.11-0.59); #Neutrophils 12.10 10x3/uL (1.40-6.50); %Basophils 0.3 % (0.0-1.0); %Eosinophils 0.1 % (0.0-10.0); %Lymphocytes 2.5 % (21.0-51.0); %Monocytes 6.0 % (0.0-10.0); %Neutrophils 90.3 % (42.0-75.0); Hematocrit 47.1 % (42.0-52.0); Hemoglobin 15.7 g/dL (14.0-18.0); Mean Corpuscular Hemoglobin 30.3 pg (27.0-31.0); Mean Corpuscular Volume 90.9 fL (78.0-98.0); Platelet Count 169 10x3/uL (130-400); Red Blood Cell (RBC) Count 5.18 mill/uL (4.70-6.10); White Blood Cell (WBC) Count 13.40 10x3/uL (4.8-10.8)
[2025-04-23 20:19] LABS: ALT (SGPT) 31 U/L (Less than 45); AST (SGOT) 36 U/L (11-34); Albumin 3.4 g/dL (3.1-4.5); Alkaline Phosphatase 93 U/L (40-110); Anion Gap 17 mmol/L (10-20); BUN (Urea Nitrogen) 18 mg/dL (8.4-25.7); Bilirubin, Total 1.0 mg/dL (0.3-1.2); Calc. Creatinine Clearance 0 mL/min (70-130); Calcium 9.5 mg/dL (7.8-10.44); Carbon Dioxide 23 mmol/L (23-31); Chloride 94 mmol/L (98-107); Globulin 4.1 g/dL (2.4-3.5); Glucose 121 mg/dL (83-110); Potassium 4.7 mmol/L (3.5-5.1); Sodium 129 mmol/L (136-145)
[2025-04-23] MEDS ORDERED: Acetaminophen 500 MG TAB ONE (20:23)
[2025-04-23] MEDS ORDERED: cefTRIAXone (ROCEPHIN) 2 GM VIAL ONE (21:39)
[2025-04-23] MEDS ORDERED: Melatonin 3 MG TAB PO PRN (23:32)
[2025-04-23] MEDS ORDERED: HYDROcodone/Acetaminophen 5/325 mg Tablet PO PRN (23:32)
[2025-04-23] MEDS ORDERED: Calcium Carbonate 500 MG ChewTAB PO PRN (23:35)
[2025-04-23] MEDS ORDERED: Ondansetron PF 4 MG/2 ML Vial IVP PRN (23:35)
[2025-04-23] MEDS ORDERED: Dextrose 50% Abboject 50 ML SYRINGE SLOW IVP PRN (23:36)
[2025-04-23] MEDS ORDERED: Glucagon 1 MG/ML KIT IM PRN (23:36)
[2025-04-23] MEDS ORDERED: Ibuprofen 600 MG TAB PO PRN (23:38)
[2025-04-23] MEDS ORDERED: Electrolyte Replacement Protocol 1 EACH FS PRN (23:45)
[2025-04-23 23:57] LABS: Bacteria/HPF None Seen HPF (None Seen); CAUTI Indications for Culture Alt mental st,lethar; Glucose, Urine (Dipstick) Greater than 1000 mg/dL (Negative); Leukocyte Negative Leu/uL (Negative); Protein, Urine (Dipstick) Negative (Neg-Trace); RBC/HPF 0-3 HPF (0-3); Specific Gravity, Urine 1.040 (1.002-1.036); WBC/HPF 0-3 HPF (0-3)
[2025-04-24 00:18] LABS: Urine Culture Reflex No No
[2025-04-24 00:20] VITALS: BMI 29.0
[2025-04-24 05:48] LABS: #Basophils 0.04 10x3/uL (0.0-0.2); #Eosinophils 0.11 10x3/uL (0.0-0.7); #Monocytes 1.01 10x3/uL (0.11-0.59); #Neutrophils 9.15 10x3/uL (1.40-6.50); %Basophils 0.4 % (0.0-1.0); %Eosinophils 1.0 % (0.0-10.0); %Lymphocytes 3.7 % (21.0-51.0); %Monocytes 9.3 % (0.0-10.0); %Neutrophils 84.7 % (42.0-75.0); Hematocrit 44.0 % (42.0-52.0); Hemoglobin 14.3 g/dL (14.0-18.0); Mean Corpuscular Hemoglobin 30.5 pg (27.0-31.0); Mean Corpuscular Volume 93.8 fL (78.0-98.0); Platelet Count 151 10x3/uL (130-400); Red Blood Cell (RBC) Count 4.69 mill/uL (4.70-6.10); White Blood Cell (WBC) Count 10.81 10x3/uL (4.8-10.8)
[2025-04-24 06:09] LABS: ALT (SGPT) 30 U/L (Less than 45); AST (SGOT) 34 U/L (11-34); Albumin 2.8 g/dL (3.1-4.5); Alkaline Phosphatase 84 U/L (40-110); Anion Gap 15 mmol/L (10-20); BUN (Urea Nitrogen) 16 mg/dL (8.4-25.7); Bilirubin, Total 0.6 mg/dL (0.3-1.2); Calc. Creatinine Clearance 0 mL/min (70-130); Calcium 8.8 mg/dL (7.8-10.44); Carbon Dioxide 25 mmol/L (23-31); Chloride 98 mmol/L (98-107); Globulin 3.4 g/dL (2.4-3.5); Glucose 64 mg/dL (83-110); Potassium 4.1 mmol/L (3.5-5.1); Sodium 134 mmol/L (136-145)
[2025-04-24] MEDS: Spironolactone 25 MG TAB PO SCH (08:21)
[2025-04-24] MEDS: Sacubitril 49 MG/Valsartan 51 MG TABLET PO SCH (08:21)
[2025-04-24] MEDS: Apixaban 5 MG TAB PO SCH (08:21)
[2025-04-24] MEDS ORDERED: Insulin Glargine 30 UNITS/0.3 ML VIAL SC SCH (09:00)
[2025-04-24] MEDS: Rosuvastatin 5 MG TAB PO SCH (20:38)
[2025-04-24] MEDS: cefTRIAXone\\ROCEPHIN 2 GM in Sodium Chloride 0.9% 100 ML IVPB SCH (20:39)
[2025-04-24] MEDS: Amiodarone 200 MG TAB PO SCH (20:43)
[2025-04-25 09:36] VITALS: BP 155/62; TEMP 97.7
== END 2025-04-25 11:13 | disposition home or self-care (01) | DRG 872 ==
LOC: ERS 19:32 → SURG B 22:50
PROVIDERS: ADMIT Student in an Organized Health Care Education/Training Program; ATTEND Internal Medicine
PROC: 3E03329 Introduction of Other Anti-infective into Peripheral Vein, Percutaneous Approach (ICD-10-PCS; principal; 2025-04-23)
PROC: 0T9B70Z Drainage of Bladder with Drainage Device, Via Natural or Artificial Opening (ICD-10-PCS; 2025-04-23)
DX: A41.9 Sepsis, unspecified organism (principal); N10 Acute pyelonephritis; I13.0 Hypertensive heart and chronic kidney disease with heart failure and stage 1 through stage 4 chronic kidney disease, or unspecified chronic kidney disease; I50.22 Chronic systolic (congestive) heart failure; E87.1 Hypo-osmolality and hyponatremia; I87.8 Other specified disorders of veins; I25.10 Atherosclerotic heart disease of native coronary artery without angina pectoris; E11.22 Type 2 diabetes mellitus with diabetic chronic kidney disease; K59.00 Constipation, unspecified; I48.91 Unspecified atrial fibrillation; I73.9 Peripheral vascular disease, unspecified; E78.5 Hyperlipidemia, unspecified; Z95.810 Presence of automatic (implantable) cardiac defibrillator; Z88.0 Allergy status to penicillin; Z88.8 Allergy status to other drugs, medicaments and biological substances; Z98.890 Other specified postprocedural states; Z79.4 Long term (current) use of insulin; Z86.711 Personal history of pulmonary embolism; Z79.01 Long term (current) use of anticoagulants
CPT/HCPCS: 36415; 36416; 71045; 74177; 80053; 81001; 83036; 83605; 85025; 87040; 93005; 96374; 97139; J0696; J1815; Q9967

== ENCOUNTER 2025-05-18 17:12 | Inpatient (IN) | payer MEDICARE, BC ==
[~2025-05-18 17:12] MED LIST changes: -Iopamidol 370 76% 100 ML VIAL ONE; +Iopamidol-370 76% 500 ML MDV (1 ML CHARGE) ONE
[2025-05-18 18:31] LABS: #Basophils 0.05 10x3/uL (0.0-0.2); #Eosinophils 0.03 10x3/uL (0.0-0.7); #Monocytes 0.90 10x3/uL (0.11-0.59); #Neutrophils 13.24 10x3/uL (1.40-6.50); %Basophils 0.3 % (0.0-1.0); %Eosinophils 0.2 % (0.0-10.0); %Lymphocytes 2.6 % (21.0-51.0); %Monocytes 6.1 % (0.0-10.0); %Neutrophils 90.3 % (42.0-75.0); Hematocrit 51.3 % (42.0-52.0); Hemoglobin 17.0 g/dL (14.0-18.0); Mean Corpuscular Hemoglobin 30.4 pg (27.0-31.0); Mean Corpuscular Volume 91.6 fL (78.0-98.0); Platelet Count 158 10x3/uL (130-400); Red Blood Cell (RBC) Count 5.60 mill/uL (4.70-6.10); White Blood Cell (WBC) Count 14.68 10x3/uL (4.8-10.8)
[2025-05-18 19:00] LABS: ALT (SGPT) 49 U/L (Less than 45); AST (SGOT) 43 U/L (11-34); Albumin 3.6 g/dL (3.1-4.5); Alkaline Phosphatase 98 U/L (40-110); Anion Gap 17 mmol/L (10-20); BUN (Urea Nitrogen) 22 mg/dL (8.4-25.7); Bilirubin, Total 1.1 mg/dL (0.3-1.2); Calc. Creatinine Clearance 0 mL/min (70-130); Calcium 9.9 mg/dL (7.8-10.44); Carbon Dioxide 24 mmol/L (23-31); Chloride 96 mmol/L (98-107); Globulin 4.1 g/dL (2.4-3.5); Glucose 81 mg/dL (83-110); Lipase 14 U/L (8-78); Potassium 4.4 mmol/L (3.5-5.1); Sodium 133 mmol/L (136-145)
[2025-05-18] MEDS ORDERED: Metoprolol Tartrate 5 MG (5 mL) VIAL ONE (19:05)
[2025-05-18 19:28] LABS: Bacteria/HPF None Seen HPF (None Seen); CAUTI Indications for Culture Alt mental st,lethar; Glucose, Urine (Dipstick) Greater than 1000 mg/dL (Negative); Leukocyte Negative Leu/uL (Negative); Protein, Urine (Dipstick) 30 mg/dL (Neg-Trace); RBC/HPF 0-3 HPF (0-3); Specific Gravity, Urine 1.020 (1.002-1.036); WBC/HPF 0-3 HPF (0-3)
[2025-05-18 19:33] LABS: Urine Culture Reflex No No
[2025-05-18] MEDS ORDERED: Clindamycin/D5W 900 MG in Premix 1 BAG IVPB SCH (20:30)
[2025-05-18] MEDS ORDERED: Vancomycin (BATCH) 2.5 GM in Premix 1 BAG IVPB SCH (20:30)
[2025-05-18] MEDS ORDERED: Dextrose 50% Abboject 50 ML SYRINGE SLOW IVP PRN (21:23)
[2025-05-18] MEDS ORDERED: Glucagon 1 MG/ML KIT IM PRN (21:23)
[2025-05-18] MEDS ORDERED: Calcium Carbonate 500 MG ChewTAB PO PRN (21:23)
[2025-05-18] MEDS ORDERED: Senokot S 8.6-50 MG TAB PO PRN (21:23)
[2025-05-18] MEDS ORDERED: Acetaminophen 325 MG TAB PO PRN (21:23)
[2025-05-18] MEDS ORDERED: Ondansetron PF 4 MG/2 ML Vial IVP PRN (21:23)
[2025-05-18] MEDS ORDERED: Guaifenesin DM 100-10/5 ML UDCUP PO PRN (21:23)
[2025-05-18] MEDS ORDERED: Melatonin 3 MG TAB PO PRN (21:27)
[2025-05-18] MEDS ORDERED: HYDROcodone/Acetaminophen 5/325 mg Tablet PO PRN (21:29)
[2025-05-18] MEDS ORDERED: Mirtazapine 15 MG TAB PO PRN (21:51)
[2025-05-19 00:33] VITALS: BMI 28.6
[2025-05-19] MEDS ORDERED: Pharmacy to Dose: VANCOMYCIN IVPB PRN (01:33)
[2025-05-19] MEDS: Apixaban 5 MG TAB PO SCH ×2 (02:04→10:14)
[2025-05-19 06:34] LABS: #Basophils 0.04 10x3/uL (0.0-0.2); #Eosinophils 0.04 10x3/uL (0.0-0.7); #Monocytes 1.07 10x3/uL (0.11-0.59); #Neutrophils 13.39 10x3/uL (1.40-6.50); %Basophils 0.3 % (0.0-1.0); %Eosinophils 0.3 % (0.0-10.0); %Lymphocytes 3.4 % (21.0-51.0); %Monocytes 7.1 % (0.0-10.0); %Neutrophils 88.3 % (42.0-75.0); Hematocrit 46.7 % (42.0-52.0); Hemoglobin 15.6 g/dL (14.0-18.0); Mean Corpuscular Hemoglobin 30.5 pg (27.0-31.0); Mean Corpuscular Volume 91.2 fL (78.0-98.0); Platelet Count 138 10x3/uL (130-400); Red Blood Cell (RBC) Count 5.12 mill/uL (4.70-6.10); White Blood Cell (WBC) Count 15.14 10x3/uL (4.8-10.8)
[2025-05-19 06:48] LABS: Anion Gap 13 mmol/L (10-20); BUN (Urea Nitrogen) 17 mg/dL (8.4-25.7); Calc. Creatinine Clearance 78 mL/min (70-130); Calcium 8.9 mg/dL (7.8-10.44); Carbon Dioxide 25 mmol/L (23-31); Chloride 96 mmol/L (98-107); Glucose 132 mg/dL (83-110); Potassium 4.3 mmol/L (3.5-5.1); Sodium 130 mmol/L (136-145); Vancomycin, Random 24.3 ug/mL (See Comment)
[2025-05-19 06:49] LABS: ALT (SGPT) 52 U/L (Less than 45); AST (SGOT) 50 U/L (11-34); Albumin 3.0 g/dL (3.1-4.5); Alkaline Phosphatase 88 U/L (40-110); Bilirubin, Direct 0.5 mg/dL (0.1-0.3); Bilirubin, Total 1.1 mg/dL (0.3-1.2)
[2025-05-19 06:59] LABS: CRP, High Sensitivity at Bryan 16.18 mg/dL (< or = 0.5)
[2025-05-19] MEDS ORDERED: Vancomycin 1 GM in Premix 1 BAG IVPB SCH (10:00)
[2025-05-19] MEDS: Sacubitril 49 MG/Valsartan 51 MG TABLET PO SCH (10:13)
[2025-05-19] MEDS: Spironolactone 25 MG TAB PO SCH (10:13)
[2025-05-19] MEDS: Metoprolol Succinate XL 25 MG ER.TAB PO SCH (10:13)
[2025-05-19] MEDS: Allopurinol 100 MG TAB PO SCH (10:13)
[2025-05-19] MEDS: Pantoprazole 40 MG DR.TAB PO SCH (10:13)
[2025-05-19 12:25] VITALS: BMI 28.6
[2025-05-19] MEDS: Vancomycin 1.5 GM / NS 500 ML VIAL-2-BAG IVPB SCH (16:02)
[2025-05-19] MEDS: Rosuvastatin 5 MG TAB PO SCH (21:06)
[2025-05-20 04:23] LABS: #Basophils 0.07 10x3/uL (0.0-0.2); #Eosinophils 0.66 10x3/uL (0.0-0.7); #Monocytes 1.32 10x3/uL (0.11-0.59); #Neutrophils 8.76 10x3/uL (1.40-6.50); %Basophils 0.6 % (0.0-1.0); %Eosinophils 5.7 % (0.0-10.0); %Lymphocytes 6.0 % (21.0-51.0); %Monocytes 11.4 % (0.0-10.0); %Neutrophils 75.4 % (42.0-75.0); Hematocrit 44.8 % (42.0-52.0); Hemoglobin 14.6 g/dL (14.0-18.0); Mean Corpuscular Hemoglobin 29.9 pg (27.0-31.0); Mean Corpuscular Volume 91.8 fL (78.0-98.0); Platelet Count 146 10x3/uL (130-400); Red Blood Cell (RBC) Count 4.88 mill/uL (4.70-6.10); White Blood Cell (WBC) Count 11.61 10x3/uL (4.8-10.8)
[2025-05-20 05:11] LABS: ALT (SGPT) 53 U/L (Less than 45); AST (SGOT) 52 U/L (11-34); Albumin 2.7 g/dL (3.1-4.5); Alkaline Phosphatase 89 U/L (40-110); Anion Gap 17 mmol/L (10-20); BUN (Urea Nitrogen) 22 mg/dL (8.4-25.7); Bilirubin, Total 0.7 mg/dL (0.3-1.2); Calc. Creatinine Clearance 80 mL/min (70-130); Calcium 8.8 mg/dL (7.8-10.44); Carbon Dioxide 20 mmol/L (23-31); Chloride 102 mmol/L (98-107); Globulin 3.6 g/dL (2.4-3.5); Glucose 91 mg/dL (83-110); Potassium 3.8 mmol/L (3.5-5.1); Sodium 135 mmol/L (136-145)
[2025-05-20 11:43] VITALS: BP 122/62; TEMP 97.8
[2025-05-20] MEDS: Cefdinir 300 MG CAP PO SCH (13:55)
== END 2025-05-20 12:47 | disposition home or self-care (01) | DRG 603 ==
LOC: ERS 17:12 → 2NO 21:18
PROVIDERS: ADMIT Student in an Organized Health Care Education/Training Program; ATTEND Student in an Organized Health Care Education/Training Program
DX: L03.317 Cellulitis of buttock (principal); L03.115 Cellulitis of right lower limb; I50.22 Chronic systolic (congestive) heart failure; I48.91 Unspecified atrial fibrillation; E11.9 Type 2 diabetes mellitus without complications; E78.5 Hyperlipidemia, unspecified; I11.0 Hypertensive heart disease with heart failure; L89.159 Pressure ulcer of sacral region, unspecified stage; E86.0 Dehydration; M10.9 Gout, unspecified; I87.2 Venous insufficiency (chronic) (peripheral); I25.10 Atherosclerotic heart disease of native coronary artery without angina pectoris; Z86.711 Personal history of pulmonary embolism; Z85.038 Personal history of other malignant neoplasm of large intestine; Z98.890 Other specified postprocedural states; Z95.810 Presence of automatic (implantable) cardiac defibrillator; Z79.899 Other long term (current) drug therapy; Z88.0 Allergy status to penicillin; Z88.8 Allergy status to other drugs, medicaments and biological substances; Z91.040 Latex allergy status; Z79.01 Long term (current) use of anticoagulants; Z79.4 Long term (current) use of insulin; Z79.84 Long term (current) use of oral hypoglycemic drugs
CPT/HCPCS: 36415; 36416; 71045; 74177; 80048; 80053; 80076; 80202; 81001; 83605; 83690; 83880; 84484; 85025; 86141; 87040; 87086; 87428; 93005; 96365; 96375; 97139; J0692; J1815; J3373; J3490; J7030; Q9967